=== PATIENT | female | born 1935 | race Caucasian/White ===

== ENCOUNTER 2016-11-01 15:29 | Inpatient (IN) | payer OTHER ==
[2016-11-01] MEDS ORDERED: MAGNESIUM SULF 50% (8.12 MEQ/2 ML-1 GM VIAL) IVPB ONE (15:48)
[2016-11-01] MEDS ORDERED: methylPREDNISolone NA SUCC 125 MG/2 ML VIAL IVPB ONE (15:48)
[2016-11-01] MEDS ORDERED: ALBUTEROL SO4 0.083% IH SOL 2.5 MG/3 ML VIAL.NEB. NEB PRN ×2 (15:48→17:56)
--- NOTE | 2016-11-01 15:48 | PDOC ---
History of Present Illness - General History Source: Patient - History of Present Illness Initial Comments: 11/01/16 16:29 The patient is an 81 year old female with a significant past medical history of COPD and HTN who is sent to the Emergency Department by Dr. Sparks for sob and hypoxia today. Pt reports experiencing productive cough with yellow sputum, SOB , and nasal congestion for one week. She denies fever, chills, abdominal pain, nausea, vomiting, chest pain, diarrhea , dysuria, hematuria, dizziness, headache, swelling. Pt is on Advir x2/day. Pt baseline O2 SAT is 91, was ~[address] Sparks office. Per family, the pt was given O2 but the pt declined it and ultimately returned it. (-) recent travel (-) sick contact PSH:appendectomy ( at age 14) SH: Former smoker PCP: Dr. Mundo Sparks Warehouse Assistant: Dr. Morris <Radhika Lopez - Last Filed: 11/01/16 16:29> <Filemon Voss - Last Filed: 11/01/16 17:53> - General Chief Complaint: Respiratory Stated Complaint: SOB, (PCP SENT) ADMIT Time Seen by Provider: 11/01/16 15:47 Past History <Radhika Lopez - Last Filed: 11/01/16 16:29> - Past Medical History Anemia: No Asthma: No Cancer: No Cardiac Disorders: No CVA: No COPD: Yes CHF: No Dementia: No Diabetes: No GI Disorders: No Disorders: No HTN: Yes Hypercholesterolemia: No Liver Disease: No Seizures: No Thyroid Disease: No - Surgical History Abdominal Surgery: No Appendectomy: Yes (age 14) Cardiac Surgery: No Cholecystectomy: No Lung Surgery: No Neurologic Surgery: No Orthopedic Surgery: No - Psycho/Social/Smoking Cessation Hx Anxiety: No Suicidal Ideation: No Smoking History: Former smoker Have you smoked in the past 12 months: No If you are a former smoker, when did you quit?: 1989 Information on smoking cessation initiated: No Hx Alcohol Use: No Drug/Substance Use Hx: No Substance Use Type: None Hx Substance Use Treatment: No <Filemon Voss - Last Filed: 11/01/16 17:53> - Past Medical History Allergies/Adverse Reactions: Allergies Allergy/AdvReac Type Severity Reaction Status Date / Time No Known Allergies Allergy Verified 11/01/16 15:46 Home Medications: Ambulatory Orders Amlodipine Besylate [Norvasc -] 10 mg PO DAILY 12/28/13 Losartan/Hydrochlorothiazide [Losartan-Hctz 100-25 mg Tab] 1 each PO DAILY 12/28 Nebivolol HCl [Bystolic] 5 mg PO DAILY 12/28/13 Oxycodone HCl [Roxicodone -] 5 mg PO Q6H PRN #7 tablet 12/28/13 Salmeterol/Fluticasone [Advair 250Mcg/50Mcg -] 1 inh IH BID 12/28/13 Tramadol HCl [Ultram] 50 mg PO QID PRN #20 tablet 12/28/13 Review of Systems - Review of Systems Able to Perform ROS?: Yes Comments:: 11/01/16 16:30 CONSTITUTIONAL: No reported: Fever, Chills, Diaphoresis, Generalized Weakness, Malaise, Loss of Appetite HEENT: Yes: nasal congestion No reported: Rhinorrhea,Throat Pain, Throat Swelling, Difficulty Swallowing, Mouth Swelling, Ear Pain, Eye Pain, Visual Changes CARDIOVASCULAR: No reported: Chest Pain, Syncope, Palpitations, Irregular Heart Rate, Lightheadedness, Peripheral Edema RESPIRATORY: Yes: cough, SOB No reported: Wheezing, Stridor, Hemoptysis GASTROINTESTINAL: No reported: Abdominal pain, Abdominal Distension, Nausea, Vomiting, Diarrhea, Constipation, Melena, Hematochezia GENITOURINARY: No reported: Dysuria, Frequency, Urgency, Hesitancy, Flank Pain, Genital Pain MUSCULOSKELETAL: No reported: Myalgia, Arthralgia, Joint Swelling, Back pain, Neck Pain SKIN: No reported: Rash, Itching, Pallor HEMEATOLOGIC/IMMUNOLOGIC: No reported: Easy Bleeding, Easy Bruising, Lymphadenopathy, Frequent infections ENDOCRINE: No reported: Unexplained Weight Gain, Unexplained Weight Loss, Heat Intolerance , Cold Intolerance NEUROLOGIC: No reported: Headache, Focal Weakness, Paresthesias, Vertigo, Lightheadedness, Unsteady Gait, Seizure, Mental Status Changes, Incontinence PSYCHIATRIC: No reported: Anxiety, Depression All Other Systems: Reviewed and Negative <Radhika Lopez - Last Filed: 11/01/16 16:29> *Physical Exam - Vital Signs Last Vital Signs Temp Pulse Resp BP Pulse Ox 97.5 F L 71 20 155/75 80 L 11/01/16 15:31 11/01/16 15:31 11/01/16 15:31 11/01/16 15:31 11/01/16 15:31 - Physical Exam Comments: 11/01/16 16:31 GENERAL: The patient is awake, alert, and fully oriented, Nontoxic - in no acute distress. HEAD: Normocephalic, atraumatic. EYES: extraocular movements intact, sclera anicteric, conjunctiva clear. ENT: Normal voice, Moist mucous membranes. NECK: Normal range of motion, supple LUNGS: mild tachypnea, scant wheezing, speaking long sentences, in no obvious distress HEART: Regular rate and rhythm, normal S1 and S2 without murmur, rub or gallop. ABDOMEN: Soft, nontender, normoactive bowel sounds. No guarding, no rebound. . No CVA tenderness EXTREMITIES: Normal range of motion, no edema. No clubbing or cyanosis. No cords, erythema, or tenderness. NEUROLOGICAL: No facial assymetry, Normal speech, moving all 4 extermities spontaneously and symmetrically PSYCH: Normal mood, normal affect. SKIN: Warm, Dry, normal turgor, <Radhika Lopez - Last Filed: 11/01/16 16:29> - Vital Signs Last Vital Signs Temp Pulse Resp BP Pulse Ox 97.5 F L 71 20 155/75 80 L 11/01/16 15:31 11/01/16 15:31 11/01/16 15:31 11/01/16 15:31 11/01/16 15:31 <Filemon Voss - Last Filed: 11/01/16 17:53> Heart Score/ECG Review - ECG Impressions Comment:: 11/01/16 17:52 Twelve-lead EKG was performed and reviewed by me. There is normal sinus rhythm with a normal rate. rate of [address]-T wave abnormality <Filemon Voss - Last Filed: 11/01/16 17:53> ED Treatment Course - LABORATORY CBC & Chemistry Diagram: 11/01/16 16:20 11/01/16 16:20 <Radhika Lopez - Last Filed: 11/01/16 16:29> - LABORATORY CBC & Chemistry Diagram: 11/01/16 16:20 11/01/16 16:20 <Filemon Voss - Last Filed: 11/01/16 17:53> Medical Decision Making - Medical Decision Making 11/01/16 16:04 81y F hx of hypertension, COPD presenting with 1 week of mild nasal congestion, cough or productive of yellowish sputum, without any associated fevers, chills, chest pain, nausea, vomiting, diaphoresis, abdominal pain. On exam the patient is well-appearing, mildly tachypneic however in no acute distress, speaking in long sentences, very mild, scattered wheezing on exam. Suspect possible COPD exacerbation secondary to pna vs influenza vs viral syndrome consider less likely acs w/o cp or typical anginal sypmtoms - will ck screening ekg will obtain blood work, vbg, cxr will give neb will reassess on 3L of NC, sat improves to 80 --> [address] sparks A portion of this note was documented by scribe services under my direction. I have reviewed the details of the note, within reason, and agree with the documentation with the following case summary and management plan written by me 11/01/16 17:15 influenza A postiive will give tamiflu as pts sat is so low, anticipate admission 11/01/16 17:50 labs erviewed will admit for further management of influenza and hypoxia to hospitlaist service. Case discussed in detail with admitting physician including history, physical exam and ancillary studies. Admitting physician has assumed care for the patient, will follow all pending diagnostics and will complete the evaluation and treatment. <Filemon Voss - Last Filed: 11/01/16 17:53> *DC/Admit/Observation/Transfer - Attestations Scribe Attestion: 11/01/16 16:31 Documentation prepared by Radhika Lopez, acting as medical radiation tech for Filemon Voss MD. <Radhika Lopez - Last Filed: 11/01/16 16:29> - Discharge Dispostion Admit: Yes <Filemon Voss - Last Filed: 11/01/16 17:53> Diagnosis at time of Disposition: Influenza due to influenza virus, type A, human, Hypoxia
[2016-11-01] MEDS ORDERED: MAGNESIUM SULF 50% (8.12 MEQ/2 ML-1 GM VIAL) ONE (16:05)
[2016-11-01] MEDS ORDERED: methylPREDNISolone NA SUCC 125 MG/2 ML VIAL ONE (16:06)
[2016-11-01] MEDS ORDERED: ALBUTEROL SO4 2.5/IPRATROPIUM 0.5 INH SOL 3 ML VIAL.NEB. NEB ONE (16:30)
[2016-11-01 16:33] LABS: MCHC 33.2 g/dl (32.0-36.0); MEAN CELL VOLUME 90.5 fl (80-96); PLATELET COUNT 458 K/MM3 (134-434); RDW 13.1 % (11.6-15.6); WHITE BLOOD COUNT 6.9 K/mm3 (4.0-10.0)
[2016-11-01 17:08] LABS: VENOUS BLOOD GAS HCO3 28.1 meq/L (22-29); VENOUS PH 7.39 (7.31-7.41)
[2016-11-01] MEDS ORDERED: OSELTAMIVIR PHOSPHATE 75 MG CAPSULE PO ONE (17:10)
[2016-11-01] MEDS ORDERED: OSELTAMIVIR PHOSPHATE 75 MG CAPSULE ONE (17:16)
[2016-11-01 17:19] LABS: ALBUMIN 3.8 g/dl (3.4-5.0); ANION GAP 9 (8-16); CALCIUM 9.4 mg/dL (8.5-10.1); CO2 28 mmol/L (21-32); CREATININE 0.7 mg/dL (0.55-1.02); GLUCOSE,RANDOM 105 mg/dL (74-106); SGOT/AST 27 U/L (15-37); SGPT/ALT 28 U/L (12-78)
[2016-11-01 17:20] LABS: ALK PHOS 79 U/L (45-117); BILIRUBIN,TOTAL 0.7 mg/dL (0.2-1.0); TOT PROT 7.3 g/dl (6.4-8.2)
--- NOTE | 2016-11-01 17:49 | PN ---
Progress Note (short form) - Note Progress Note: PULMONARY CONSULTATION DICTATED 11/01/16 IMP ACUTE ON CHRONIC HYPOXEMIC RESPIRATORY FAILURE ADVANCED COPD WITH ACUTE EXACERBATION INFLUENZA A CHRONIC HYPONATREMIA RUL NODULE STABLE HTN PLAN IV STEROIDS INHALED BRONCHODILATORS TAMIFLU NASAL O2 TO MAINTAIN O2 SAT 90% OR GREATER DR ARANDA Problem List - Problems (1) Acute on chronic respiratory failure with hypoxemia Code(s): J96.21 - ACUTE AND CHRONIC RESPIRATORY FAILURE WITH HYPOXIA (2) Influenza A Code(s): J10.1 - FLU DUE TO OTH IDENT INFLUENZA VIRUS W OTH RESP MANIFEST (3) Hyponatremia Code(s): E87.1 - HYPO-OSMOLALITY AND HYPONATREMIA (4) COPD exacerbation Code(s): J44.1 - CHRONIC OBSTRUCTIVE PULMONARY DISEASE W (ACUTE) EXACERBATION (5) Lung nodule Code(s): R91.1 - SOLITARY PULMONARY NODULE
[2016-11-01] MEDS: methylPREDNISolone NA SUCC 40 MG/1 ML VIAL IVPB SCH ×2 (18:02→22:33)
[2016-11-01] MEDS: ALBUTEROL SO4 2.5/IPRATROPIUM 0.5 INH SOL 3 ML VIAL.NEB. NEB SCH (18:02)
[2016-11-01 19:37] LABS: METAMYELOCYTE 2 % (0-2); PLATELET ESTIMATE ADEQUATE (NORMAL); POLYCHROMASIA 1+
--- NOTE | 2016-11-01 19:53 | PN ---
<NicholasAriesJuju - Last Filed: 11/01/16 19:53> Teaching Attending Note Name of Resident: Corie Burak <Cheryl Silva - Last Filed: 11/01/16 21:47> Teaching Attending Note ATTENDING PHYSICIAN STATEMENT I saw and evaluated the patient. I reviewed the resident's note and discussed the case with the resident. I agree with the resident's findings and plan as documented. SUBJECTIVE: The patient is a 81 year old female, who presents to the emergency department sent in by PMD, Dr. Sparks with SOB and hypoxia today. The patient also reports 1 week of cold symptoms: weakness, mild nasal congestion, productive cough ( yellow sputum) and associated SOB without any associated fevers, chills or muscle pains. She denies chest pain, headache and dizziness. She denies nausea, vomit, diarrhea and constipation. She denies dysuria, frequency, urgency and hematuria. Patient denies any sick contacts. PMhx: COPD (not on home O2) and HTN Social Hx: Former smoker 20 years ago Fam hx- [place], Brain aneurysm OBJECTIVE: Physical Last Vital Signs Temp Pulse Resp BP Pulse Ox 97.5 F L 88 19 143/60 93 L 11/01/16 15:31 11/01/16 19:26 11/01/16 19:26 11/01/16 19:26 11/01/16 19:26 GENERAL: Awake, alert, and fully oriented, in no acute distress HEENT: Atraumatic. PERRLA, EOMI. Moist mucosa. No JVD + nasal congestion. +mild lymphadenopathy. No erythema or exudate. LUNGS: + Bilateral fine crackles. No distress, speaks full sentences, clear to auscultation bilaterally. No wheezing. HEART: Regular rate and rhythm, normal S1 and S2. + systolic murmur on the R 2nd ICS. No rubs or gallops, peripheral pulses normal and equal bilaterally. ABDOMEN: Soft, nontender, normoactive bowel sounds. No guarding, no rebound. No masses EXTREMITIES: Normal inspection, Normal range of motion, no edema. No clubbing or cyanosis. NEUROLOGICAL: Cranial nerves II through XII grossly intact. Normal speech, gait not observed, no focal sensorimotor deficits SKIN: + Redness to face. Warm, Dry, normal turgor, no rashes or lesions noted. CBCD WBC 6.9 K/mm3 (4.0-10.0) 11/01/16 16:20 RBC 4.54 M/mm3 (3.60-5.2) 11/01/16 16:20 Hgb 13.6 GM/dL (10.7-15.3) 11/01/16 16:20 Hct 41.1 % (32.4-45.2) 11/01/16 16:20 MCV 90.5 fl (80-96) 11/01/16 16:20 MCHC 33.2 g/dl (32.0-36.0) 11/01/16 16:20 RDW 13.1 % (11.6-15.6) 11/01/16 16:20 Plt Count 458 K/MM3 (134-434) H 11/01/16 16:20 MPV 9.0 fl (7.5-11.1) 11/01/16 16:20 CMP Sodium 126 mmol/L (136-145) L 11/01/16 16:20 Potassium 4.2 mmol/L (3.5-5.1) 11/01/16 16:20 Chloride 89 mmol/L (98-107) L 11/01/16 16:20 Carbon Dioxide 28 mmol/L (21-32) 11/01/16 16:20 Anion Gap 9 (8-16) 11/01/16 16:20 BUN 13 mg/dL (7-18) 11/01/16 16:20 Creatinine 0.7 mg/dL (0.55-1.02) 11/01/16 16:20 Creat Clearance w eGFR > 60 (>60) 11/01/16 16:20 Calcium 9.4 mg/dL (8.5-10.1) 11/01/16 16:20 Total Bilirubin 0.7 mg/dL (0.2-1.0) 11/01/16 16:20 AST 27 U/L (15-37) 11/01/16 16:20 ALT 28 U/L (12-78) 11/01/16 16:20 Alkaline Phosphatase 79 U/L (45-117) 11/01/16 16:20 Total Protein 7.3 g/dl (6.4-8.2) 11/01/16 16:20 Albumin 3.8 g/dl (3.4-5.0) 11/01/16 16:20 IMAGING: Chest Xray Mild noncardiogenic pulmonary venous congestion versus interstitial infiltrates. ASSESSMENT AND PLAN: The patient is a 81 yo F wih a PMhx of HTN and COPD who is being admitted for acute respiratory failure secondary to COPD exacerbation with Influenza A. 1.) Acute Hypoxic Respiratory failure with hx of COPD - 3 L O2 via NC - Nebulization Q6 - Prednisone 40 mg PO DAILY - Maintain O2 saturation equal or greater to 90 - Pulmonary consult appreciated 2.) Influenza A Positive - Tamiflu - Respiratory Isolation - Tylenol PRN - Z Pack 3.) Newly identified Murmur - Get Echo Admit to Med Surg. Documentation prepared by Cheryl Silva, acting as diagnostic medical sonographer for Juju Peterson MD.
--- NOTE | 2016-11-01 21:02 | HP ---
CHIEF COMPLAINT: Cough PCP: Dr. Mundo Sparks Factory Focus Technician: Dr. Morris HISTORY OF PRESENT ILLNESS: The pt is a 84 year old female with a significant PMH of COPD, (not on Oxygen at home), HTN who presents to the hospital with productive cough that started one week ago. It is associated with yellow sputum production. Additionally she has been complaining of SOB and postnasal drip. Yesterday she noticed weakness. She visited her PCP today who referred her to the hospital because her oxygen saturation was ~80. Her baseline Oxygen Sat. is above 90. She is also complaining of chronic constipation. She denies fever, chills, muscle pains, sore throat, problems with swallowing, chest pain, palpitations. She denies N/V , diarrhea, LOC, dysuria, increased urgency, frequency. She denies sick contacts. ER course was notable for: (1)Chest X ray (2)Oxyg Sat 93 NC (3)Influenza A PAST MEDICAL HISTORY: COPD, HTN PAST SURGICAL HISTORY: Appendectomy Social History: Smoking:Former smoker, quit 30-40 years ago Alcohol:Denies Drugs: Denies Family History: [place], Aortic aneurism Mother: Brain hemorrhage Allergies No Known Allergies Allergy (Verified 11/01/16 15:46) HOME MEDICATIONS: Medication Instructions Recorded Amlodipine Besylate [Norvasc -] 10 mg PO DAILY 12/28/13 Losartan/Hydrochlorothiazide 1 each PO DAILY 12/28/13 [Losartan-Hctz 100-25 mg Tab] Nebivolol HCl [Bystolic] 5 mg PO DAILY 12/28/13 Salmeterol/Fluticasone [Advair 1 inh IH BID 12/28/13 250Mcg/50Mcg -] REVIEW OF SYSTEMS CONSTITUTIONAL: generalized weakness Absent: fever, chills, diaphoresis, malaise, loss of appetite, weight change HEENT: postnasal drip Absent: rhinorrhea, throat pain, throat swelling, difficulty swallowing, mouth swelling, ear pain, eye pain, visual changes CARDIOVASCULAR: Absent: chest pain, syncope, palpitations, irregular heart rate, lightheadedness , peripheral edema RESPIRATORY:cough Absent: shortness of breath, dyspnea with exertion, orthopnea, wheezing, stridor , hemoptysis GASTROINTESTINAL:constipation Absent: abdominal pain, abdominal distension, nausea, vomiting, diarrhea, , melena, hematochezia GENITOURINARY: Absent: dysuria, frequency, urgency, hesitancy, hematuria, flank pain, genital pain MUSCULOSKELETAL: Absent: myalgia, arthralgia, joint swelling, back pain, neck pain SKIN: Absent: rash, itching, pallor HEMATOLOGIC/IMMUNOLOGIC: Absent: easy bleeding, easy bruising, lymphadenopathy, frequent infections ENDOCRINE: Absent: unexplained weight gain, unexplained weight loss, heat intolerance, cold intolerance NEUROLOGIC: Absent: headache, focal weakness or paresthesias, dizziness, gait not observed, seizure, mental status changes, bladder or bowel incontinence PSYCHIATRIC: Absent: anxiety, depression, suicidal or homicidal ideation, hallucinations. PHYSICAL EXAMINATION Vital Signs - 24 hr 11/01/16 19:26 Pulse Rate [ 88 Apical] Respiratory 19 Rate Blood Pressure 143/60 [Right Arm] O2 Sat by Pulse 93 L Oximetry (%) GENERAL: Awake, alert, and fully oriented, in no acute distress. HEAD: Normal with no signs of trauma. EYES: Pupils equal, round and reactive to light, extraocular movements intact, sclera anicteric, conjunctiva clear. No lid lag. EARS, NOSE, THROAT: Ears normal, nares congested, oropharynx clear without exudates. Moist mucous membranes. NECK: Normal range of motion, supple without lymphadenopathy, JVD, or masses. LUNGS: Breath sounds equal, mild fine crackles B/L, no wheezes, no accessory muscle use. HEART: Regular rate and rhythm, normal S1 and S2, systolic murmur in second right intercostal space and apex, rub or gallop. ABDOMEN: Soft, nontender, not distended, normoactive bowel sounds, no guarding, no rebound, no masses. No hepatomegaly or splenomegaly. MUSCULOSKELETAL: Normal range of motion at all joints. No bony deformities or tenderness. No CVA tenderness. UPPER EXTREMITIES: 2+ pulses, warm, well-perfused. No cyanosis. No clubbing. Cap refill <2 seconds. No peripheral edema. LOWER EXTREMITIES: 2+ pulses, warm, well-perfused. No calf tenderness. No peripheral edema. NEUROLOGICAL: Cranial nerves II-XII intact. Normal speech. Normal gait. PSYCHIATRIC: Cooperative. Good eye contact. Appropriate mood and affect. SKIN: Warm, dry, normal turgor, rash on face. Chest Xray Mild noncardiogenic pulmonary venous congestion versus interstitial infiltrates. ASSESSMENT/PLAN: The pt is a 84 year old female with a significant PMH of COPD, HTN who presents to the hospital with productive cough. It started one week ago, she produced yellow sputum associated with SOB and postnasal drip. Yesterday she noticed weakness.She visited her PCP today who referred her to the hospital because her oxygen saturation was low. In the ED it was 80 and improved to 93 on NC. Acute respiratory failure due to COPD exacerbation: -continue Douonebs, Albuterol -continue Methylprednisolone 40 mg Q6h -Oxygen supplementation 3L NC - continue Azithromycin Influenza A -Tamiflu -respiratory isolation -Tylenol 650 mg Q6H -vital signs -repeart CBC, BMP in AM Chronic hyponatremia: -monitor -IVF Newly identified heart murmur; -ECHO HTN: continue home medications: Losartan/HCTZ and Amlodypine 10 mg, Bystolic 5 mg Daily DVT prophylaxis: -SCDs F/E/N: NS/Low Na/Regular Disposition; med surg Problem List - Problem (1) Acute on chronic respiratory failure with hypoxemia Code(s): J96.21 - ACUTE AND CHRONIC RESPIRATORY FAILURE WITH HYPOXIA (2) COPD exacerbation Code(s): J44.1 - CHRONIC OBSTRUCTIVE PULMONARY DISEASE W (ACUTE) EXACERBATION (3) Hyponatremia Code(s): E87.1 - HYPO-OSMOLALITY AND HYPONATREMIA (4) Influenza A Code(s): J10.1 - FLU DUE TO OTH IDENT INFLUENZA VIRUS W OTH RESP MANIFEST (5) Lung nodule Code(s): R91.1 - SOLITARY PULMONARY NODULE Visit type - Emergency Visit Emergency Visit: Yes ED Registration Date: 11/01/16 Care time: The patient presented to the Emergency Department on the above date and was hospitalized for further evaluation of their emergent condition. - New Patient This patient is new to me today: Yes Date on this admission: 11/02/16 - Critical Care Critical Care patient: No
[2016-11-01] MEDS ORDERED: ACETAMINOPHEN 325 MG TABLET (FP) PO PRN (21:15)
[2016-11-01 23:22] VITALS: BMI 24.2
[2016-11-02] MEDS ORDERED: AZITHROMYCIN IVPB 250 ML IVPB ONE (02:00)
[2016-11-02] MEDS: methylPREDNISolone NA SUCC 40 MG/1 ML VIAL IVPB SCH ×4 (03:06→21:01)
[2016-11-02] MEDS ORDERED: OSELTAMIVIR PHOSPHATE 30 MG CAPSULE PO SCH (06:00)
[2016-11-02] MEDS ORDERED: OSELTAMIVIR PHOSPHATE 75 MG CAPSULE PO SCH (06:00)
[2016-11-02] MEDS ORDERED: PT OWN MED DRAWER 7, Y5N ONE ×3 (06:28→22:03)
[2016-11-02] MEDS: guaiFENesin 200 MG/10 ML 10 ML UNIT-DOSE CUPS PO PRN ×2 (06:50→14:00)
[2016-11-02] MEDS: OSELTAMIVIR PHOSPHATE 6 MG/1 ML - 60ML BOTTLE PO SCH ×2 (06:50→09:36)
[2016-11-02] MEDS: ALBUTEROL SO4 2.5/IPRATROPIUM 0.5 INH SOL 3 ML VIAL.NEB. NEB SCH ×4 (07:05→19:35)
--- NOTE | 2016-11-02 08:37 | CONS ---
DATE OF CONSULTATION: 11/01/2016 REFERRING PHYSICIAN: Dr. Sparks HISTORY: The patient is an 81-year-old white female known to me from previous office visits who has COPD and bronchodilators and refuses O2, hypertension, history of right upper lobe nodule stable since 2010, history of tobacco use years ago admitted to [facility] with increasing shortness of breath, cough, and bronchospasm. The patient for the past week or so has been having increased shortness of breath, cough with yellow sputum as well as nasal congestion. She denied any chest pain or palpitations. She denied any fever or chills. She refused to go to the emergency room the past couple of days. Today she went to Dr. Sparks' office and noted to be mildly hypoxic in the 80s at which time the patient was referred to the emergency room. In the ER, she denies inhaled bronchodilators with some improvement. Influenza screen came back positive for influenza A. A stated before, she has a longstanding history of COPD and has refused home O2. She had O2 and returned it back to the distributor. She also has a history of hypertension. There is no history of occupational exposures to chemicals or fumes. MEDICATIONS: Prior to admission include Norvasc, losartan, Advair, Ultram, Roxicodone, and Bystolic. REVIEW OF SYSTEMS: Positive shortness of breath, positive cough, positive bronchospasm. No chest pain, no palpitations, no nausea, no vomiting. Positive cough, positive sputum. No hemoptysis. PHYSICAL EXAMINATION: General: The patient is an elderly white female well developed, well nourished dyspneic in no acute respiratory distress. Vital Signs: She is currently afebrile. Blood pressure is 155/75, respiratory rate is 20, O2 saturation is in the 80s at rest room air, 94 on O2. HEENT: Normocephalic and atraumatic. Neck: Supple. Heart: Regular with normal S1, S2. Chest: A few scattered bilateral wheezes, bibasilar crackles. Abdomen: Soft. Bowel sounds are positive. Extremities: No cyanosis or edema. LABORATORIES: WBCs 6.9, hemoglobin 13.6, hematocrit 41.4 with a platelet count of 458,000. Blood gas VBG: PH 7.39, PCO2 of 47, PO2 of 39.3. Sodium 126, BUN 13, creatinine 0.7. Chest x-ray revealed increased markings bilaterally. IMPRESSION: 1. Advanced chronic obstructive pulmonary disease with acute exacerbation. 2. Influenza A. 3. History of chronic hyponatremia. 4. Hypertension. 5. History of right upper nodule, stable since 2010. PLAN: IV steroids, inhaled bronchodilators, Tamiflu, supplemental O2, obtain follow up chest x-rays, cultures. DONOVAN ARANDA M.D. [id number]
[2016-11-02 09:20] LABS: MCH 31.6 pg (25.7-33.7); MCHC 34.8 g/dl (32.0-36.0); MEAN CELL VOLUME 90.7 fl (80-96); MEAN PLT VOLUME 9.2 fl (7.5-11.1); PLATELET COUNT 401 K/MM3 (134-434); RDW 13.2 % (11.6-15.6); WHITE BLOOD COUNT 7.7 K/mm3 (4.0-10.0)
[2016-11-02 10:07] LABS: CALCIUM 8.7 mg/dL (8.5-10.1); CREATININE 0.6 mg/dL (0.55-1.02)
[2016-11-02] MEDS: LOSARTAN 50MG/HCTZ 12.5MG 1 TAB (FP) PO SCH (10:36)
[2016-11-02] MEDS: amLODIPine BESYLATE 10 MG TABLET (FP) PO SCH (10:37)
[2016-11-02] MEDS: NEBIVOLOL 5 MG TABLET (FP) PO SCH (10:37)
[2016-11-02] MEDS: BUDESONIDE/FORMETEROL FUMARATE 80/4.5 mcg INHALER IH SCH ×2 (10:38→21:01)
--- NOTE | 2016-11-02 12:52 | PN ---
Progress Note (short form) - Note Progress Note: ID consult dictated imp/reccd influenza A copd tamiflu isolation steroids/nebs per pulmonary d/w Dr Morris
--- NOTE | 2016-11-02 12:52 | PN ---
Progress Note, Physician History of Present Illness: PULMONARY ALERT,FEELING BETTER LESS DYSPNEIC,LESS COUGH - Current Medication List Current Medications: Active Medications Acetaminophen (Tylenol -) 650 mg PO Q6H PRN PRN Reason: FEVER OR PAIN Albuterol Sulfate (Ventolin 0.083% Nebulizer Soln -) 1 amp NEB Q4H PRN PRN Reason: SHORT OF BREATH/WHEEZING Albuterol/Ipratropium (Duoneb -) 1 amp NEB QIDR [facility] Last Admin: 11/02/16 11:50 Dose: 1 amp Amlodipine Besylate (Norvasc -) 10 mg PO DAILY [facility] Last Admin: 11/02/16 10:37 Dose: 10 mg Budesonide/Formoterol Fumarate (Symbicort 80/4.5mcg -) 2 puff IH BID [facility] Last Admin: 11/02/16 10:38 Dose: 2 puff Guaifenesin (Robitussin -) 10 ml PO Q6H PRN PRN Reason: COUGH Last Admin: 11/02/16 06:50 Dose: 10 ml HCTZ/Losartan Potassium (Hyzaar -) 2 tab PO DAILY [facility] Last Admin: 11/02/16 10:36 Dose: 2 tab Methylprednisolone Sodium Succinate (Solu-Medrol -) 40 mg IVPB Q6H-IV [facility] Last Admin: 11/02/16 08:42 Dose: 40 mg Nebivolol (Bystolic -) 5 mg PO DAILY [facility] Last Admin: 11/02/16 10:37 Dose: 5 mg Oseltamivir Phosphate (Tamiflu Oral Suspension -) 30 mg PO BID [facility] Last Admin: 11/02/16 09:36 Dose: Not Given - Objective Vital Signs: Vital Signs Temperature 98.4 F 11/02/16 08:00 Pulse Rate 78 11/02/16 12:20 Respiratory Rate 20 11/02/16 08:00 Blood Pressure 143/75 11/02/16 08:00 O2 Sat by Pulse Oximetry (%) 94 L 11/02/16 12:20 Constitutional: Yes: Well Nourished, Calm Eyes: Yes: WNL HENT: Yes: WNL Neck: Yes: WNL Cardiovascular: Yes: Regular Rate and Rhythm, S1, S2 Respiratory: Yes: Wheezes (LESS WHEEZES JONN) Gastrointestinal: Yes: Normal Bowel Sounds, Soft Extremities: Yes: WNL Edema: No Labs: CBC, BMP 11/02/16 08:00 11/02/16 08:00 Problem List - Problems (1) Acute on chronic respiratory failure with hypoxemia Code(s): J96.21 - ACUTE AND CHRONIC RESPIRATORY FAILURE WITH HYPOXIA (2) Influenza A Code(s): J10.1 - FLU DUE TO OTH IDENT INFLUENZA VIRUS W OTH RESP MANIFEST (3) Hyponatremia Code(s): E87.1 - HYPO-OSMOLALITY AND HYPONATREMIA (4) COPD exacerbation Code(s): J44.1 - CHRONIC OBSTRUCTIVE PULMONARY DISEASE W (ACUTE) EXACERBATION (5) Lung nodule Code(s): R91.1 - SOLITARY PULMONARY NODULE Assessment/Plan IMP ACUTE ON CHRONIC HYPOXEMIC RESPIRATORY FAILURE ADVANCED COPD WITH ACUTE EXACERBATION INFLUENZA A CHRONIC HYPONATREMIA RUL NODULE STABLE HTN PLAN CONTINUE IV STEROIDS INHALED BRONCHODILATORS TAMIFLU NASAL O2 TO MAINTAIN O2 SAT 90% OR GREATER DR ARANDA Problem List - Problems (1) Acute on chronic respiratory failure with hypoxemia Code(s): J96.21 - ACUTE AND CHRONIC RESPIRATORY FAILURE WITH HYPOXIA (2) Influenza A Code(s): J10.1 - FLU DUE TO OTH IDENT INFLUENZA VIRUS W OTH RESP MANIFEST (3) Hyponatremia Code(s): E87.1 - HYPO-OSMOLALITY AND HYPONATREMIA (4) COPD exacerbation Code(s): J44.1 - CHRONIC OBSTRUCTIVE PULMONARY DISEASE W (ACUTE) EXACERBATION (5) Lung nodule Code(s): R91.1 - SOLITARY PULMONARY NODULE
--- NOTE | 2016-11-02 13:35 | CONS ---
INFECTIOUS DISEASE CONSULTATION DATE OF CONSULTATION: DATE OF DICTATION: 11/02/2016 HISTORY: This is an 81-year-old woman with a past medical history of COPD. She did get a flu shot this year. She presented with a 1-week history of a cough with productive sputum, runny nose. She denies any fevers or chills. She did have progressive shortness of breath. She saw her primary doctor who noted she was hypoxic and advised her to come to the emergency room. She was noted to have an O2 saturation in the 80s, and her baseline is above 90. She has no complaints of nausea/vomiting, diarrhea or dysuria. She denies fevers or chills. She had an influenza screen done in the emergency room that was positive, and she was noted to be mildly hypoxic. PAST MEDICAL HISTORY: Her past medical history is notable for: 1. COPD 2. Hypertension SURGICAL HISTORY: Appendectomy FAMILY HISTORY: She has a family history of aortic aneurysm and brain hemorrhage in her parents. ALLERGIES: She has no known drug allergies MEDICATIONS: Medications at home: 1. Norvasc 2. Losartan 3. Hydrochlorothiazide 4. Bystolic 5. Advair SOCIAL HISTORY: She is a former smoker. She quit many years. There is no history of any substance use. She lives alone. REVIEW OF SYSTEMS: Review of systems is as per HPI. She is anxious to go home. PHYSICAL EXAM: Vital signs: Temperature is 98.4. Blood pressure is 143/75. Pulse is 78. Respiratory rate is 20. She is having 94% on 3 liters. HEENT exam: She is normocephalic. Her eyes are anicteric. She has no thrush or pharyngitis. Her neck is supple. Lungs: Her lungs have scattered rhonchi. Heart: Her heart is regular rate and rhythm. Abdomen: Her abdomen is soft, nontender. Extremities: Extremities are without edema. White count is 7.7, hemoglobin 12. Platelets are 401. BUN and creatinine are 18 and 0.6. LFTs are normal. Influenza screen is positive. SUMMARY: This is an 81-year-old woman with influenza, COPD and some hypoxemia. Her chest x-ray is negative for any infiltrate. Suspect her hypoxemia is due to acute viral illness and COPD exacerbation. PLAN: Would treat her with: 1. Tamiflu droplet 2. Isolation 3. Steroids 4. Nebulizer for pulmonary 5. O2 as needed Case was discussed with Dr. Edgar Morris who is her allied health professional. Arlene [id number]
--- NOTE | 2016-11-02 20:58 | PN ---
Physical Exam: SUBJECTIVE: Patient seen and examined Patient is feeling better, with no acute distress. No further hemoptysis, no nausea or vomiting. OBJECTIVE: Vital Signs Temperature 98.5 F 11/02/16 17:00 Pulse Rate 70 11/02/16 17:00 Respiratory Rate 20 11/02/16 17:00 Blood Pressure 135/60 11/02/16 17:00 O2 Sat by Pulse Oximetry (%) 92 L 11/02/16 15:00 GENERAL: The patient is awake, alert, and fully oriented, in no acute distress. HEAD: Normal with no signs of trauma. EYES: PERRL, extraocular movements intact, sclera anicteric, conjunctiva clear. ENT: Ears normal, oropharynx clear without exudates, moist mucous membranes. NECK: Trachea midline, full range of motion, supple. LUNGS: Breath sounds equal, clear to auscultation bilaterally, no wheezes, no crackles, no accessory muscle use. HEART: Regular rate and rhythm, S1, S2 without murmur, rub or gallop. ABDOMEN: Soft, nontender, nondistended, normoactive bowel sounds, no guarding, no rebound, no hepatosplenomegaly, no masses. EXTREMITIES: 2+ pulses, warm, well-perfused, no edema. NEUROLOGICAL: Cranial nerves II through XII grossly intact. Normal speech, gait not observed. PSYCH: Normal mood, normal affect. SKIN: Warm, dry, normal turgor, no rashes or lesions noted CBCD WBC 7.7 K/mm3 (4.0-10.0) 11/02/16 08:00 RBC 3.80 M/mm3 (3.60-5.2) 11/02/16 08:00 Hgb 12.0 GM/dL (10.7-15.3) D 11/02/16 08:00 Hct 34.4 % (32.4-45.2) D 11/02/16 08:00 MCV 90.7 fl (80-96) 11/02/16 08:00 MCHC 34.8 g/dl (32.0-36.0) 11/02/16 08:00 RDW 13.2 % (11.6-15.6) 11/02/16 08:00 Plt Count 401 K/MM3 (134-434) 11/02/16 08:00 MPV 9.2 fl (7.5-11.1) 11/02/16 08:00 CMP Sodium 126 mmol/L (136-145) L 11/02/16 08:00 Potassium 4.6 mmol/L (3.5-5.1) 11/02/16 08:00 Chloride 89 mmol/L (98-107) L 11/02/16 08:00 Carbon Dioxide 29 mmol/L (21-32) 11/02/16 08:00 Anion Gap 8 (8-16) 11/02/16 08:00 BUN 18 mg/dL (7-18) D 11/02/16 08:00 Creatinine 0.6 mg/dL (0.55-1.02) 11/02/16 08:00 Creat Clearance w eGFR > 60 (>60) 11/01/16 16:20 Random Glucose 131 mg/dL (74-106) H D 11/02/16 08:00 Calcium 8.7 mg/dL (8.5-10.1) 11/02/16 08:00 Total Bilirubin 0.7 mg/dL (0.2-1.0) 11/01/16 16:20 AST 27 U/L (15-37) 11/01/16 16:20 ALT 28 U/L (12-78) 11/01/16 16:20 Alkaline Phosphatase 79 U/L (45-117) 11/01/16 16:20 Total Protein 7.3 g/dl (6.4-8.2) 11/01/16 16:20 Albumin 3.8 g/dl (3.4-5.0) 11/01/16 16:20 Active Medications Generic Name Dose Route Start Last Admin Trade Name Freq PRN Reason Stop Dose Admin Acetaminophen 650 mg 11/01/16 21:15 Tylenol - PO Q6H PRN FEVER OR PAIN Albuterol Sulfate 1 amp 11/01/16 17:56 Ventolin 0.083% Nebulizer Soln - NEB Q4H PRN SHORT OF BREATH/WHEEZING Albuterol/Ipratropium 1 amp 11/01/16 18:00 11/02/16 19:35 Duoneb - NEB 1 amp QIDR [facility] Administration Amlodipine Besylate 10 mg 11/02/16 10:00 11/02/16 10:37 Norvasc - PO 10 mg DAILY [facility] Administration Budesonide/Formoterol Fumarate 2 puff 11/02/16 10:00 11/02/16 10:38 Symbicort 80/4.5mcg - IH 2 puff BID [facility] Administration Guaifenesin 10 ml 11/02/16 06:36 11/02/16 14:00 Robitussin - PO 10 ml Q6H PRN Administration COUGH HCTZ/Losartan Potassium 2 tab 11/02/16 10:00 11/02/16 10:36 Hyzaar - PO 2 tab DAILY [facility] Administration Methylprednisolone Sodium Succinate 40 mg 11/01/16 18:00 11/02/16 14:00 Solu-Medrol - IVPB 40 mg Q6H-IV [facility] Administration Nebivolol 5 mg 11/02/16 10:00 11/02/16 10:37 Bystolic - PO 5 mg DAILY [facility] Administration Oseltamivir Phosphate 75 mg 11/02/16 22:00 Tamiflu - PO 11/07/16 23:00 BID [facility] ASSESSMENT/PLAN: The patient is a 81 yo F wih a PMhx of HTN and COPD who is being admitted for acute respiratory failure secondary to COPD exacerbation with Influenza A. # Acute Hypoxic Respiratory failure with hx of COPD , on 3 L O2 via NC, nebulizer treatments, solumedrol IV q6h, symbicort Maintain O2 saturation equal or greater to 90, Pulmonary consult appreciated # Influenza A Positive continue Tamiflu , Respiratory Isolation, droplet precaution - Tylenol PRN , Z Pack # HTN continue Norvasc ,losartan,hctz # Newly identified Murmur Get Echo Admit to Med Surg. Visit type - Emergency Visit Emergency Visit: Yes ED Registration Date: 11/01/16 Care time: The patient presented to the Emergency Department on the above date and was hospitalized for further evaluation of their emergent condition. - New Patient This patient is new to me today: Yes Date on this admission: 11/02/16 - Critical Care Critical Care patient: No
[2016-11-02] MEDS: OSELTAMIVIR PHOSPHATE 75 MG CAPSULE PO SCH (21:01)
--- NOTE | 2016-11-02 23:29 | EKG ---
Test Reason : Blood Pressure : / mmHG Vent. Rate : 086 BPM Atrial Rate : 086 BPM P-R Int : 158 ms QRS Dur : 094 ms QT Int : 386 ms P-R-T Axes : 076 053 050 degrees QTc Int : 461 ms NORMAL SINUS RHYTHM WITH SINUS ARRHYTHMIA POSSIBLE LEFT ATRIAL ENLARGEMENT NONSPECIFIC ST ABNORMALITY ABNORMAL ECG NO PREVIOUS ECGS AVAILABLE Confirmed by DONNA HARDIN MD ([id number]) on 11/02/2016 11:28:41 PM Referred By: Confirmed By:DONNA HARDIN MD
[2016-11-03] MEDS: ALBUTEROL SO4 2.5/IPRATROPIUM 0.5 INH SOL 3 ML VIAL.NEB. NEB SCH ×4 (00:30→23:05)
[2016-11-03] MEDS: methylPREDNISolone NA SUCC 40 MG/1 ML VIAL IVPB SCH ×4 (02:06→21:19)
[2016-11-03] MEDS: guaiFENesin 200 MG/10 ML 10 ML UNIT-DOSE CUPS PO PRN (09:19)
[2016-11-03] MEDS: amLODIPine BESYLATE 10 MG TABLET (FP) PO SCH (09:20)
[2016-11-03] MEDS: OSELTAMIVIR PHOSPHATE 75 MG CAPSULE PO SCH ×2 (09:20→21:20)
[2016-11-03] MEDS: LOSARTAN 50MG/HCTZ 12.5MG 1 TAB (FP) PO SCH (09:21)
[2016-11-03] MEDS: BUDESONIDE/FORMETEROL FUMARATE 80/4.5 mcg INHALER IH SCH ×2 (09:23→21:19)
[2016-11-03] MEDS ORDERED: PT OWN MED DRAWER 7, Y5N ONE ×2 (09:23→21:08)
[2016-11-03] MEDS: NEBIVOLOL 5 MG TABLET (FP) PO SCH (09:24)
--- NOTE | 2016-11-03 10:46 | PN ---
Progress Note (short form) - Note Progress Note: Patient is feeling weak bur feeling better , son and grandson at bedside. Vital Signs Temperature 98.7 F 11/03/16 09:02 Pulse Rate 90 11/03/16 09:02 Respiratory Rate 20 11/03/16 09:02 Blood Pressure 131/71 11/03/16 09:02 O2 Sat by Pulse Oximetry (%) 96 11/02/16 21:00 GENERAL: The patient is awake, alert, and fully oriented, in no acute distress. HEAD: Normal with no signs of trauma. EYES: PERRL, extraocular movements intact, sclera anicteric, conjunctiva clear. ENT: Ears normal, oropharynx clear without exudates, moist mucous membranes. NECK: Trachea midline, full range of motion, supple. LUNGS: Breath sounds equal, clear to auscultation bilaterally, no wheezes, no crackles, no accessory muscle use. HEART: Regular rate and rhythm, S1, S2 without murmur, rub or gallop. ABDOMEN: Soft, nontender, nondistended, normoactive bowel sounds, no guarding, no rebound, no masses appreciated. EXTREMITIES: 2+ pulses, warm, well-perfused, no edema. NEUROLOGICAL: Cranial nerves II through XII grossly intact. Normal speech, gait not observed. PSYCH: Normal mood, normal affect. SKIN: Warm, dry, normal turgor, no rashes or lesions noted CBCD WBC 7.7 K/mm3 (4.0-10.0) 11/02/16 08:00 RBC 3.80 M/mm3 (3.60-5.2) 11/02/16 08:00 Hgb 12.0 GM/dL (10.7-15.3) D 11/02/16 08:00 Hct 34.4 % (32.4-45.2) D 11/02/16 08:00 MCV 90.7 fl (80-96) 11/02/16 08:00 MCHC 34.8 g/dl (32.0-36.0) 11/02/16 08:00 RDW 13.2 % (11.6-15.6) 11/02/16 08:00 Plt Count 401 K/MM3 (134-434) 11/02/16 08:00 MPV 9.2 fl (7.5-11.1) 11/02/16 08:00 CMP Sodium 126 mmol/L (136-145) L 11/02/16 08:00 Potassium 4.6 mmol/L (3.5-5.1) 11/02/16 08:00 Chloride 89 mmol/L (98-107) L 11/02/16 08:00 Carbon Dioxide 29 mmol/L (21-32) 11/02/16 08:00 Anion Gap 8 (8-16) 11/02/16 08:00 BUN 18 mg/dL (7-18) D 11/02/16 08:00 Creatinine 0.6 mg/dL (0.55-1.02) 11/02/16 08:00 Creat Clearance w eGFR > 60 (>60) 11/01/16 16:20 Random Glucose 131 mg/dL (74-106) H D 11/02/16 08:00 Calcium 8.7 mg/dL (8.5-10.1) 11/02/16 08:00 Total Bilirubin 0.7 mg/dL (0.2-1.0) 11/01/16 16:20 AST 27 U/L (15-37) 11/01/16 16:20 ALT 28 U/L (12-78) 11/01/16 16:20 Alkaline Phosphatase 79 U/L (45-117) 11/01/16 16:20 Total Protein 7.3 g/dl (6.4-8.2) 11/01/16 16:20 Albumin 3.8 g/dl (3.4-5.0) 11/01/16 16:20 Current Medications Generic Name Dose Route Start Last Admin Trade Name Freq PRN Reason Stop Dose Admin Acetaminophen 650 mg 11/01/16 21:15 Tylenol - PO Q6H PRN FEVER OR PAIN Albuterol Sulfate 1 amp 11/01/16 17:56 Ventolin 0.083% Nebulizer Soln - NEB Q4H PRN SHORT OF BREATH/WHEEZING Albuterol/Ipratropium 1 amp 11/01/16 18:00 11/03/16 06:15 Duoneb - NEB 1 amp QIDR [facility] Administration Amlodipine Besylate 10 mg 11/02/16 10:00 11/03/16 09:20 Norvasc - PO 10 mg DAILY [facility] Administration Budesonide/Formoterol Fumarate 2 puff 11/02/16 10:00 11/03/16 09:23 Symbicort 80/4.5mcg - IH 2 puff BID [facility] Administration Guaifenesin 10 ml 11/02/16 06:36 11/03/16 09:19 Robitussin - PO 10 ml Q6H PRN Administration COUGH HCTZ/Losartan Potassium 2 tab 11/02/16 10:00 11/03/16 09:21 Hyzaar - PO 2 tab DAILY [facility] Administration Methylprednisolone Sodium Succinate 40 mg 11/01/16 18:00 11/03/16 09:19 Solu-Medrol - IVPB 40 mg Q6H-IV [facility] Administration Nebivolol 5 mg 11/02/16 10:00 11/03/16 09:24 Bystolic - PO 5 mg DAILY [facility] Administration Oseltamivir Phosphate 75 mg 11/02/16 22:00 11/03/16 09:20 Tamiflu - PO 11/07/16 23:00 75 mg BID [facility] Administration Medication Instructions Recorded Amlodipine Besylate [Norvasc -] 10 mg PO DAILY 12/28/13 Losartan/Hydrochlorothiazide 1 each PO DAILY 12/28/13 [Losartan-Hctz 100-25 mg Tab] Nebivolol HCl [Bystolic] 5 mg PO DAILY 12/28/13 Salmeterol/Fluticasone [Advair 1 inh IH BID 12/28/13 250Mcg/50Mcg -] SSESSMENT/PLAN: The patient is a 81 yo F wih a PMhx of HTN and COPD who is being admitted for acute respiratory failure secondary to COPD exacerbation with Influenza A. # Acute Hyponatemia of 126 , patient is an elderly woman high risk for fall , nephrology consult , will hold Hctz for now and losartan # Acute Hypoxic Respiratory failure with hx of COPD , on 3 L O2 via NC, nebulizer treatments, solumedrol IV q6h, symbicort Maintain O2 saturation equal or greater to 90, Pulmonary consult appreciated # Influenza A Positive continue Tamiflu , Respiratory Isolation, droplet precaution - Tylenol PRN , Z Pack # HTN continue Norvasc ,losartan,hctz # Newly identified Murmur Get Echo Admit to Med Surg. Visit type - Emergency Visit Emergency Visit: Yes ED Registration Date: 11/01/16 Care time: The patient presented to the Emergency Department on the above date and was hospitalized for further evaluation of their emergent condition. - New Patient This patient is new to me today: No - Critical Care Critical Care patient: No
--- NOTE | 2016-11-03 14:13 | PN ---
Progress Note, Physician History of Present Illness: pulmonary alert,feeling better,less cough - Current Medication List Current Medications: Active Medications Acetaminophen (Tylenol -) 650 mg PO Q6H PRN PRN Reason: FEVER OR PAIN Albuterol Sulfate (Ventolin 0.083% Nebulizer Soln -) 1 amp NEB Q4H PRN PRN Reason: SHORT OF BREATH/WHEEZING Albuterol/Ipratropium (Duoneb -) 1 amp NEB QIDR [facility] Last Admin: 11/03/16 06:15 Dose: 1 amp Amlodipine Besylate (Norvasc -) 10 mg PO DAILY [facility] Last Admin: 11/03/16 09:20 Dose: 10 mg Budesonide/Formoterol Fumarate (Symbicort 80/4.5mcg -) 2 puff IH BID [facility] Last Admin: 11/03/16 09:23 Dose: 2 puff Guaifenesin (Robitussin -) 10 ml PO Q6H PRN PRN Reason: COUGH Last Admin: 11/03/16 09:19 Dose: 10 ml Methylprednisolone Sodium Succinate (Solu-Medrol -) 40 mg IVPB Q6H-IV [facility] Last Admin: 11/03/16 09:19 Dose: 40 mg Nebivolol (Bystolic -) 5 mg PO DAILY [facility] Last Admin: 11/03/16 09:24 Dose: 5 mg Oseltamivir Phosphate (Tamiflu -) 75 mg PO BID [facility] Stop: 11/07/16 23:00 Last Admin: 11/03/16 09:20 Dose: 75 mg - Objective Vital Signs: Vital Signs Temperature 98.7 F 11/03/16 09:02 Pulse Rate 90 11/03/16 09:02 Respiratory Rate 20 11/03/16 09:02 Blood Pressure 131/71 11/03/16 09:02 O2 Sat by Pulse Oximetry (%) 92 L 11/03/16 09:00 Constitutional: Yes: Well Nourished, Calm Eyes: Yes: WNL HENT: Yes: WNL Neck: Yes: WNL Cardiovascular: Yes: Regular Rate and Rhythm, S1, S2 Respiratory: Yes: Wheezes (few wheezes) Gastrointestinal: Yes: Normal Bowel Sounds, Soft Extremities: Yes: WNL Edema: No Labs: CBC, BMP Problem List - Problems (1) Acute on chronic respiratory failure with hypoxemia Code(s): J96.21 - ACUTE AND CHRONIC RESPIRATORY FAILURE WITH HYPOXIA (2) Influenza A Code(s): J10.1 - FLU DUE TO OTH IDENT INFLUENZA VIRUS W OTH RESP MANIFEST (3) Hyponatremia Code(s): E87.1 - HYPO-OSMOLALITY AND HYPONATREMIA (4) COPD exacerbation Code(s): J44.1 - CHRONIC OBSTRUCTIVE PULMONARY DISEASE W (ACUTE) EXACERBATION (5) Lung nodule Code(s): R91.1 - SOLITARY PULMONARY NODULE Assessment/Plan IMP ACUTE ON CHRONIC HYPOXEMIC RESPIRATORY FAILURE ADVANCED COPD WITH ACUTE EXACERBATION INFLUENZA A CHRONIC HYPONATREMIA RUL NODULE STABLE HTN PLAN CONTINUE IV STEROIDS INHALED BRONCHODILATORS TAMIFLU NASAL O2 TO MAINTAIN O2 SAT 90% OR GREATER DR ARANDA Problem List - Problems (1) Acute on chronic respiratory failure with hypoxemia Code(s): J96.21 - ACUTE AND CHRONIC RESPIRATORY FAILURE WITH HYPOXIA (2) Influenza A Code(s): J10.1 - FLU DUE TO OTH IDENT INFLUENZA VIRUS W OTH RESP MANIFEST (3) Hyponatremia Code(s): E87.1 - HYPO-OSMOLALITY AND HYPONATREMIA (4) COPD exacerbation Code(s): J44.1 - CHRONIC OBSTRUCTIVE PULMONARY DISEASE W (ACUTE) EXACERBATION (5) Lung nodule Code(s): R91.1 - SOLITARY PULMONARY NODULE
--- NOTE | 2016-11-03 14:22 | CONSULT ---
Consult Consult Specialty:: Nephrology Referred by:: Dr Torre Reason for Consultation:: Hyponatremia - History of Present Illness History of Present Illness: The pt is a 81 year old female with a significant PMH of COPD, (not on Oxygen at home), and HTN who was referred to the hospital for a productive cough of one week duration and noted to have influenza A infection Asked to evaluate pt for hyponatremia which as per patient has been a chronic problem She denies any c/o N/V or diarrhea On review of meds from home she was on Losartan/HCTZ 100/25 mgs po daily in addition to Amlodipine, Bystolic and Advair She is an ex smoker Has had a stable lung nodule for years 1 glass of white wine a day Denies excessive fluid ingestion - History Source History Provided By: Patient Limitations to Obtaining History: No Limitations - Smoking History Smoking history: Former smoker Have you smoked in the past 12 months: No If you are a former smoker, when did you quit?: 1989 Home Medications - Allergies Allergies/Adverse Reactions: Allergies Allergy/AdvReac Type Severity Reaction Status Date / Time No Known Allergies Allergy Verified 11/01/16 15:46 - Home Medications Home Medications: Ambulatory Orders Amlodipine Besylate [Norvasc -] 10 mg PO DAILY 12/28/13 Losartan/Hydrochlorothiazide [Losartan-Hctz 100-25 mg Tab] 1 each PO DAILY 12/28 Nebivolol HCl [Bystolic] 5 mg PO DAILY 12/28/13 Salmeterol/Fluticasone [Advair 250Mcg/50Mcg -] 1 inh IH BID 12/28/13 Nephrology Consult - Height Height: 5 ft - Weight Weight: 124 lb - BMI Body Mass Index (BMI): 24.2 - Lab Results CBC,BMP: CBC, BMP 11/02/16 08:00 11/02/16 08:00 Anion Gap: Anion Gap Anion Gap 8 (8-16) 11/02/16 08:00 - Imaging Chest X-ray: Report Reviewed EKG: Other (Sinus arrhyhthmia with LAE) - Physical Examination Vital Signs: Vital Signs Temperature 98.7 F 11/03/16 09:02 Pulse Rate 90 11/03/16 09:02 Respiratory Rate 20 11/03/16 09:02 Blood Pressure 131/71 11/03/16 09:02 O2 Sat by Pulse Oximetry (%) 92 L 11/03/16 09:00 Neck: Yes: Supple Cardiovascular: Yes: Murmur, S1, S2 Respiratory: Yes: CTA Bilaterally, Other. No: Rhonchi, Wheezes Gastrointestinal: Yes: Soft. No: Tenderness, Rebound Edema: No Neurological: Yes: Alert, Oriented Assessment/Plan Impression Hyponatremia in pt that was on HCTZ in the form of Hyzaar as an out patient . Can not R/O an underlying SIADH from her COPD Influenza A in pt with COPD resulting in Hypoxemia Ex Smoker with stable lung nodule HTN controlled Plan Continue to hold the HCTZ UA TSH with am labs Fluid restrict to 1 liter daily Regular salt diet for now If serum sodium remains low then to obtain urine for Spot Na as well as a serum /urine for Osmolarity - Will not send at this time since results will be skewed as a result of the recent HCTZ use Thank You Dr Mason
[2016-11-03 19:04] LABS: URINE APPEARANCE CLEAR; URINE BILIRUBIN NEGATIVE (NEGATIVE); URINE BLOOD NEGATIVE (NEGATIVE); URINE COLOR YELLOW; URINE GLUCOSE (UA) NEGATIVE (NEGATIVE); URINE KETONE NEGATIVE (NEGATIVE); URINE LEUK ESTERASE NEGATIVE (NEGATIVE); URINE NITRITE NEGATIVE (NEGATIVE); URINE PROTEIN NEGATIVE (NEGATIVE); URINE UROBILINOGEN NEGATIVE E.U./dl (0.2-1.0)
[2016-11-04] MEDS: methylPREDNISolone NA SUCC 40 MG/1 ML VIAL IVPB SCH ×4 (02:24→22:34)
[2016-11-04] MEDS: ALBUTEROL SO4 2.5/IPRATROPIUM 0.5 INH SOL 3 ML VIAL.NEB. NEB SCH ×3 (06:25→18:04)
[2016-11-04 08:32] LABS: MCH 31.1 pg (25.7-33.7); MCHC 34.3 g/dl (32.0-36.0); MEAN CELL VOLUME 90.6 fl (80-96); PLATELET COUNT 443 K/MM3 (134-434); RDW 13.4 % (11.6-15.6); WHITE BLOOD COUNT 21.6 K/mm3 (4.0-10.0)
[2016-11-04 08:44] LABS: ALBUMIN 3.5 g/dl (3.4-5.0); ANION GAP 8 (8-16); CALCIUM 9.2 mg/dL (8.5-10.1); CO2 32 mmol/L (21-32); GLUCOSE,RANDOM 136 mg/dL (74-106); SGOT/AST 17 U/L (15-37); SGPT/ALT 27 U/L (12-78)
[2016-11-04 08:55] LABS: ALK PHOS 67 U/L (45-117); BILIRUBIN,TOTAL 0.5 mg/dL (0.2-1.0); CREATININE 0.7 mg/dL (0.55-1.02); TOT PROT 7.1 g/dl (6.4-8.2)
[2016-11-04] MEDS ORDERED: PT OWN MED DRAWER 7, Y5N ONE (09:13)
[2016-11-04] MEDS: BUDESONIDE/FORMETEROL FUMARATE 80/4.5 mcg INHALER IH SCH ×2 (09:22→22:34)
[2016-11-04] MEDS: NEBIVOLOL 5 MG TABLET (FP) PO SCH (09:23)
[2016-11-04] MEDS: amLODIPine BESYLATE 10 MG TABLET (FP) PO SCH (09:23)
[2016-11-04] MEDS: OSELTAMIVIR PHOSPHATE 75 MG CAPSULE PO SCH ×2 (09:23→22:35)
[2016-11-04 10:45] LABS: METAMYELOCYTE 8 % (0-2)
--- NOTE | 2016-11-04 15:17 | PN ---
Progress Note (short form) - Note Progress Note: feels improved less cough Vital Signs Period Temp Pulse Resp BP Sys/Huitron Pulse Ox Last 24 Hr 97.9 F-99.0 F 59-87 14-20 131-147/56-75 91-93 cor-rrr lungs decreased bs at bases no wheezes abd soft,nt ext no edema CBC, BMP 11/04/16 07:00 11/04/16 07:00 Microbiology 11/01/16 16:20 Nasopharyngeal Swab Influenza Types A,B Antigen (DAMIÁN) - Final 11/01/16 16:20 Nasopharyngeal Swab - Final Current Medications Acetaminophen (Tylenol -) 650 mg PO Q6H PRN PRN Reason: FEVER OR PAIN Albuterol Sulfate (Ventolin 0.083% Nebulizer Soln -) 1 amp NEB Q4H PRN PRN Reason: SHORT OF BREATH/WHEEZING Albuterol/Ipratropium (Duoneb -) 1 amp NEB QIDR [facility] Last Admin: 11/04/16 11:43 Dose: 1 amp Amlodipine Besylate (Norvasc -) 10 mg PO DAILY [facility] Last Admin: 11/04/16 09:23 Dose: 10 mg Budesonide/Formoterol Fumarate (Symbicort 80/4.5mcg -) 2 puff IH BID [facility] Last Admin: 11/04/16 09:22 Dose: 2 puff Guaifenesin (Robitussin -) 10 ml PO Q6H PRN PRN Reason: COUGH Last Admin: 11/03/16 09:19 Dose: 10 ml Methylprednisolone Sodium Succinate (Solu-Medrol -) 40 mg IVPB Q6H-IV [facility] Last Admin: 11/04/16 15:11 Dose: 40 mg Nebivolol (Bystolic -) 5 mg PO DAILY [facility] Last Admin: 11/04/16 09:23 Dose: 5 mg Oseltamivir Phosphate (Tamiflu -) 75 mg PO BID [facility] Stop: 11/07/16 23:00 Last Admin: 11/04/16 09:23 Dose: 75 mg a/p influenza A copd exacerbation supect leukocytosis secondary to steroids complete 5 days tamiflu prednisone taper per pulmonary please call back if needed
--- NOTE | 2016-11-04 15:36 | PN ---
Progress Note, Physician History of Present Illness: PULMONARY ALERT,FEELING BETTER,LESS COUGH - Current Medication List Current Medications: Active Medications Acetaminophen (Tylenol -) 650 mg PO Q6H PRN PRN Reason: FEVER OR PAIN Albuterol Sulfate (Ventolin 0.083% Nebulizer Soln -) 1 amp NEB Q4H PRN PRN Reason: SHORT OF BREATH/WHEEZING Albuterol/Ipratropium (Duoneb -) 1 amp NEB QIDR [facility] Last Admin: 11/04/16 11:43 Dose: 1 amp Amlodipine Besylate (Norvasc -) 10 mg PO DAILY [facility] Last Admin: 11/04/16 09:23 Dose: 10 mg Budesonide/Formoterol Fumarate (Symbicort 80/4.5mcg -) 2 puff IH BID [facility] Last Admin: 11/04/16 09:22 Dose: 2 puff Guaifenesin (Robitussin -) 10 ml PO Q6H PRN PRN Reason: COUGH Last Admin: 11/03/16 09:19 Dose: 10 ml Methylprednisolone Sodium Succinate (Solu-Medrol -) 40 mg IVPB Q6H-IV [facility] Last Admin: 11/04/16 15:11 Dose: 40 mg Nebivolol (Bystolic -) 5 mg PO DAILY [facility] Last Admin: 11/04/16 09:23 Dose: 5 mg Oseltamivir Phosphate (Tamiflu -) 75 mg PO BID [facility] Stop: 11/07/16 23:00 Last Admin: 11/04/16 09:23 Dose: 75 mg - Objective Vital Signs: Vital Signs Temperature 99.0 F 11/04/16 14:05 Pulse Rate 87 11/04/16 14:05 Respiratory Rate 20 11/04/16 09:20 Blood Pressure 137/56 11/04/16 14:05 O2 Sat by Pulse Oximetry (%) 91 L 11/04/16 11:42 Constitutional: Yes: Well Nourished, Calm Eyes: Yes: WNL HENT: Yes: WNL Neck: Yes: WNL Cardiovascular: Yes: Regular Rate and Rhythm, S1, S2 Respiratory: Yes: Diminished, Wheezes (FEW SCATTERED JONN WHEEZES) Gastrointestinal: Yes: Normal Bowel Sounds, Soft Extremities: Yes: WNL Edema: No Labs: CBC, BMP 11/04/16 07:00 11/04/16 07:00 Problem List - Problems (1) Acute on chronic respiratory failure with hypoxemia Code(s): J96.21 - ACUTE AND CHRONIC RESPIRATORY FAILURE WITH HYPOXIA (2) Influenza A Code(s): J10.1 - FLU DUE TO OTH IDENT INFLUENZA VIRUS W OTH RESP MANIFEST (3) Hyponatremia Code(s): E87.1 - HYPO-OSMOLALITY AND HYPONATREMIA (4) COPD exacerbation Code(s): J44.1 - CHRONIC OBSTRUCTIVE PULMONARY DISEASE W (ACUTE) EXACERBATION (5) Lung nodule Code(s): R91.1 - SOLITARY PULMONARY NODULE Assessment/Plan IMP ACUTE ON CHRONIC HYPOXEMIC RESPIRATORY FAILURE ADVANCED COPD WITH ACUTE EXACERBATION INFLUENZA A HYPONATREMIA IMPROVING RUL NODULE STABLE HTN PLAN STEROID TAPER INHALED BRONCHODILATORS TAMIFLU NASAL O2 TO MAINTAIN O2 SAT 90% OR GREATER DR ARANDA Problem List - Problems (1) Acute on chronic respiratory failure with hypoxemia Code(s): J96.21 - ACUTE AND CHRONIC RESPIRATORY FAILURE WITH HYPOXIA (2) Influenza A Code(s): J10.1 - FLU DUE TO OTH IDENT INFLUENZA VIRUS W OTH RESP MANIFEST (3) Hyponatremia Code(s): E87.1 - HYPO-OSMOLALITY AND HYPONATREMIA (4) COPD exacerbation Code(s): J44.1 - CHRONIC OBSTRUCTIVE PULMONARY DISEASE W (ACUTE) EXACERBATION (5) Lung nodule Code(s): R91.1 - SOLITARY PULMONARY NODULE
--- NOTE | 2016-11-04 16:01 | PN ---
Progress Note, Physician History of Present Illness: Pt seen and examined at bedside. She is awake and alert. She feels better today. - Current Medication List Current Medications: Active Medications Acetaminophen (Tylenol -) 650 mg PO Q6H PRN PRN Reason: FEVER OR PAIN Albuterol Sulfate (Ventolin 0.083% Nebulizer Soln -) 1 amp NEB Q4H PRN PRN Reason: SHORT OF BREATH/WHEEZING Albuterol/Ipratropium (Duoneb -) 1 amp NEB QIDR [facility] Last Admin: 11/04/16 11:43 Dose: 1 amp Amlodipine Besylate (Norvasc -) 10 mg PO DAILY [facility] Last Admin: 11/04/16 09:23 Dose: 10 mg Budesonide/Formoterol Fumarate (Symbicort 80/4.5mcg -) 2 puff IH BID [facility] Last Admin: 11/04/16 09:22 Dose: 2 puff Guaifenesin (Robitussin -) 10 ml PO Q6H PRN PRN Reason: COUGH Last Admin: 11/03/16 09:19 Dose: 10 ml Methylprednisolone Sodium Succinate (Solu-Medrol -) 40 mg IVPB Q12H [facility] Nebivolol (Bystolic -) 5 mg PO DAILY [facility] Last Admin: 11/04/16 09:23 Dose: 5 mg Oseltamivir Phosphate (Tamiflu -) 75 mg PO BID [facility] Stop: 11/07/16 23:00 Last Admin: 11/04/16 09:23 Dose: 75 mg - Objective Vital Signs: Vital Signs Temperature 99.0 F 11/04/16 14:05 Pulse Rate 87 11/04/16 14:05 Respiratory Rate 20 11/04/16 09:20 Blood Pressure 137/56 11/04/16 14:05 O2 Sat by Pulse Oximetry (%) 91 L 11/04/16 11:42 Constitutional: Yes: Calm Eyes: Yes: Conjunctiva Clear HENT: Yes: Atraumatic Neck: Yes: Supple Cardiovascular: Yes: S1, S2 Respiratory: Yes: Cough Gastrointestinal: Yes: Soft Genitourinary: Yes: WNL Musculoskeletal: Yes: WNL Edema: No Neurological: Yes: Oriented Psychiatric: Yes: Oriented Labs: CBC, BMP 11/04/16 07:00 11/04/16 07:00 Assessment/Plan Current Medications Generic Name Dose Route Start Last Admin Trade Name Freq PRN Reason Stop Dose Admin Acetaminophen 650 mg 11/01/16 21:15 Tylenol - PO Q6H PRN FEVER OR PAIN Albuterol Sulfate 1 amp 11/01/16 17:56 Ventolin 0.083% Nebulizer Soln - NEB Q4H PRN SHORT OF BREATH/WHEEZING Albuterol/Ipratropium 1 amp 11/01/16 18:00 11/04/16 11:43 Duoneb - NEB 1 amp QIDR PATRICIA Administration Amlodipine Besylate 10 mg 11/02/16 10:00 11/04/16 09:23 Norvasc - PO 10 mg DAILY PATRICIA Administration Budesonide/Formoterol Fumarate 2 puff 11/02/16 10:00 11/04/16 09:22 Symbicort 80/4.5mcg - IH 2 puff BID PATRICIA Administration Guaifenesin 10 ml 11/02/16 06:36 11/03/16 09:19 Robitussin - PO 10 ml Q6H PRN Administration COUGH Methylprednisolone Sodium Succinate 40 mg 11/04/16 15:45 Solu-Medrol - IVPB Q12H PATRICIA Nebivolol 5 mg 11/02/16 10:00 11/04/16 09:23 Bystolic - PO 5 mg DAILY PATRICIA Administration Oseltamivir Phosphate 75 mg 11/02/16 22:00 11/04/16 09:23 Tamiflu - PO 11/07/16 23:00 75 mg BID PATRICIA Administration Laboratory Tests 11/03/16 11/04/16 18:30 07:00 Sodium 132 L TSH 4.50 H Urine Color Yellow Urine Appearance Clear Urine pH 5.0 Ur Specific [place] 1.020 Urine Protein Negative Urine Glucose (UA) Negative Urine Ketones Negative Urine Blood Negative Urine Nitrite Negative Urine Bilirubin Negative Urine Urobilinogen Negative Ur Leukocyte Esterase Negative Impression 1. hyponatremia 2. HTN 3. influenza 4. COPD Plan - sodium is improving - check osms - pt is on steroids, taper as tolerated - monitor bp - keep thiazide on hold - repeat labs in am - will follow Dr Richter
--- NOTE | 2016-11-04 16:45 | PN ---
Physical Exam: SUBJECTIVE: Patient seen and examined OBJECTIVE: Vital Signs Period Temp Pulse Resp BP Sys/Huitron Pulse Ox Last 24 Hr 97.9 F-99.0 F 59-87 14-20 131-147/56-75 91-93 GENERAL: The patient is awake, alert, and fully oriented, in no acute distress. HEAD: Normal with no signs of trauma. EYES: PERRL, extraocular movements intact, sclera anicteric, conjunctiva clear. ENT: Ears normal, oropharynx clear without exudates, moist mucous membranes. NECK: Trachea midline, full range of motion, supple. LUNGS: Breath sounds equal, clear to auscultation bilaterally, no wheezes, no crackles, no accessory muscle use. HEART: Regular rate and rhythm, S1, S2 without murmur, rub or gallop. ABDOMEN: Soft, nontender, nondistended, normoactive bowel sounds, no guarding, no rebound, no masses appreciated. EXTREMITIES: 2+ pulses, warm, well-perfused, no edema. NEUROLOGICAL: Cranial nerves II through XII grossly intact. Normal speech, gait not observed. PSYCH: Normal mood, normal affect. SKIN: Warm, dry, normal turgor, no rashes or lesions noted Laboratory Results - last 24 hr 11/03/16 11/04/16 11/04/16 18:30 07:00 07:00 WBC 21.6 H D RBC 4.20 Hgb 13.1 Hct 38.0 MCV 90.6 MCHC 34.3 RDW 13.4 Plt Count 443 H MPV 9.0 Neutrophils % 72.0 D Lymphocytes % 7.0 L D Monocytes % 5.0 Band Neutrophils 5.0 D Metamyelocytes 8 H D Myelocytes 3 H Differential Comment Manual diff done Sodium 132 L Potassium 3.9 Chloride 92 L Carbon Dioxide 32 Anion Gap 8 BUN 27 H D Creatinine 0.7 Creat Clearance w eGFR > 60 Random Glucose 136 H Calcium 9.2 Total Bilirubin 0.5 D AST 17 D ALT 27 Alkaline Phosphatase 67 Total Protein 7.1 Albumin 3.5 TSH 4.50 H Urine Color Yellow Urine Appearance Clear Urine pH 5.0 Ur Specific [place] 1.020 Urine Protein Negative Urine Glucose (UA) Negative Urine Ketones Negative Urine Blood Negative Urine Nitrite Negative Urine Bilirubin Negative Urine Urobilinogen Negative Ur Leukocyte Esterase Negative Active Medications Generic Name Dose Route Start Last Admin Trade Name Freq PRN Reason Stop Dose Admin Acetaminophen 650 mg 11/01/16 21:15 Tylenol - PO Q6H PRN FEVER OR PAIN Albuterol Sulfate 1 amp 11/01/16 17:56 Ventolin 0.083% Nebulizer Soln - NEB Q4H PRN SHORT OF BREATH/WHEEZING Albuterol/Ipratropium 1 amp 11/01/16 18:00 11/04/16 11:43 Duoneb - NEB 1 amp QIDR PATRICIA Administration Amlodipine Besylate 10 mg 11/02/16 10:00 11/04/16 09:23 Norvasc - PO 10 mg DAILY PATRICIA Administration Budesonide/Formoterol Fumarate 2 puff 11/02/16 10:00 11/04/16 09:22 Symbicort 80/4.5mcg - IH 2 puff BID PATRICIA Administration Guaifenesin 10 ml 11/02/16 06:36 11/03/16 09:19 Robitussin - PO 10 ml Q6H PRN Administration COUGH Methylprednisolone Sodium Succinate 40 mg 11/04/16 22:00 Solu-Medrol - IVPB Q12H PATRICIA Nebivolol 5 mg 11/02/16 10:00 11/04/16 09:23 Bystolic - PO 5 mg DAILY PATRICIA Administration Oseltamivir Phosphate 75 mg 11/02/16 22:00 11/04/16 09:23 Tamiflu - PO 11/07/16 23:00 75 mg BID PATRICIA Administration ASSESSMENT/PLAN: The patient is a 81 yo F wih a PMhx of HTN and COPD who is being admitted for acute respiratory failure secondary to COPD exacerbation with Influenza A. # Acute Hyponatemia improving, na 132 continue to hold thiazide nephro consult appreciated # Acute Hypoxic Respiratory failure with hx of COPD , on 3 L O2 via NC, nebulizer treatments, solumedrol IV q12h, symbicort Maintain O2 saturation equal or greater to 90, Pulmonary consult appreciated # Influenza A Positive complete Tamiflu 75 mg bid for 5 days Respiratory Isolation, droplet precaution - Tylenol PRN , # HTN continue Norvasc ,losartan,hctz # Newly identified Murmur Echo pending Admit to Med Surg. Visit type - Emergency Visit Emergency Visit: Yes ED Registration Date: 11/01/16 Care time: The patient presented to the Emergency Department on the above date and was hospitalized for further evaluation of their emergent condition. - New Patient This patient is new to me today: Yes Date on this admission: 11/04/16 - Critical Care Critical Care patient: No
--- NOTE | 2016-11-04 17:23 | PN ---
Teaching Attending Note Name of Resident: Graham Peterson ATTENDING PHYSICIAN STATEMENT I saw and evaluated the patient. I reviewed the resident's note and discussed the case with the resident. I agree with the resident's findings and plan as documented. SUBJECTIVE: patient on the bed with mild respiratoty distress, dyspnea on exertion, No fever or chills, patient is 3 Liter oxygen and does not use oxygen at home. OBJECTIVE: Vital Signs Temperature 99.0 F 11/04/16 14:05 Pulse Rate 87 11/04/16 14:05 Respiratory Rate 20 11/04/16 09:20 Blood Pressure 137/56 11/04/16 14:05 O2 Sat by Pulse Oximetry (%) 91 L 11/04/16 11:42 GENERAL: The patient is awake, alert, and fully oriented, in no acute distress. HEAD: Normal with no signs of trauma. EYES: PERRL, extraocular movements intact, sclera anicteric, conjunctiva clear. ENT: Ears normal, oropharynx clear without exudates, moist mucous membranes. NECK: Trachea midline, full range of motion, supple. LUNGS: decreased breath sound s at bases, positive for wheezing left >right , no crackles, mild accessory muscle use. HEART: Regular rate and rhythm, S1, S2 positive , MILAGRO 2/6 no rub or gallop. ABDOMEN: Soft, nontender, nondistended, normoactive bowel sounds, no guarding, no rebound, no masses appreciated. EXTREMITIES: 2+ pulses, warm, well-perfused, no edema. NEUROLOGICAL: Cranial nerves II through XII grossly intact. Normal speech, gait not observed. PSYCH: Normal mood, normal affect. SKIN: Warm, dry, normal turgor, no rashes or lesions noted CBCD WBC 21.6 K/mm3 (4.0-10.0) H D 11/04/16 07:00 RBC 4.20 M/mm3 (3.60-5.2) 11/04/16 07:00 Hgb 13.1 GM/dL (10.7-15.3) 11/04/16 07:00 Hct 38.0 % (32.4-45.2) 11/04/16 07:00 MCV 90.6 fl (80-96) 11/04/16 07:00 MCHC 34.3 g/dl (32.0-36.0) 11/04/16 07:00 RDW 13.4 % (11.6-15.6) 11/04/16 07:00 Plt Count 443 K/MM3 (134-434) H 11/04/16 07:00 MPV 9.0 fl (7.5-11.1) 11/04/16 07:00 CMP Sodium 132 mmol/L (136-145) L 11/04/16 07:00 Potassium 3.9 mmol/L (3.5-5.1) 11/04/16 07:00 Chloride 92 mmol/L (98-107) L 11/04/16 07:00 Carbon Dioxide 32 mmol/L (21-32) 11/04/16 07:00 Anion Gap 8 (8-16) 11/04/16 07:00 BUN 27 mg/dL (7-18) H D 11/04/16 07:00 Creatinine 0.7 mg/dL (0.55-1.02) 11/04/16 07:00 Creat Clearance w eGFR > 60 (>60) 11/04/16 07:00 Random Glucose 136 mg/dL (74-106) H 11/04/16 07:00 Calcium 9.2 mg/dL (8.5-10.1) 11/04/16 07:00 Total Bilirubin 0.5 mg/dL (0.2-1.0) D 11/04/16 07:00 AST 17 U/L (15-37) D 11/04/16 07:00 ALT 27 U/L (12-78) 11/04/16 07:00 Alkaline Phosphatase 67 U/L (45-117) 11/04/16 07:00 Total Protein 7.1 g/dl (6.4-8.2) 11/04/16 07:00 Albumin 3.5 g/dl (3.4-5.0) 11/04/16 07:00 Current Medications Generic Name Dose Route Start Last Admin Trade Name Freq PRN Reason Stop Dose Admin Acetaminophen 650 mg 11/01/16 21:15 Tylenol - PO Q6H PRN FEVER OR PAIN Albuterol Sulfate 1 amp 11/01/16 17:56 Ventolin 0.083% Nebulizer Soln - NEB Q4H PRN SHORT OF BREATH/WHEEZING Albuterol/Ipratropium 1 amp 11/01/16 18:00 11/04/16 11:43 Duoneb - NEB 1 amp QIDR PATRICIA Administration Amlodipine Besylate 10 mg 11/02/16 10:00 11/04/16 09:23 Norvasc - PO 10 mg DAILY PATRICIA Administration Budesonide/Formoterol Fumarate 2 puff 11/02/16 10:00 11/04/16 09:22 Symbicort 80/4.5mcg - IH 2 puff BID PATRICIA Administration Guaifenesin 10 ml 11/02/16 06:36 11/03/16 09:19 Robitussin - PO 10 ml Q6H PRN Administration COUGH Methylprednisolone Sodium Succinate 40 mg 11/04/16 22:00 Solu-Medrol - IVPB Q12H PATRICIA Nebivolol 5 mg 11/02/16 10:00 11/04/16 09:23 Bystolic - PO 5 mg DAILY PATRICIA Administration Oseltamivir Phosphate 75 mg 11/02/16 22:00 11/04/16 09:23 Tamiflu - PO 11/07/16 23:00 75 mg BID PATRICIA Administration Medication Instructions Recorded Amlodipine Besylate [Norvasc -] 10 mg PO DAILY 12/28/13 Losartan/Hydrochlorothiazide 1 each PO DAILY 12/28/13 [Losartan-Hctz 100-25 mg Tab] Nebivolol HCl [Bystolic] 5 mg PO DAILY 12/28/13 Salmeterol/Fluticasone [Advair 1 inh IH BID 12/28/13 250Mcg/50Mcg -] CT of the chest without contrast 03/2016 :Sequential axial images were obtained from the thoracic inlet through the domes of the diaphragm. Since a prior study of 09/12/2015, there has been no significant change in a central right upper lobe mass measuring 2.1 x 2.0 x 1.8 cm. Also reidentified is a tiny 3 mm triangular nodule within the periphery of the right upper lobe. The lung guillen are hyperaerated with increased interstitial markings consistent with COPD. No new pulmonary masses, areas of acute consolidation or pleural effusions have developed. Examination of the mediastinum demonstrates no evidence of mediastinal masses, fluid collections or lymphadenopathy. The heart is not enlarged. Evaluation of the upper abdomen demonstrates no acute abnormalities. Evaluation of the bony structures of the chest demonstrates chronic compression of the T12 vertebral body. No acute abnormalities are identified. IMPRESSION: 1. Stable right upper lobe mass and peripheral nodule since 09/12/2015. 2. COPD , no acute pathology within the chest. Please see above discussion. ASSESSMENT AND PLAN: The patient is a 81 yo F wih a PMhx of HTN and COPD who is being admitted for acute respiratory failure secondary to COPD exacerbation with Influenza A. # Acute Hypoxic Respiratory failure with hx of COPD continues to wheeze, hypoxic off oxygen drops to mid 80's off oxygen ,continue 3 L O2 via NC, nebulizer treatments, solumedrol IV q12h, symbicort Maintain O2 saturation equal or greater to 90, Pulmonary consult appreciated. Will get CT of the chest since last Ct of the chest was last year and had RUL mass 2x2x1.8 mass # Acute Hyponatemia was 126--> 132 today off her Meds Hxtz, losartan , patient is an elderly woman high risk for fall , nephrology consult appreciated. # Influenza A Positive continue Tamiflu , Respiratory Isolation, droplet precaution # HTN continue Norvasc hold hctz due to low sodium # Newly identified Murmur Get Echo Admit to Med Surg.
[2016-11-05] MEDS: ALBUTEROL SO4 2.5/IPRATROPIUM 0.5 INH SOL 3 ML VIAL.NEB. NEB SCH ×5 (00:35→23:29)
[2016-11-05 08:17] LABS: MCH 30.8 pg (25.7-33.7); MCHC 33.3 g/dl (32.0-36.0); MEAN CELL VOLUME 92.3 fl (80-96); MEAN PLT VOLUME 9.2 fl (7.5-11.1); PLATELET COUNT 438 K/MM3 (134-434); RDW 13.5 % (11.6-15.6); WHITE BLOOD COUNT 23.4 K/mm3 (4.0-10.0)
--- NOTE | 2016-11-05 08:42 | PN ---
Teaching Attending Note Name of Resident: Graham Peterson ATTENDING PHYSICIAN STATEMENT I saw and evaluated the patient. I reviewed the resident's note and discussed the case with the resident. I agree with the resident's findings and plan as documented. SUBJECTIVE: Patient is still wheezing and still having dyspnea on exertion. Ct of the chest ordered without contrast. OBJECTIVE: Vital Signs Temperature 97.7 F 11/05/16 08:03 Pulse Rate 74 11/05/16 08:03 Respiratory Rate 18 11/05/16 08:03 Blood Pressure 138/70 11/05/16 08:03 O2 Sat by Pulse Oximetry (%) 92 L 11/04/16 22:00 GENERAL: The patient is awake, alert, and fully oriented, in no acute distress. HEAD: Normal with no signs of trauma. EYES: PERRL, extraocular movements intact, sclera anicteric, conjunctiva clear. ENT: Ears normal, oropharynx clear without exudates, moist mucous membranes. NECK: Trachea midline, full range of motion, supple. LUNGS: decreased BS at the basis , positive for wheezing left side >right , crackles at basis , mild accessory muscle use on exertion. HEART: Regular rate and rhythm, S1, S2 positive, [place] 2/6 ABDOMEN: Soft, nontender, nondistended, normoactive bowel sounds, no guarding, no rebound, no masses appreciated. EXTREMITIES: 2+ pulses, warm, well-perfused, no edema. NEUROLOGICAL: Cranial nerves II through XII grossly intact. Normal speech, gait not observed. PSYCH: Normal mood, normal affect. SKIN: Warm, dry, normal turgor, no rashes or lesions noted CBCD WBC 23.4 K/mm3 (4.0-10.0) H 11/05/16 06:30 RBC 4.43 M/mm3 (3.60-5.2) 11/05/16 06:30 Hgb 13.6 GM/dL (10.7-15.3) 11/05/16 06:30 Hct 40.9 % (32.4-45.2) 11/05/16 06:30 MCV 92.3 fl (80-96) 11/05/16 06:30 MCHC 33.3 g/dl (32.0-36.0) 11/05/16 06:30 RDW 13.5 % (11.6-15.6) 11/05/16 06:30 Plt Count 438 K/MM3 (134-434) H 11/05/16 06:30 MPV 9.2 fl (7.5-11.1) 11/05/16 06:30 CMP Sodium 132 mmol/L (136-145) L 11/04/16 07:00 Potassium 3.9 mmol/L (3.5-5.1) 11/04/16 07:00 Chloride 92 mmol/L (98-107) L 11/04/16 07:00 Carbon Dioxide 32 mmol/L (21-32) 11/04/16 07:00 Anion Gap 8 (8-16) 11/04/16 07:00 BUN 27 mg/dL (7-18) H D 11/04/16 07:00 Creatinine 0.7 mg/dL (0.55-1.02) 11/04/16 07:00 Creat Clearance w eGFR > 60 (>60) 11/04/16 07:00 Random Glucose 136 mg/dL (74-106) H 11/04/16 07:00 Calcium 9.2 mg/dL (8.5-10.1) 11/04/16 07:00 Total Bilirubin 0.5 mg/dL (0.2-1.0) D 11/04/16 07:00 AST 17 U/L (15-37) D 11/04/16 07:00 ALT 27 U/L (12-78) 11/04/16 07:00 Alkaline Phosphatase 67 U/L (45-117) 11/04/16 07:00 Total Protein 7.1 g/dl (6.4-8.2) 11/04/16 07:00 Albumin 3.5 g/dl (3.4-5.0) 11/04/16 07:00 Current Medications Generic Name Dose Route Start Last Admin Trade Name Freq PRN Reason Stop Dose Admin Acetaminophen 650 mg 11/01/16 21:15 Tylenol - PO Q6H PRN FEVER OR PAIN Albuterol Sulfate 1 amp 11/01/16 17:56 Ventolin 0.083% Nebulizer Soln - NEB Q4H PRN SHORT OF BREATH/WHEEZING Albuterol/Ipratropium 1 amp 11/01/16 18:00 11/05/16 11:45 Duoneb - NEB 1 amp QIDR PATRICIA Administration Amlodipine Besylate 10 mg 11/02/16 10:00 11/05/16 10:31 Norvasc - PO 10 mg DAILY PATRICIA Administration Budesonide/Formoterol Fumarate 2 puff 11/02/16 10:00 11/05/16 10:30 Symbicort 80/4.5mcg - IH 2 puff BID PATRICIA Administration Guaifenesin 10 ml 11/02/16 06:36 11/03/16 09:19 Robitussin - PO 10 ml Q6H PRN Administration COUGH Levofloxacin 100 mls @ 100 mls/hr 11/05/16 10:00 11/05/16 10:30 Levaquin 500 Mg Premixed Ivpb - IVPB 100 mls/hr DAILY PATRICIA Administration Methylprednisolone Sodium Succinate 40 mg 11/04/16 22:00 11/05/16 10:30 Solu-Medrol - IVPB 40 mg Q12H PATRICIA Administration Nebivolol 5 mg 11/02/16 10:00 11/05/16 10:31 Bystolic - PO 5 mg DAILY PATRICIA Administration Oseltamivir Phosphate 75 mg 11/02/16 22:00 11/05/16 10:31 Tamiflu - PO 11/07/16 23:00 75 mg BID PATRICIA Administration Microbiology 11/01/16 16:20 Nasopharyngeal Swab Influenza Types A,B Antigen (DAMIÁN) - Final 11/01/16 16:20 Nasopharyngeal Swab - Final CT of the chest without contrast 03/2016 :Sequential axial images were obtained from the thoracic inlet through the domes of the diaphragm. Since a prior study of 09/12/2015, there has been no significant change in a central right upper lobe mass measuring 2.1 x 2.0 x 1.8 cm. Also reidentified is a tiny 3 mm triangular nodule within the periphery of the right upper lobe. The lung guillen are hyperaerated with increased interstitial markings consistent with COPD. No new pulmonary masses, areas of acute consolidation or pleural effusions have developed. Examination of the mediastinum demonstrates no evidence of mediastinal masses, fluid collections or lymphadenopathy. The heart is not enlarged. Evaluation of the upper abdomen demonstrates no acute abnormalities. Evaluation of the bony structures of the chest demonstrates chronic compression of the T12 vertebral body. No acute abnormalities are identified. IMPRESSION: 1. Stable right upper lobe mass and peripheral nodule since 09/12/2015. 2. COPD , no acute pathology within the chest. Please see above discussion. ASSESSMENT AND PLAN: The patient is a 81 yo F wih a PMhx of HTN and COPD who is being admitted for acute respiratory failure secondary to COPD exacerbation with Influenza A. # Acute Hypoxic Respiratory failure due to INFLUENZA A positive on Tamiflu,with hx of COPD , on 3 L O2 via NC, nebulizer treatments, solumedrol IV q12h, symbicort Maintain O2 saturation equal or greater to 90, Pulmonary on the case. #Acute Leukocytosis due to steroids/URI with Influenza will add Levaquin 500mg IV daily # Acute Hyponatemia of 132 , patient is an elderly woman high risk for fall , nephrology consult , will hold Hctz for now and losartan # Influenza A Positive continue Tamiflu , Respiratory Isolation, droplet precaution - Tylenol PRN , Z Pack # HTN continue Norvasc and Bystolic # Newly identified Murmur Echo: positive for Moderate MR, Moderate , EJF 55% Admit to Med Surg.
[2016-11-05 09:35] LABS: CALCIUM 9.3 mg/dL (8.5-10.1); CREATININE 0.8 mg/dL (0.55-1.02)
[2016-11-05] MEDS ORDERED: PT OWN MED DRAWER 7, Y5N ONE (10:24)
[2016-11-05] MEDS: LEVOFLOXACIN 500 MG IVPB 100 ML IVPB SCH (10:30)
[2016-11-05] MEDS: BUDESONIDE/FORMETEROL FUMARATE 80/4.5 mcg INHALER IH SCH ×2 (10:30→21:58)
[2016-11-05] MEDS: methylPREDNISolone NA SUCC 40 MG/1 ML VIAL IVPB SCH ×2 (10:30→21:58)
--- NOTE | 2016-11-05 10:30 | PN ---
Physical Exam: SUBJECTIVE: Patient seen and examined OBJECTIVE: Vital Signs Period Temp Pulse Resp BP Sys/Huitron Pulse Ox Last 24 Hr 97.7 F-99.0 F 64-87 16-20 133-152/52-84 91-92 GENERAL: The patient is awake, alert, and fully oriented, in no acute distress. HEAD: Normal with no signs of trauma. EYES: PERRL, extraocular movements intact, sclera anicteric, conjunctiva clear. ENT: Ears normal, oropharynx clear without exudates, moist mucous membranes. NECK: Trachea midline, full range of motion, supple. LUNGS: Breath sounds equal, clear to auscultation bilaterally, fine crackles on left lung area and mild wheez, no accessory muscle use. HEART: Regular rate and rhythm, S1, S2 without murmur, rub or gallop. ABDOMEN: Soft, nontender, nondistended, normoactive bowel sounds, no guarding, no rebound, no masses appreciated. EXTREMITIES: 2+ pulses, warm, well-perfused, no edema. NEUROLOGICAL: Cranial nerves II through XII grossly intact. Normal speech, gait not observed. PSYCH: Normal mood, normal affect. SKIN: Warm, dry, normal turgor, no rashes or lesions noted Laboratory Results - last 24 hr 11/04/16 11/05/16 11/05/16 07:00 06:30 06:30 WBC 23.4 H RBC 4.43 Hgb 13.6 Hct 40.9 MCV 92.3 MCHC 33.3 RDW 13.5 Plt Count 438 H MPV 9.2 Neutrophils % 72.0 D Y Lymphocytes % 7.0 L D Y Monocytes % 5.0 Band Neutrophils 5.0 D Metamyelocytes 8 H D Myelocytes 3 H Differential Comment Manual diff done Sodium 135 L Potassium 4.0 Chloride 94 L Carbon Dioxide 31 Anion Gap 10 BUN 24 H Creatinine 0.8 Random Glucose 116 H Serum Osmolality 284 Calcium 9.3 Active Medications Generic Name Dose Route Start Last Admin Trade Name Freq PRN Reason Stop Dose Admin Acetaminophen 650 mg 11/01/16 21:15 Tylenol - PO Q6H PRN FEVER OR PAIN Albuterol Sulfate 1 amp 11/01/16 17:56 Ventolin 0.083% Nebulizer Soln - NEB Q4H PRN SHORT OF BREATH/WHEEZING Albuterol/Ipratropium 1 amp 11/01/16 18:00 11/05/16 07:06 Duoneb - NEB 1 amp QIDR PATRICIA Administration Amlodipine Besylate 10 mg 11/02/16 10:00 11/04/16 09:23 Norvasc - PO 10 mg DAILY PATRICIA Administration Budesonide/Formoterol Fumarate 2 puff 11/02/16 10:00 11/04/16 22:34 Symbicort 80/4.5mcg - IH 2 puff BID PATRICIA Administration Guaifenesin 10 ml 11/02/16 06:36 11/03/16 09:19 Robitussin - PO 10 ml Q6H PRN Administration COUGH Levofloxacin 100 mls @ 100 mls/hr 11/05/16 10:00 Levaquin 500 Mg Premixed Ivpb - IVPB DAILY PATRICIA Methylprednisolone Sodium Succinate 40 mg 11/04/16 22:00 11/04/16 22:34 Solu-Medrol - IVPB 40 mg Q12H PATRICIA Administration Nebivolol 5 mg 11/02/16 10:00 11/04/16 09:23 Bystolic - PO 5 mg DAILY PATRICIA Administration Oseltamivir Phosphate 75 mg 11/02/16 22:00 11/04/16 22:35 Tamiflu - PO 11/07/16 23:00 75 mg BID PATRICIA Administration ASSESSMENT/PLAN: The patient is a 81 yo F wih a PMhx of HTN and COPD who is being admitted for acute respiratory failure secondary to COPD exacerbation with Influenza A. # Acute Hyponatemia improving, na 135 continue to hold thiazide # Acute Hypoxic Respiratory failure with hx of COPD , on 3 L O2 via NC, spo2 92, mild crackels present in left basal area nebulizer treatments, solumedrol IV q12h, symbicort Maintain O2 saturation equal or greater to 90, Pulmonary consult appreciated chest physiotherapy spirometry patient got Ct chest done, report pending # Influenza A Positive complete Tamiflu 75 mg bid for 5 days Respiratory Isolation, droplet precaution - Tylenol PRN , # HTN continue Norvasc, nebivolol # Newly identified Murmur Echo reviewed Admit to Med Surg. Visit type - Emergency Visit Emergency Visit: Yes ED Registration Date: 11/01/16 Care time: The patient presented to the Emergency Department on the above date and was hospitalized for further evaluation of their emergent condition. - New Patient This patient is new to me today: No - Critical Care Critical Care patient: No
[2016-11-05] MEDS: OSELTAMIVIR PHOSPHATE 75 MG CAPSULE PO SCH ×2 (10:31→21:58)
[2016-11-05] MEDS: amLODIPine BESYLATE 10 MG TABLET (FP) PO SCH (10:31)
[2016-11-05] MEDS: NEBIVOLOL 5 MG TABLET (FP) PO SCH (10:31)
[2016-11-05 10:54] LABS: METAMYELOCYTE 6 % (0-2)
[2016-11-05 10:55] LABS: PLATELET ESTIMATE ADEQUATE (NORMAL)
--- NOTE | 2016-11-05 12:25 | PN ---
Progress Note (short form) - Note Progress Note: PULMONARY Breathing better today. Occasional nonproductive cough and wheezing. No fevers or chills. Last Vital Signs Temp Pulse Resp BP Pulse Ox 97.7 F 74 18 138/70 92 L 11/05/16 08:03 11/05/16 08:03 11/05/16 08:03 11/05/16 08:03 11/04/16 22:00 Gen: NAD at rest Heart: RRR Lung: scattered basilar rhonchi Abd: soft, nontender Ext: no edema CBC, BMP 11/05/16 06:30 11/05/16 06:30 Active Medications Acetaminophen (Tylenol -) 650 mg PO Q6H PRN PRN Reason: FEVER OR PAIN Albuterol Sulfate (Ventolin 0.083% Nebulizer Soln -) 1 amp NEB Q4H PRN PRN Reason: SHORT OF BREATH/WHEEZING Albuterol/Ipratropium (Duoneb -) 1 amp NEB QIDR [facility] Last Admin: 11/05/16 11:45 Dose: 1 amp Amlodipine Besylate (Norvasc -) 10 mg PO DAILY [facility] Last Admin: 11/05/16 10:31 Dose: 10 mg Budesonide/Formoterol Fumarate (Symbicort 80/4.5mcg -) 2 puff IH BID [facility] Last Admin: 11/05/16 10:30 Dose: 2 puff Guaifenesin (Robitussin -) 10 ml PO Q6H PRN PRN Reason: COUGH Last Admin: 11/03/16 09:19 Dose: 10 ml Levofloxacin (Levaquin 500 Mg Premixed Ivpb -) 100 mls @ 100 mls/hr IVPB DAILY [facility] Last Admin: 11/05/16 10:30 Dose: 100 mls/hr Methylprednisolone Sodium Succinate (Solu-Medrol -) 40 mg IVPB Q12H [facility] Last Admin: 11/05/16 10:30 Dose: 40 mg Nebivolol (Bystolic -) 5 mg PO DAILY [facility] Last Admin: 11/05/16 10:31 Dose: 5 mg Oseltamivir Phosphate (Tamiflu -) 75 mg PO BID [facility] Stop: 11/07/16 23:00 Last Admin: 11/05/16 10:31 Dose: 75 mg A/P Acute on Chronic Hypoxic Respiratory Failure Acute COPD Exacerbation Influenza A r/o Pneumonia Lung Nodule Hyponatremia HTN - continue antibiotics, tamiflu - medrol taper - inhaled bronchodilators - O2 to keep SpO2 >90% - outpt f/u of CT chest - DVT prophylaxis
--- NOTE | 2016-11-05 13:39 | PN ---
Progress Note, Physician History of Present Illness: Pt seen and examined at bedside. She is awake and alert. She still has a cough. - Current Medication List Current Medications: Active Medications Acetaminophen (Tylenol -) 650 mg PO Q6H PRN PRN Reason: FEVER OR PAIN Albuterol Sulfate (Ventolin 0.083% Nebulizer Soln -) 1 amp NEB Q4H PRN PRN Reason: SHORT OF BREATH/WHEEZING Albuterol/Ipratropium (Duoneb -) 1 amp NEB QIDR [facility] Last Admin: 11/05/16 11:45 Dose: 1 amp Amlodipine Besylate (Norvasc -) 10 mg PO DAILY [facility] Last Admin: 11/05/16 10:31 Dose: 10 mg Budesonide/Formoterol Fumarate (Symbicort 80/4.5mcg -) 2 puff IH BID [facility] Last Admin: 11/05/16 10:30 Dose: 2 puff Guaifenesin (Robitussin -) 10 ml PO Q6H PRN PRN Reason: COUGH Last Admin: 11/03/16 09:19 Dose: 10 ml Levofloxacin (Levaquin 500 Mg Premixed Ivpb -) 100 mls @ 100 mls/hr IVPB DAILY [facility] Last Admin: 11/05/16 10:30 Dose: 100 mls/hr Methylprednisolone Sodium Succinate (Solu-Medrol -) 40 mg IVPB Q12H [facility] Last Admin: 11/05/16 10:30 Dose: 40 mg Nebivolol (Bystolic -) 5 mg PO DAILY [facility] Last Admin: 11/05/16 10:31 Dose: 5 mg Oseltamivir Phosphate (Tamiflu -) 75 mg PO BID [facility] Stop: 11/07/16 23:00 Last Admin: 11/05/16 10:31 Dose: 75 mg - Objective Vital Signs: Vital Signs Temperature 97.7 F 11/05/16 08:03 Pulse Rate 74 11/05/16 08:03 Respiratory Rate 18 11/05/16 08:03 Blood Pressure 138/70 11/05/16 08:03 O2 Sat by Pulse Oximetry (%) 93 L 11/05/16 09:00 Constitutional: Yes: Calm Eyes: Yes: Conjunctiva Clear HENT: Yes: Atraumatic Cardiovascular: Yes: S1, S2 Respiratory: Yes: Cough, On Nasal O2 Gastrointestinal: Yes: Soft Genitourinary: Yes: WNL Musculoskeletal: Yes: WNL Extremities: Yes: WNL Edema: No Neurological: Yes: Oriented Psychiatric: Yes: Oriented Labs: CBC, BMP 11/05/16 06:30 11/05/16 06:30 Assessment/Plan Current Medications Generic Name Dose Route Start Last Admin Trade Name Freq PRN Reason Stop Dose Admin Acetaminophen 650 mg 11/01/16 21:15 Tylenol - PO Q6H PRN FEVER OR PAIN Albuterol Sulfate 1 amp 11/01/16 17:56 Ventolin 0.083% Nebulizer Soln - NEB Q4H PRN SHORT OF BREATH/WHEEZING Albuterol/Ipratropium 1 amp 11/01/16 18:00 11/05/16 11:45 Duoneb - NEB 1 amp QIDR PATRICIA Administration Amlodipine Besylate 10 mg 11/02/16 10:00 11/05/16 10:31 Norvasc - PO 10 mg DAILY PATRICIA Administration Budesonide/Formoterol Fumarate 2 puff 11/02/16 10:00 11/05/16 10:30 Symbicort 80/4.5mcg - IH 2 puff BID PATRICIA Administration Guaifenesin 10 ml 11/02/16 06:36 11/03/16 09:19 Robitussin - PO 10 ml Q6H PRN Administration COUGH Levofloxacin 100 mls @ 100 mls/hr 11/05/16 10:00 11/05/16 10:30 Levaquin 500 Mg Premixed Ivpb - IVPB 100 mls/hr DAILY PATRICIA Administration Methylprednisolone Sodium Succinate 40 mg 11/04/16 22:00 11/05/16 10:30 Solu-Medrol - IVPB 40 mg Q12H PATRICIA Administration Nebivolol 5 mg 11/02/16 10:00 11/05/16 10:31 Bystolic - PO 5 mg DAILY PATRICIA Administration Oseltamivir Phosphate 75 mg 11/02/16 22:00 11/05/16 10:31 Tamiflu - PO 11/07/16 23:00 75 mg BID PATRICIA Administration Laboratory Tests 11/05/16 06:30 Serum Osmolality 284 Impression 1. hyponatremia 2. HTN 3. influenza 4. COPD Plan - sodium is stabilizing - blood pressure is stable - hyponatremia likely from thiazide - taper steroids as tolerated - keep thiazide on hold - repeat labs in am - will follow Dr Richter
[2016-11-06] MEDS: ALBUTEROL SO4 2.5/IPRATROPIUM 0.5 INH SOL 3 ML VIAL.NEB. NEB SCH ×3 (07:05→17:55)
[2016-11-06 07:49] LABS: MCH 30.3 pg (25.7-33.7); MEAN CELL VOLUME 91.7 fl (80-96); MEAN PLT VOLUME 9.3 fl (7.5-11.1); PLATELET COUNT 350 K/MM3 (134-434); RDW 13.7 % (11.6-15.6); WHITE BLOOD COUNT 20.1 K/mm3 (4.0-10.0)
[2016-11-06 08:31] LABS: CALCIUM 9.1 mg/dL (8.5-10.1); CREATININE 0.8 mg/dL (0.55-1.02)
[2016-11-06] MEDS ORDERED: PT OWN MED DRAWER 7, Y5N ONE ×2 (09:12→21:44)
[2016-11-06] MEDS: LEVOFLOXACIN 500 MG IVPB 100 ML IVPB SCH (09:20)
[2016-11-06] MEDS: methylPREDNISolone NA SUCC 40 MG/1 ML VIAL IVPB SCH ×2 (09:21→22:09)
[2016-11-06] MEDS: BUDESONIDE/FORMETEROL FUMARATE 80/4.5 mcg INHALER IH SCH ×2 (09:21→22:09)
[2016-11-06] MEDS: NEBIVOLOL 5 MG TABLET (FP) PO SCH (09:21)
[2016-11-06] MEDS: OSELTAMIVIR PHOSPHATE 75 MG CAPSULE PO SCH ×2 (09:22→22:09)
[2016-11-06] MEDS: amLODIPine BESYLATE 10 MG TABLET (FP) PO SCH (09:22)
[2016-11-06 09:51] LABS: METAMYELOCYTE 2 % (0-2)
[2016-11-06] MEDS ORDERED: SODIUM CHLORIDE 1,000 ML IV SCH (12:00)
--- NOTE | 2016-11-06 12:47 | PN ---
Progress Note, Physician History of Present Illness: Pt seen and examined at bedside. She still complains of cough. - Current Medication List Current Medications: Active Medications Acetaminophen (Tylenol -) 650 mg PO Q6H PRN PRN Reason: FEVER OR PAIN Albuterol Sulfate (Ventolin 0.083% Nebulizer Soln -) 1 amp NEB Q4H PRN PRN Reason: SHORT OF BREATH/WHEEZING Albuterol/Ipratropium (Duoneb -) 1 amp NEB QIDR [facility] Last Admin: 11/06/16 11:38 Dose: 1 amp Amlodipine Besylate (Norvasc -) 10 mg PO DAILY [facility] Last Admin: 11/06/16 09:22 Dose: 10 mg Budesonide/Formoterol Fumarate (Symbicort 80/4.5mcg -) 2 puff IH BID [facility] Last Admin: 11/06/16 09:21 Dose: 2 puff Guaifenesin (Robitussin -) 10 ml PO Q6H PRN PRN Reason: COUGH Last Admin: 11/03/16 09:19 Dose: 10 ml Sodium Chloride (Normal Saline -) 1,000 mls @ 75 mls/hr IV ASDIR [facility] Last Admin: 11/06/16 12:43 Dose: 75 mls/hr Methylprednisolone Sodium Succinate (Solu-Medrol -) 40 mg IVPB DAILY [facility] Nebivolol (Bystolic -) 5 mg PO DAILY [facility] Last Admin: 11/06/16 09:21 Dose: 5 mg Oseltamivir Phosphate (Tamiflu -) 75 mg PO BID [facility] Stop: 11/07/16 23:00 Last Admin: 11/06/16 09:22 Dose: 75 mg - Objective Vital Signs: Vital Signs Temperature 98.2 F 11/06/16 08:00 Pulse Rate 92 H 11/06/16 12:28 Respiratory Rate 18 11/06/16 08:00 Blood Pressure 134/67 11/06/16 08:00 O2 Sat by Pulse Oximetry (%) 93 L 11/06/16 12:28 Constitutional: Yes: Calm Eyes: Yes: Conjunctiva Clear HENT: Yes: Atraumatic Neck: Yes: Supple Cardiovascular: Yes: S1, S2 Respiratory: Yes: Wheezes Gastrointestinal: Yes: Soft Genitourinary: Yes: WNL Extremities: Yes: WNL Edema: Yes Edema: LLE: Trace, RLE: Trace Neurological: Yes: Oriented Psychiatric: Yes: Oriented Labs: CBC, BMP 11/06/16 06:45 11/06/16 06:45 Assessment/Plan Current Medications Generic Name Dose Route Start Last Admin Trade Name Freq PRN Reason Stop Dose Admin Acetaminophen 650 mg 11/01/16 21:15 Tylenol - PO Q6H PRN FEVER OR PAIN Albuterol Sulfate 1 amp 11/01/16 17:56 Ventolin 0.083% Nebulizer Soln - NEB Q4H PRN SHORT OF BREATH/WHEEZING Albuterol/Ipratropium 1 amp 11/01/16 18:00 11/06/16 11:38 Duoneb - NEB 1 amp QIDR PATRICIA Administration Amlodipine Besylate 10 mg 11/02/16 10:00 11/06/16 09:22 Norvasc - PO 10 mg DAILY PATRICIA Administration Budesonide/Formoterol Fumarate 2 puff 11/02/16 10:00 11/06/16 09:21 Symbicort 80/4.5mcg - IH 2 puff BID PATRICIA Administration Guaifenesin 10 ml 11/02/16 06:36 11/03/16 09:19 Robitussin - PO 10 ml Q6H PRN Administration COUGH Sodium Chloride 1,000 mls @ 75 mls/hr 11/06/16 12:00 11/06/16 12:43 Normal Saline - IV 75 mls/hr ASDIR PATRICIA Administration Methylprednisolone Sodium Succinate 40 mg 11/07/16 10:00 Solu-Medrol - IVPB DAILY PATRICIA Nebivolol 5 mg 11/02/16 10:00 11/06/16 09:21 Bystolic - PO 5 mg DAILY PATRICIA Administration Oseltamivir Phosphate 75 mg 11/02/16 22:00 11/06/16 09:22 Tamiflu - PO 11/07/16 23:00 75 mg BID PATRICIA Administration Impression 1. hyponatremia 2. HTN 3. influenza 4. COPD Plan - please stop fluids - cont water restriction - steroid with taper, steroids can contribute to hyponatremia - hyponatremia likely from thiazide - would not restart thiazide - repeat labs in am - will follow Dr Richter
--- NOTE | 2016-11-06 12:47 | PN ---
Progress Note, Physician History of Present Illness: PULMONARY ALERT,STILL DYSPNEIC WITH MIN EXERTION,+ COUGH. PT REMAINS HYPOXIC ON RA - Current Medication List Current Medications: Active Medications Acetaminophen (Tylenol -) 650 mg PO Q6H PRN PRN Reason: FEVER OR PAIN Albuterol Sulfate (Ventolin 0.083% Nebulizer Soln -) 1 amp NEB Q4H PRN PRN Reason: SHORT OF BREATH/WHEEZING Albuterol/Ipratropium (Duoneb -) 1 amp NEB QIDR [facility] Last Admin: 11/06/16 11:38 Dose: 1 amp Amlodipine Besylate (Norvasc -) 10 mg PO DAILY [facility] Last Admin: 11/06/16 09:22 Dose: 10 mg Budesonide/Formoterol Fumarate (Symbicort 80/4.5mcg -) 2 puff IH BID [facility] Last Admin: 11/06/16 09:21 Dose: 2 puff Guaifenesin (Robitussin -) 10 ml PO Q6H PRN PRN Reason: COUGH Last Admin: 11/03/16 09:19 Dose: 10 ml Sodium Chloride (Normal Saline -) 1,000 mls @ 75 mls/hr IV ASDIR [facility] Methylprednisolone Sodium Succinate (Solu-Medrol -) 40 mg IVPB DAILY [facility] Nebivolol (Bystolic -) 5 mg PO DAILY [facility] Last Admin: 11/06/16 09:21 Dose: 5 mg Oseltamivir Phosphate (Tamiflu -) 75 mg PO BID [facility] Stop: 11/07/16 23:00 Last Admin: 11/06/16 09:22 Dose: 75 mg - Objective Vital Signs: Vital Signs Temperature 98.2 F 11/06/16 08:00 Pulse Rate 92 H 11/06/16 12:28 Respiratory Rate 18 11/06/16 08:00 Blood Pressure 134/67 11/06/16 08:00 O2 Sat by Pulse Oximetry (%) 93 L 11/06/16 12:28 Constitutional: Yes: Well Nourished, Calm Eyes: Yes: WNL HENT: Yes: WNL Neck: Yes: WNL Cardiovascular: Yes: Regular Rate and Rhythm, S1, S2 Respiratory: Yes: Rhonchi (FEW SCATTERED RHONCHI) Gastrointestinal: Yes: Normal Bowel Sounds, Soft Extremities: Yes: WNL Edema: No Labs: CBC, BMP 11/06/16 06:45 11/06/16 06:45 Problem List - Problems (1) Acute on chronic respiratory failure with hypoxemia Code(s): J96.21 - ACUTE AND CHRONIC RESPIRATORY FAILURE WITH HYPOXIA (2) Influenza A Code(s): J10.1 - FLU DUE TO OTH IDENT INFLUENZA VIRUS W OTH RESP MANIFEST (3) Hyponatremia Code(s): E87.1 - HYPO-OSMOLALITY AND HYPONATREMIA (4) COPD exacerbation Code(s): J44.1 - CHRONIC OBSTRUCTIVE PULMONARY DISEASE W (ACUTE) EXACERBATION (5) Lung nodule Code(s): R91.1 - SOLITARY PULMONARY NODULE Assessment/Plan IMP ACUTE ON CHRONIC HYPOXEMIC RESPIRATORY FAILURE ADVANCED COPD WITH ACUTE EXACERBATION INFLUENZA A HYPONATREMIA IMPROVING RUL NODULE STABLE HTN PLAN STEROIDS INHALED BRONCHODILATORS TAMIFLU NASAL O2 TO MAINTAIN O2 SAT 90% OR GREATER PT REQUIRES HOME O2 DR ARANDA Problem List - Problems (1) Acute on chronic respiratory failure with hypoxemia Code(s): J96.21 - ACUTE AND CHRONIC RESPIRATORY FAILURE WITH HYPOXIA (2) Influenza A Code(s): J10.1 - FLU DUE TO OTH IDENT INFLUENZA VIRUS W OTH RESP MANIFEST (3) Hyponatremia Code(s): E87.1 - HYPO-OSMOLALITY AND HYPONATREMIA (4) COPD exacerbation Code(s): J44.1 - CHRONIC OBSTRUCTIVE PULMONARY DISEASE W (ACUTE) EXACERBATION (5) Lung nodule Code(s): R91.1 - SOLITARY PULMONARY NODULE
--- NOTE | 2016-11-06 16:03 | PN ---
Physical Exam: SUBJECTIVE: Patient seen and examined OBJECTIVE: Vital Signs Period Temp Pulse Resp BP Sys/Huitron Pulse Ox Last 24 Hr 98.2 F-98.5 F 72-92 18-21 134-143/63-67 92-93 GENERAL: The patient is awake, alert, and fully oriented, in no acute distress. HEAD: Normal with no signs of trauma. EYES: PERRL, extraocular movements intact, sclera anicteric, conjunctiva clear. No ptosis. ENT: Ears normal, nares patent, oropharynx clear without exudates, moist mucous membranes. NECK: Trachea midline, full range of motion, supple. LUNGS: Breath sounds equal, clear to auscultation bilaterally, no wheezes, no crackles, no accessory muscle use. HEART: Regular rate and rhythm, S1, S2 without murmur, rub or gallop. ABDOMEN: Soft, nontender, nondistended, normoactive bowel sounds, no guarding, no rebound, no hepatosplenomegaly, no masses. EXTREMITIES: 2+ pulses, warm, well-perfused, no edema. NEUROLOGICAL: Cranial nerves II through XII grossly intact. Normal speech, gait not observed. PSYCH: Normal mood, normal affect. SKIN: Warm, dry, normal turgor, no rashes or lesions noted Laboratory Results - last 24 hr 11/06/16 11/06/16 11/06/16 06:45 06:45 07:00 WBC 20.1 H RBC 4.43 Hgb 13.4 Hct 40.6 MCV 91.7 MCHC 33.0 RDW 13.7 Plt Count 350 D MPV 9.3 Neutrophils % 85.0 H Lymphocytes % 5.0 L D Monocytes % 5.0 Band Neutrophils 2.0 D Metamyelocytes 2 D Differential Comment Manual diff done Plasma Cells 1 Sodium 132 L Potassium 3.7 Chloride 94 L Carbon Dioxide 30 Anion Gap 8 BUN 24 H Creatinine 0.8 Random Glucose 116 H Calcium 9.1 Ur Random Sodium 117 Ur Random Potassium 19.5 Ur Random Chloride 112 Active Medications Generic Name Dose Route Start Last Admin Trade Name Freq PRN Reason Stop Dose Admin Acetaminophen 650 mg 11/01/16 21:15 Tylenol - PO Q6H PRN FEVER OR PAIN Albuterol Sulfate 1 amp 11/01/16 17:56 Ventolin 0.083% Nebulizer Soln - NEB Q4H PRN SHORT OF BREATH/WHEEZING Albuterol/Ipratropium 1 amp 11/01/16 18:00 11/06/16 11:38 Duoneb - NEB 1 amp QIDR PATRICIA Administration Amlodipine Besylate 10 mg 11/02/16 10:00 11/06/16 09:22 Norvasc - PO 10 mg DAILY PATR[facility]IA Administration Budesonide/Formoterol Fumarate 2 puff 11/02/16 10:00 11/06/16 09:21 Symbicort 80/4.5mcg - IH 2 puff BID PATRICIA Administration Guaifenesin 10 ml 11/02/16 06:36 11/03/16 09:19 Robitussin - PO 10 ml Q6H PRN Administration COUGH Methylprednisolone Sodium Succinate 40 mg 11/06/16 22:00 Solu-Medrol - IVPB BID [facility] Nebivolol 5 mg 11/02/16 10:00 11/06/16 09:21 Bystolic - PO 5 mg DAILY PATRICIA Administration Oseltamivir Phosphate 75 mg 11/02/16 22:00 11/06/16 09:22 Tamiflu - PO 11/07/16 23:00 75 mg BID PATRICIA Administration ASSESSMENT/PLAN: The patient is a 81 yo F wih a PMhx of HTN and COPD who is being admitted for acute respiratory failure secondary to COPD exacerbation with Influenza A. # Acute Hyponatemia na 135 continue to hold thiazide nephrology consult appreciated: stop iv fluid, oral fluid restriction # Acute Hypoxic Respiratory failure with hx of COPD , sp02 93% on 2 L on naal canula nebulizer treatments, solumedrol 40m IV q12h, symbicort Maintain O2 saturation equal or greater to 90, Pulmonary consult appreciated chest physiotherapy spirometry spo2 on rest86% without oxygen # Influenza A Positive complete Tamiflu 75 mg bid for 5 days Respiratory Isolation, droplet precaution - Tylenol PRN , # HTN continue Norvasc and nebivolol # Newly identified Murmur Echo reviewed Admit to Med Surg. Visit type - Emergency Visit Emergency Visit: Yes ED Registration Date: 11/01/16 Care time: The patient presented to the Emergency Department on the above date and was hospitalized for further evaluation of their emergent condition. - New Patient This patient is new to me today: No - Critical Care Critical Care patient: No
--- NOTE | 2016-11-06 18:43 | PN ---
Teaching Attending Note Name of Resident: Graham Peterson ATTENDING PHYSICIAN STATEMENT I saw and evaluated the patient. I reviewed the resident's note and discussed the case with the resident. I agree with the resident's findings and plan as documented. SUBJECTIVE: no fever or chills . no abd pain. denies SOB . was hypoxic off oxygen per RN. did not ambulate yet OBJECTIVE: NAD CV : RRR Lungs : no wheezes or crackles heard ext : no edema ASSESSMENT AND PLAN: 81 yo F with a PMhx of HTN and COPD who is being admitted for acute respiratory failure secondary to COPD exacerbation with Influenza A. 1- Acute COPD exacerbation in the setting of Influenza A infection : cont to be hypoxic. but has good air entry and no wheezes - cont steroids . probably can switch to po tomorrow - cont tamiflu. last dose in am - cont breathing tx - order pre-post ambulation SAt O2 2- Acute leukocytosis : probably due to Steroids use. Ct scan with no evidence of pNA . no dysuria or diarrhea or skin infections - dc levaquin . - monitor off ABx 3- Hypovolemic hypotonic hyponatremia : due to HCTZ which is now off - s/p IV hydration . stopped - monitor with free water restriction 4- H/o HTN: cont Meds 5- lung nodules : f/u as out pt 6- Echo reviewed. and TR , Pulm hTN. f/u as out p t Possible dc tomorrow . pT eval . probably will need O2 at dc
[2016-11-07] MEDS: ALBUTEROL SO4 2.5/IPRATROPIUM 0.5 INH SOL 3 ML VIAL.NEB. NEB SCH ×5 (00:10→23:08)
[2016-11-07 08:14] LABS: MCH 30.6 pg (25.7-33.7); MCHC 33.2 g/dl (32.0-36.0); MEAN CELL VOLUME 92.3 fl (80-96); MEAN PLT VOLUME 9.3 fl (7.5-11.1); PLATELET COUNT 295 K/MM3 (134-434); RDW 13.8 % (11.6-15.6); WHITE BLOOD COUNT 15.9 K/mm3 (4.0-10.0)
[2016-11-07 08:58] LABS: METAMYELOCYTE 4 % (0-2)
[2016-11-07 09:12] LABS: CALCIUM 8.9 mg/dL (8.5-10.1); CREATININE 0.7 mg/dL (0.55-1.02)
[2016-11-07] MEDS ORDERED: PT OWN MED DRAWER 7, Y5N ONE ×3 (09:18→20:48)
[2016-11-07] MEDS: methylPREDNISolone NA SUCC 40 MG/1 ML VIAL IVPB SCH ×2 (09:41→21:30)
[2016-11-07] MEDS: amLODIPine BESYLATE 10 MG TABLET (FP) PO SCH (09:41)
[2016-11-07] MEDS: BUDESONIDE/FORMETEROL FUMARATE 80/4.5 mcg INHALER IH SCH ×2 (09:41→21:29)
[2016-11-07] MEDS: OSELTAMIVIR PHOSPHATE 75 MG CAPSULE PO SCH (09:41)
[2016-11-07] MEDS: NEBIVOLOL 5 MG TABLET (FP) PO SCH (09:41)
[2016-11-07] MEDS ORDERED: methylPREDNISolone NA SUCC 40 MG/1 ML VIAL IVPB SCH (10:00)
--- NOTE | 2016-11-07 12:20 | PN ---
Physical Exam: SUBJECTIVE: Patient seen and examined, patient feels better, denies short of breath, chest pain, dizziness. states that she was started on home oxygen couple of years ago but she refused to use it. OBJECTIVE: Vital Signs Period Temp Pulse Resp BP Sys/Huitron Pulse Ox Last 24 Hr 98.0 F-98.4 F 78-92 18-21 133-150/66-90 93-93 GENERAL: The patient is awake, alert, and fully oriented, in no acute distress. HEAD: Normal with no signs of trauma. EYES: PERRL, extraocular movements intact, sclera anicteric, conjunctiva clear. ENT: Ears normal, oropharynx clear without exudates, moist mucous membranes. NECK: Trachea midline, full range of motion, supple. LUNGS: Breath sounds equal, clear to auscultation bilaterally, decreased airentry on both side as compare to yesterday , no accessory muscle use. no wheeze, no crackles HEART: Regular rate and rhythm, S1, S2 without murmur, rub or gallop. ABDOMEN: Soft, nontender, nondistended, normoactive bowel sounds, no guarding, no rebound, no masses appreciated. EXTREMITIES: 2+ pulses, warm, well-perfused, no edema. NEUROLOGICAL: Cranial nerves II through XII grossly intact. Normal speech, gait not observed. PSYCH: Normal mood, normal affect. SKIN: Warm, dry, normal turgor, no rashes or lesions noted Laboratory Results - last 24 hr 11/07/16 11/07/16 06:30 06:30 WBC 15.9 H RBC 4.42 Hgb 13.5 Hct 40.8 MCV 92.3 MCHC 33.2 RDW 13.8 Plt Count 295 MPV 9.3 Neutrophils % 84.0 H Lymphocytes % 1.0 L D Monocytes % 3.0 L Band Neutrophils 6.0 D Metamyelocytes 4 H D Myelocytes 1 D Differential Comment Manual diff done Reactive Lymphocytes 1 D Sodium 133 L Potassium 4.0 Chloride 94 L Carbon Dioxide 26 Anion Gap 13 BUN 24 H Creatinine 0.7 Random Glucose 119 H Calcium 8.9 Active Medications Generic Name Dose Route Start Last Admin Trade Name Freq PRN Reason Stop Dose Admin Acetaminophen 650 mg 11/01/16 21:15 Tylenol - PO Q6H PRN FEVER OR PAIN Albuterol/Ipratropium 1 amp 11/01/16 18:00 11/07/16 07:35 Duoneb - NEB 1 amp QIDR PATRICIA Administration Amlodipine Besylate 10 mg 11/02/16 10:00 11/07/16 09:41 Norvasc - PO 10 mg DAILY PATRICIA Administration Budesonide/Formoterol Fumarate 2 puff 11/02/16 10:00 11/07/16 09:41 Symbicort 80/4.5mcg - IH 2 puff BID PATRICIA Administration Guaifenesin 10 ml 11/02/16 06:36 11/03/16 09:19 Robitussin - PO 10 ml Q6H PRN Administration COUGH Methylprednisolone Sodium Succinate 40 mg 11/06/16 22:00 11/07/16 09:41 Solu-Medrol - IVPB 40 mg BID PATRICIA Administration Nebivolol 5 mg 11/02/16 10:00 11/07/16 09:41 Bystolic - PO 5 mg DAILY PATRICIA Administration ASSESSMENT/PLAN: The patient is a 81 yo F wih a PMhx of HTN and COPD who is being admitted for acute respiratory failure secondary to COPD exacerbation with Influenza A. # Acute Hyponatemia na 133 continue to hold thiazide nephrology consult appreciated: stop iv fluid, oral fluid restriction monitor sodium # Acute Hypoxic Respiratory failure with hx of COPD , sp02 93% on 1.5 L on naal canula nebulizer treatments, solumedrol 40m IV q12h , symbicort Maintain O2 saturation equal or greater to 90, Pulmonary consult appreciated: steroid taper, start po from am chest physiotherapy spirometry spo2 on rest86% without oxygen patient state that she was on home o2 but she refused to use it. # Influenza A Positive Tamiflu 75 mg bid for 5 days course completed # HTN continue Norvasc and nebivolol Admit to Med Surg. Visit type - Emergency Visit Emergency Visit: Yes ED Registration Date: 11/01/16 Care time: The patient presented to the Emergency Department on the above date and was hospitalized for further evaluation of their emergent condition. - New Patient This patient is new to me today: No - Critical Care Critical Care patient: No
--- NOTE | 2016-11-07 12:23 | PN ---
Progress Note (short form) - Note Progress Note: PULMONARY Breathing better today. Occasional nonproductive cough and wheezing but feels well. No fevers or chills. Last Vital Signs Temp Pulse Resp BP Pulse Ox 98.1 F 84 20 150/90 93 L 11/07/16 08:23 11/07/16 08:23 11/07/16 08:23 11/07/16 08:23 11/06/16 21:00 Gen: NAD at rest Heart: RRR Lung: decreased breath sounds at the bases Abd: soft, nontender Ext: no edema CBC, BMP 11/07/16 06:30 11/07/16 06:30 Active Medications Acetaminophen (Tylenol -) 650 mg PO Q6H PRN PRN Reason: FEVER OR PAIN Albuterol/Ipratropium (Duoneb -) 1 amp NEB QIDR [facility] Last Admin: 11/07/16 07:35 Dose: 1 amp Amlodipine Besylate (Norvasc -) 10 mg PO DAILY [facility] Last Admin: 11/07/16 09:41 Dose: 10 mg Budesonide/Formoterol Fumarate (Symbicort 80/4.5mcg -) 2 puff IH BID [facility] Last Admin: 11/07/16 09:41 Dose: 2 puff Guaifenesin (Robitussin -) 10 ml PO Q6H PRN PRN Reason: COUGH Last Admin: 11/03/16 09:19 Dose: 10 ml Methylprednisolone Sodium Succinate (Solu-Medrol -) 40 mg IVPB BID [facility] Last Admin: 11/07/16 09:41 Dose: 40 mg Nebivolol (Bystolic -) 5 mg PO DAILY [facility] Last Admin: 11/07/16 09:41 Dose: 5 mg A/P Acute on Chronic Hypoxic Respiratory Failure Acute COPD Exacerbation Influenza A r/o Pneumonia Lung Nodule Hyponatremia HTN - s/p antibiotics, tamiflu - medrol taper, can change steroids to PO in AM - inhaled bronchodilators - O2 to keep SpO2 >90% - outpt f/u of CT chest - DVT prophylaxis
--- NOTE | 2016-11-07 13:58 | PN ---
Teaching Attending Note Name of Resident: Graham Peterson ATTENDING PHYSICIAN STATEMENT I saw and evaluated the patient. I reviewed the resident's note and discussed the case with the resident. I agree with the resident's findings and plan as documented. SUBJECTIVE: no fever or chills, denies SOB . No cough. did not oxygen all night last night. OBJECTIVE: NAD CV : RRR Lungs: no wheezes or crackles heard. Decresed breath sounds b/l chest guillen Ext : no edema ASSESSMENT AND PLAN: 81 yo F with a PMhx of HTN and COPD who is being admitted for acute respiratory failure secondary to COPD exacerbation with Influenza A. 1- Acute COPD exacerbation in the setting of Influenza A infection : has decrease air entry today - cont steroids . - DC tamiflu - cont breathing tx - requires 3 L of O2 with ambulation and 1.5 L at rest. She stated she will not use it as outpt despite explaining the risk of heart failure and other complications of chronic hypoxia 2- Acute leukocytosis : probably due to Steroids use.improved off abx 3- Hypovolemic hypotonic hyponatremia : due to HCTZ which is now off . BUN is elevated probably due to steroids. - monitor with free water restriction. 4- H/o HTN: cont Meds 5- lung nodules: f/u as out pt 6- Echo with and TR , Pulm hTN. f/u as out pt PT eval. DC tomorrow
--- NOTE | 2016-11-07 14:08 | PN ---
Progress Note, Physician History of Present Illness: Pt seen and examined at bedside. She complains of cough. She denies shortness of breath. - Current Medication List Current Medications: Active Medications Acetaminophen (Tylenol -) 650 mg PO Q6H PRN PRN Reason: FEVER OR PAIN Albuterol/Ipratropium (Duoneb -) 1 amp NEB QIDR [facility] Last Admin: 11/07/16 07:35 Dose: 1 amp Amlodipine Besylate (Norvasc -) 10 mg PO DAILY [facility] Last Admin: 11/07/16 09:41 Dose: 10 mg Budesonide/Formoterol Fumarate (Symbicort 80/4.5mcg -) 2 puff IH BID [facility] Last Admin: 11/07/16 09:41 Dose: 2 puff Guaifenesin (Robitussin -) 10 ml PO Q6H PRN PRN Reason: COUGH Last Admin: 11/03/16 09:19 Dose: 10 ml Methylprednisolone Sodium Succinate (Solu-Medrol -) 40 mg IVPB BID [facility] Last Admin: 11/07/16 09:41 Dose: 40 mg Nebivolol (Bystolic -) 5 mg PO DAILY [facility] Last Admin: 11/07/16 09:41 Dose: 5 mg - Objective Vital Signs: Vital Signs Temperature 98.1 F 11/07/16 08:23 Pulse Rate 84 11/07/16 08:23 Respiratory Rate 22 11/07/16 09:00 Blood Pressure 150/90 11/07/16 08:23 O2 Sat by Pulse Oximetry (%) 92 L 11/07/16 09:00 Constitutional: Yes: Calm Eyes: Yes: Conjunctiva Clear HENT: Yes: Atraumatic Neck: Yes: Supple Cardiovascular: Yes: S1, S2 Respiratory: Yes: On Nasal O2 Gastrointestinal: Yes: Soft Genitourinary: Yes: WNL Musculoskeletal: Yes: WNL Edema: No Neurological: Yes: Oriented Psychiatric: Yes: Oriented Labs: CBC, BMP 11/07/16 06:30 11/07/16 06:30 Assessment/Plan Current Medications Generic Name Dose Route Start Last Admin Trade Name Freq PRN Reason Stop Dose Admin Acetaminophen 650 mg 11/01/16 21:15 Tylenol - PO Q6H PRN FEVER OR PAIN Albuterol/Ipratropium 1 amp 11/01/16 18:00 11/07/16 07:35 Duoneb - NEB 1 amp QIDR PATRICIA Administration Amlodipine Besylate 10 mg 11/02/16 10:00 11/07/16 09:41 Norvasc - PO 10 mg DAILY PATRICIA Administration Budesonide/Formoterol Fumarate 2 puff 11/02/16 10:00 11/07/16 09:41 Symbicort 80/4.5mcg - IH 2 puff BID PATRICIA Administration Guaifenesin 10 ml 11/02/16 06:36 11/03/16 09:19 Robitussin - PO 10 ml Q6H PRN Administration COUGH Methylprednisolone Sodium Succinate 40 mg 11/06/16 22:00 11/07/16 09:41 Solu-Medrol - IVPB 40 mg BID PATRICIA Administration Nebivolol 5 mg 11/02/16 10:00 11/07/16 09:41 Bystolic - PO 5 mg DAILY PATRICIA Administration Impression 1. hyponatremia 2. HTN 3. influenza 4. COPD Plan - sodium is slowly improving - repeat labs in am - taper steroids as tolerated - hyponatremia likely from thiazide - repeat labs in am - monitor BP - will follow Dr Richter
[2016-11-08] MEDS: ALBUTEROL SO4 2.5/IPRATROPIUM 0.5 INH SOL 3 ML VIAL.NEB. NEB SCH ×2 (06:21→11:50)
[2016-11-08 06:48] LABS: MCH 30.7 pg (25.7-33.7); MCHC 33.4 g/dl (32.0-36.0); MEAN CELL VOLUME 91.9 fl (80-96); MEAN PLT VOLUME 9.2 fl (7.5-11.1); PLATELET COUNT 267 K/MM3 (134-434); RDW 13.7 % (11.6-15.6); WHITE BLOOD COUNT 14.2 K/mm3 (4.0-10.0)
--- NOTE | 2016-11-08 08:21 | DS ---
Physical Exam: SUBJECTIVE: Patient seen and examined OBJECTIVE: Vital Signs Period Temp Pulse Resp BP Sys/Huitron Pulse Ox Last 24 Hr 98.0 F-98.4 F 80-84 20-22 101-158/61-90 92-92 PHYSICAL EXAM GENERAL: The patient is awake, alert, and fully oriented, in no acute distress. HEAD: Normal with no signs of trauma. EYES: PERRL, extraocular movements intact, sclera anicteric, conjunctiva clear. ENT: Ears normal, nares patent, oropharynx clear without exudates, moist mucous membranes. NECK: Trachea midline, full range of motion, supple. LUNGS: Breath sounds equal, clear to auscultation bilaterally, no wheezes, no crackles, no accessory muscle use. HEART: Regular rate and rhythm, S1, S2 without murmur, rub or gallop. ABDOMEN: Soft, nontender, nondistended, normoactive bowel sounds, no guarding, no rebound, no hepatosplenomegaly, no masses. EXTREMITIES: 2+ pulses, warm, well-perfused, no edema. NEUROLOGICAL: Cranial nerves II through XII grossly intact. Normal speech, gait not observed. PSYCH: Normal mood, normal affect. SKIN: Warm, dry, normal turgor, no rashes or lesions noted. LABS Laboratory Results - last 24 hr 11/07/16 11/07/16 11/08/16 06:30 06:30 05:45 WBC 14.2 H RBC 4.46 Hgb 13.7 Hct 41.0 MCV 91.9 MCHC 33.4 RDW 13.7 Plt Count 267 MPV 9.2 Neutrophils % 84.0 H Y Lymphocytes % 1.0 L D Y Monocytes % 3.0 L Band Neutrophils 6.0 D Metamyelocytes 4 H D Myelocytes 1 D Differential Comment Manual diff done Reactive Lymphocytes 1 D Sodium 133 L Potassium 4.0 Chloride 94 L Carbon Dioxide 26 Anion Gap 13 BUN 24 H Creatinine 0.7 Random Glucose 119 H Calcium 8.9 HOSPITAL COURSE: Date of Admission:11/01/16 Date of Discharge: 11/08/16 Discharge Summary Reason For Visit: INFLUENZA A; HYPOXIA Current Active Problems Acute on chronic respiratory failure with hypoxemia (Acute) COPD exacerbation (Acute) Hyponatremia (Acute) Hypoxia (Acute) Influenza A (Acute) Lung nodule (Chronic) Condition: Stable - Instructions Diet, Activity, Other Instructions: Follow up with your pcp follow up with Dr morris use symbicort inhaler as prescribed Drink free water intake less than 1L per day use nebulizer as prescribed use home oxygen take fall precautions we had stopped your thiazide due to hyponatremia For blood pressure take Norvasc 10mg daily and nebivolol 5mg po daily. home oxygen will be arranged by block and case maker/ medical social worker if you develop chest pain, shortness of breath, diziness, lightheadedness contact doctor or come to hospital immediately. Take the prednisone as prescribed in a tapered dose. Referrals: Edgar Morris MD [Staff Physician] - 1 Week Disposition: HOME - Home Medications Comprehensive Discharge Medication List: Ambulatory Orders Amlodipine Besylate [Norvasc -] 10 mg PO DAILY 12/28/13 Nebivolol HCl [Bystolic] 5 mg PO DAILY 12/28/13 Salmeterol/Fluticasone [Advair 250Mcg/50Mcg -] 1 inh IH BID 12/28/13 Albuterol 2.5/Ipratropium 0.5 [Duoneb -] 1 amp NEB QIDR amp 11/08/16 Guaifenesin [Robitussin -] 10 ml PO Q6H PRN #0 cup 11/08/16 Prednisone [Deltasone -] See Taper PO BID #1 tablet 11/08/16
[2016-11-08 08:29] VITALS: BP 159/75; TEMP 98
[2016-11-08] MEDS ORDERED: PT OWN MED DRAWER 7, Y5N ONE (09:26)
[2016-11-08 09:27] LABS: METAMYELOCYTE 2 % (0-2)
[2016-11-08] MEDS: amLODIPine BESYLATE 10 MG TABLET (FP) PO SCH (09:56)
[2016-11-08] MEDS: NEBIVOLOL 5 MG TABLET (FP) PO SCH (09:56)
[2016-11-08] MEDS: BUDESONIDE/FORMETEROL FUMARATE 80/4.5 mcg INHALER IH SCH (09:57)
[2016-11-08] MEDS ORDERED: predniSONE 20 MG TABLET (UD) PO SCH (10:00)
[2016-11-08 11:50] VITALS: PULSE 72
--- NOTE | 2016-11-08 12:25 | PN ---
Teaching Attending Note Name of Resident: Maicol Marquez ATTENDING PHYSICIAN STATEMENT I saw and evaluated the patient. I reviewed the resident's note and discussed the case with the resident. I agree with the resident's findings and plan as documented. SUBJECTIVE: no fever or chills, no SOB , no events over night . OBJECTIVE: NAD CV: RRR Lungs: no wheezes or crackles heard. Improved air entry in both lung guillen Ext: no edema ASSESSMENT AND PLAN: 81 yo F with a PMhx of HTN and COPD who is being admitted for acute respiratory failure secondary to COPD exacerbation with Influenza A. 1- Acute COPD exacerbation in the setting of Influenza A infection : improved - steroids taper at dc . finished tamiflu course . cont home inhalers . requires oxygen which was arranged (3 L of O2 with ambulation and 1.5 L at rest ) , but pt cont to refuse 2- Acute leukocytosis : due to Steroids use.improved off abx 3- Hypovolemic hypotonic hyponatremia : improved. mnot to resume diuretics after dc 4- H/o HTN: cont Meds except diuretics 5- lung nodules: f/u as out pt 6- Echo with and TR , Pulm hTN. f/u as out pt above findings were discussed with pt and her daughter. pt refused rehab placement and wants to go home. daughter updated , she will take mom to her house over weekend . Dc home with VNS and PT
--- NOTE | 2016-11-08 19:24 | DS ---
Physical Exam: SUBJECTIVE: Patient seen and examined OBJECTIVE: Vital Signs Period Temp Pulse Resp BP Sys/Huitron Pulse Ox Last 24 Hr 98 F-98.0 F 72-84 20-22 101-159/61-75 92-93 PHYSICAL EXAM GENERAL: The patient is awake, alert, and fully oriented, in no acute distress. HEAD: Normal with no signs of trauma. EYES: extraocular movements intact, sclera anicteric, conjunctiva clear. ENT: Ears normal, nares patent, oropharynx clear without exudates, moist mucous membranes. NECK: Trachea midline, full range of motion, supple. LUNGS: Breath sounds equal, clear to auscultation bilaterally, no wheezes, no crackles, no accessory muscle use. on nasal cannula HEART: Regular rate and rhythm, S1, S2,soft systolic murmur ABDOMEN: Soft, nontender, nondistended, normoactive bowel sounds, EXTREMITIES: 2+ pulses, warm, well-perfused, no edema. NEUROLOGICAL: Normal speech, gait not observed. PSYCH: Normal mood, normal affect. SKIN: Warm, dry, normal turgor, no rashes or lesions noted. LABS Laboratory Results - last 24 hr 11/08/16 05:45 WBC 14.2 H RBC 4.46 Hgb 13.7 Hct 41.0 MCV 91.9 MCHC 33.4 RDW 13.7 Plt Count 267 MPV 9.2 Neutrophils % 90.0 H Lymphocytes % Y Monocytes % 1.0 L Band Neutrophils 5.0 Metamyelocytes 2 D Myelocytes 1 Differential Comment Manual diff done Reactive Lymphocytes 1 Microbiology 11/06/16 09:30 Sputum - Expectorated Sputum Culture - Final NORMAL RESPIRATORY JORY 11/01/16 16:20 Nasopharyngeal Swab Influenza Types A,B Antigen (DAMIÁN) - Final 11/01/16 16:20 Nasopharyngeal Swab - Final IMAGING 11/[address] without contrast: new small 0.3cm left upper lobe nodule since prior exam stable right upper lobe mass and peripheral nodules since Sep 12, 2015. stable chronic compression deformity T12 stable small subpleural nodule 0.3cm anteriorly in right upper lobe, unchanged. emphysematous changes in lungs with stable appearence of right upper lobe perihilar nodular mass 2.0x1.7sm with small adjacent nodule 0.23cm 11/04 Echocardiogram to evaluate new heart murmur: LV function was normal. mild- moderate mitral annular calcification, mild-moderate tricuspid regurgitation, elevated right ventricular systolic pressure 50-60 with moderate pulmonary hypertension. mild-moderate valvular aortic stenosis, mild aortic valve thickening. aortic mean pressure gradient - 17mmhg without aortic regurgitation. HOSPITAL COURSE: Date of Admission:11/01/16 Date of Discharge: 11/08/16 87 yr old woman with COPD(not on home oxygen), HTN, hx of smoking who presented with productive cough, shortness of breath, post-nasal drip and weakness referred by PCP for decrease o2 saturation in office. In the ED she was found to have a new murmur, be hypoxic, and have hyponatremia(126mmol/L). she was admitted for acute COPD exacerbation in the setting of a viral illness. She was found to have influenza type A on nasopharyngeal swab. Influenza was treated with 7-day course of tamiflu 75mg po bid. COPD exacerbation improved with solumedrol 40mg IV, symbicort 80 2 puffs bid, and duonebs. She continued to require oxygen, 3L via nasal cannula with ambulation and 1.5L at rest to maintain oxygen saturation above 90%. She had previously been prescribed home oxygen by Dr. Morris but she declined the offer to use home oxygen. Implications discussed of not using home oxygen, she stated understanding. Home oxygen was arranged through [facility] ([facility] [phone]) Hyponatermia was in the setting of HCTZ use as part of Hyzaar. Hyzaar was discontinued. Hypertension was controlled with Norvasc 10mg daily and Bystolic 5mg daily. Hyponatramia improved(133mmol/L) with oral fluid restriction and patient was advised to stop HCTZ and maintain Norvasc and Bystolic for blood pressure control. Echocardiogram ordered to evaluate new heart murmur revealed elevated right ventricular systolic pressure with moderate pulmonary hypertension. With improved respiration status and normalizing hyponatremia, patient was stable and ready for discharge. Patient will require further outpatient follow-up and outpatient review of new pulmonary nodules on CT, chronic hyponatremia, COPD with home oxygen requirement , blood pressure control on new medication regimen and newly diagnosed pulmonary hypertension as seen on echo. She was discharged with 12 day prednisone taper, bystolic, norvasc, spiriva, proair respiclick and advair. VNSW was arranged as patient lives in alone and is need of assistance. Consults: Pulmonology: Dr. Morris Nephrology: Dr. Mason Minutes to complete discharge: 50 Discharge Summary Reason For Visit: INFLUENZA A; HYPOXIA Condition: Improved - Instructions Diet, Activity, Other Instructions: Follow up with your pcp follow up with Dr morris use advair inhaler as prescribed Drink free water intake less than 1L per day use nebulizer as prescribed use home oxygen take fall precautions we had stopped your thiazide due to hyponatremia. do not use it again For blood pressure take Norvasc 10mg daily and nebivolol 5mg po daily. home oxygen will be arranged by correctional counselor/case manager/ social media specialist if you develop chest pain, shortness of breath, diziness, lightheadedness contact doctor or come to hospital immediately. Take the prednisone as prescribed in a tapered dose. spiriva is a new medication prescribed . use albuterol as needed please pick your medicines at [facility] today Lung nodules need to be followed by your finisher wallboard and plasterboard Aslo , heart valvular problems need to be followed by your social insurance administrator . Referrals: Edgar Morris MD [Staff Physician] - 1 Week Disposition: VNS/HOME HEALTH CARE - Home Medications Comprehensive Discharge Medication List: Ambulatory Orders Amlodipine Besylate [Norvasc -] 10 mg PO DAILY 12/28/13 Nebivolol HCl [Bystolic] 5 mg PO DAILY 12/28/13 Salmeterol/Fluticasone [Advair 250Mcg/50Mcg -] 1 inh IH BID 12/28/13 Albuterol Sulfate [Proair Respiclick] 90 mcg IH Q6H PRN #1 [email or web address] 11/08/16 Guaifenesin [Robitussin -] 10 ml PO Q6H PRN #0 cup 11/08/16 Prednisone 10 mg PO DAILY #25 tablet 11/08/16 Tiotropium Morton [Spiriva] 1 inh PO DAILY #1 inhaler 11/08/16 This patient is new to me today: Yes Date on this admission: 11/08/16 Emergency Visit: No Critical Care patient: No - Discharge Referral Referred to [facility] Med P.C[facility] No
== END 2016-11-08 14:12 | disposition home health service (06) | DRG 193 ==
LOC: JER 15:29 → JERBED 18:25 → J6S 23:06
PROVIDERS: ADMIT Internal Medicine; ATTEND Internal Medicine
PROC: 3E0F7GC Introduction of Other Therapeutic Substance into Respiratory Tract, Via Natural or Artificial Opening (ICD-10-PCS; principal; 2016-11-01)
DX: J10.1 Influenza due to other identified influenza virus with other respiratory manifestations (principal); J96.21 Acute and chronic respiratory failure with hypoxia; J44.1 Chronic obstructive pulmonary disease with (acute) exacerbation; E87.1 Hypo-osmolality and hyponatremia; R09.02 Hypoxemia; I10 Essential (primary) hypertension; R91.1 Solitary pulmonary nodule; R01.1 Cardiac murmur, unspecified; K59.09 Other constipation; Z87.891 Personal history of nicotine dependence
CPT/HCPCS: 36415; 71010-TC; 71250-TC; 80048; 80053; 81003; 82436; 82803; 83930; 84133; 84300; 84443; 85025; 85027; 87070; 87205; 87804; 93005; 93010; 93306-TC; 94010; 94640; 94761; 97116-GP; 97162-PG; 99285-25; G9019

== ENCOUNTER 2017-11-07 13:05 | Inpatient (IN) | payer OTHER ==
[2017-11-07] MEDS ORDERED: ALBUTEROL SO4 2.5/IPRATROPIUM 0.5 INH SOL 3 ML VIAL.NEB. NEB ONE ×5 (14:17→20:09)
--- NOTE | 2017-11-07 14:17 | PDOC ---
History of Present Illness - General History Source: Patient, Family, Old Records Exam Limitations: No Limitations - History of Present Illness Initial Comments: 11/07/17 14:24 The patient is an 82 year old female with a past medical history of COPD and HTN brought into the Emergency Department by daughter with shortness of breath and cold symptoms for 3 days. The patient states that her breath has progressively worsened the last 3 days and that her oxygen saturation this morning was 54%. She states that the humidity has made it more difficult for her to breath. She denies chest pain but endorses intermittent chest heaviness on exertion. She states that at home she is supposed to be on 3L of oxygen [place] but admits she only uses oxygen from approximately 12 hours daily. The patient states she was last admitted to the hospital 1 year ago after presenting with similar symptoms. Field Reviewer: Dr. Morris PMD: Dr. Au 11/07/17 14:47 <Mervin Foster - Last Filed: 11/07/17 14:47> - History of Present Illness Initial Comments: 11/07/17 15:06 Physical exam: Alert, cheerful and cooperative, mildly dyspneic, mildly tachypneic, use of abdominal muscles for breathing 99.6, blood pressure and pulse normal, respiratory rate 28 and mildly labored, O2 sat 75-80 on room air, improving to 88-90 on 3 L nasal cannula HEENT clear Neck supple without bruit mass or nodes Lungs with decreased breath sounds over the entire lung guillen bilaterally. No wheezes rales or rhonchi. Dyspnea and tachypnea as noted above. CV S1 and S2 normal, systolic ejection murmur, pulses full, no JVD or edema. No bruits Abdomen benign Neurologic intact Extremities no CCE Skin clear, no rash, adequate turgor and wet mucous membranes Impression: Acute exacerbation of chronic bronchitis, COPD. Rule out pneumonia. Rule out superimposed CHF Plan: Labs x-ray and EKG. Admit for further intravenous and nebulizer therapy. <Ramon Cleveland - Last Filed: 11/07/17 16:35> - General Chief Complaint: Shortness of Breath Stated Complaint: SHORT OF BREATH Time Seen by Provider: 11/07/17 13:33 Past History <Mervin Foster - Last Filed: 11/07/17 14:47> - Past Medical History Anemia: No Asthma: No Cancer: No Cardiac Disorders: No CVA: No COPD: Yes CHF: No Dementia: No Diabetes: No GI Disorders: No Disorders: No HTN: Yes Hypercholesterolemia: No Liver Disease: No Seizures: No Thyroid Disease: No - Surgical History Abdominal Surgery: No Appendectomy: Yes (age 14) Cardiac Surgery: No Cholecystectomy: No Lung Surgery: No Neurologic Surgery: No Orthopedic Surgery: No - Suicide/Smoking/Psychosocial Hx Smoking History: Former smoker Have you smoked in the past 12 months: No If you are a former smoker, when did you quit?: 1989 Information on smoking cessation initiated: No Hx Alcohol Use: No Drug/Substance Use Hx: No Substance Use Type: None Hx Substance Use Treatment: No <Ramon Cleveland - Last Filed: 11/07/17 16:35> - Past Medical History Allergies/Adverse Reactions: Allergies Allergy/AdvReac Type Severity Reaction Status Date / Time No Known Allergies Allergy Verified 11/07/17 13:25 Home Medications: Ambulatory Orders Amlodipine Besylate [Norvasc -] 10 mg PO DAILY 12/28/13 Nebivolol HCl [Bystolic] 5 mg PO BID 12/28/13 Salmeterol/Fluticasone [Advair 250Mcg/50Mcg -] 1 inh IH BID 12/28/13 Albuterol Sulfate [Proair Respiclick] 90 mcg IH Q6H PRN #1 [email or web address] 11/08/16 Review of Systems - Review of Systems Able to Perform ROS?: Yes Comments:: 11/07/17 14:24 CONSTITUTIONAL: Absent: fever, no chills, no fatigue EYES: Absent: visual changes ENT: Absent: ear pain, no sore throat CARDIOVASCULAR: (+) Chest heaviness Absent: No palpitations RESPIRATORY: (+) SOB, Cough GI: Absent: abdominal pain, no nausea, no vomiting, no constipation, no diarrhea GENITOURINARY: Absent: dysuria, no frequency, no hematuria MUSCULOSKELETAL: Absent: back pain, no arthralgia, no myalgia SKIN: Absent: rash <Mervin Foster - Last Filed: 11/07/17 14:47> *Physical Exam - Vital Signs Last Vital Signs Temp Pulse Resp BP Pulse Ox 99.6 F 78 30 H 151/72 89 L 11/07/17 13:22 11/07/17 13:22 11/07/17 13:22 11/07/17 13:22 11/07/17 13:22 - Physical Exam Comments: 11/07/17 14:24 GENERAL: Well-appearing, well-nourished. No apparent distress. HEENT: Normocephalic, atraumatic. PERRL, EOM intact. CARDIOVASCULAR: Normal S1, S2. Regular rate and rhythm. PULMONARY: (+) Decreased breath sound bilaterally, expiratory wheezes appreciated, no rales , no abnormal breath sounds. ABDOMEN: Soft, non-distended, non-tender. EXTREMITIES: Normal ROM in all four extremities. No gross deformities. SKIN: Warm, dry. No rash NEUROLOGICAL: No focal neurological deficits. <Mervin Foster - Last Filed: 11/07/17 14:47> - Vital Signs Last Vital Signs Temp Pulse Resp BP Pulse Ox 99.6 F 78 30 H 151/72 89 L 11/07/17 13:22 11/07/17 13:22 11/07/17 13:22 11/07/17 13:22 11/07/17 13:22 <Ramon Cleveland - Last Filed: 11/07/17 16:35> ED Treatment Course - LABORATORY CBC & Chemistry Diagram: 11/07/17 14:45 11/07/17 14:50 <Ramon Cleveland - Last Filed: 11/07/17 16:35> Medical Decision Making - Medical Decision Making 11/07/17 16:30 EKG: Normal sinus rhythm with mild sinus arrhythmia 69/m. Normal axes and intervals. No ST-T wave changes. Normal EKG. Chest x-ray shows mild diffuse bronchoalveolar changes but no distinct infiltrate suggestive of pneumonia. 11/07/17 16:34 White blood count of 2.0, but otherwise remainder of CBC and chemistries are without significant abnormalities Patient is much improved, both subjectively and objectively, after nebulizer treatments and steroids. Dr. Morris, her weight loss counselor, was informed by phone and he will see the patient in consultation. Patient is admitted to hospitalist for further monitoring and treatment. Clinically and hemodynamically stable. <Ramon Cleveland - Last Filed: 11/07/17 16:35> *DC/Admit/Observation/Transfer - Attestations Scribe Attestion: 11/07/17 14:25 Documentation prepared by Mervin Foster, acting as medical care administrator for Ramon Cleveland MD. <Mervin Foster - Last Filed: 11/07/17 14:47> - Discharge Dispostion Admit: Yes <Ramon Cleveland - Last Filed: 11/07/17 16:35> Diagnosis at time of Disposition: COPD exacerbation - Discharge Dispostion Condition at time of disposition: Guarded - Referrals Referrals: Ольга Rico MD [Primary Care Provider] - - Patient Instructions - Post Discharge Activity
[2017-11-07] MEDS ORDERED: methylPREDNISolone NA SUCC 125 MG/2 ML VIAL IVPB ONE (15:03)
[2017-11-07] MEDS ORDERED: CEFTRIAXONE 1 GM in DEXTROSE 5%-WATER - 50 ML IVPB ONE (15:04)
[2017-11-07] MEDS ORDERED: AZITHROMYCIN IVPB 500 MG in DEXTROSE 5%-WATER - 250 ML IVPB ONE (15:04)
[2017-11-07 15:14] LABS: HEMATOCRIT 36.8 % (32.4-45.2); MCH 30.3 pg (25.7-33.7); MCHC 32.7 g/dl (32.0-36.0); MEAN CELL VOLUME 92.5 fl (80-96); MEAN PLT VOLUME 11.4 fl (7.5-11.1); PLATELET COUNT 233 K/MM3 (134-434); RBC 3.98 M/mm3 (3.60-5.2); RDW 13.4 % (11.6-15.6)
[2017-11-07] MEDS ORDERED: cefTRIAXone SODIUM 1 GM VIAL ONE (15:15)
[2017-11-07] MEDS ORDERED: methylPREDNISolone NA SUCC 125 MG/2 ML VIAL ONE (15:15)
[2017-11-07] MEDS ORDERED: AZITHROMYCIN 500 MG VIAL IVPB ONE (15:15)
[2017-11-07 15:19] LABS: INR 1.2 (0.82-1.09); PROTHROMBIN TIME (PATIENT) 13.4 SEC (10.2-13.0)
[2017-11-07 15:30] LABS: ALK PHOS 51 U/L (32-92); ANION GAP 9 (8-16); BILIRUBIN,TOTAL 0.8 mg/dl (0.2-1.0); BLOOD UREA NITROGEN 15 mg/dl (7-18); CHLORIDE 99 mmol/L (98-107); CO2 28 mmol/L (22-28); CREATININE 0.7 mg/dl (0.6-1.3); GLUCOSE,RANDOM 143 mg/dl (74-106); POTASSIUM 4.3 mmol/L (3.5-5.1); SGOT/AST 42 U/L (10-42); SGPT/ALT 36 U/L (10-40); SODIUM 136 mmol/L (136-145); TOT PROT 7.1 g/dl (6.4-8.3)
--- NOTE | 2017-11-07 17:32 | PN ---
Progress Note (short form) - Note Progress Note: PULMONARY CONSULTATION DICTATED 11/07/17 IMP ACUTE ON CHRONIC HYPOXEMIC RESPIRATORY FAILURE COPD EXACERBATION PNEUMONIA RUL NODULE STABLE LEUKOPENIA PLAN IV ANTIBIOTICS LACTATE LEVEL IV STEROIDS ABG INFLUENZA SCREEN INHALED BRONCHODILATORS MONITOR CBC CHEST CT DR ARANDA Problem List - Problems (1) Leukopenia Code(s): D72.819 - DECREASED WHITE BLOOD CELL COUNT, UNSPECIFIED (2) COPD exacerbation Code(s): J44.1 - CHRONIC OBSTRUCTIVE PULMONARY DISEASE W (ACUTE) EXACERBATION (3) Acute on chronic respiratory failure with hypoxemia Code(s): J96.21 - ACUTE AND CHRONIC RESPIRATORY FAILURE WITH HYPOXIA (4) Hypoxia Code(s): R09.02 - HYPOXEMIA (5) Lung nodule Code(s): R91.1 - SOLITARY PULMONARY NODULE
--- NOTE | 2017-11-07 18:23 | HP ---
CHIEF COMPLAINT: PCP: HISTORY OF PRESENT ILLNESS: ER course was notable for: (1) (2) (3) Recent Travel: PAST MEDICAL HISTORY: PAST SURGICAL HISTORY: Social History: Smoking: Alcohol: Drugs: Family History: Allergies No Known Allergies Allergy (Verified 11/07/17 13:25) HOME MEDICATIONS: Home Medications Medication Instructions Recorded Amlodipine Besylate [Norvasc -] 10 mg PO DAILY 12/28/13 Nebivolol HCl [Bystolic] 5 mg PO BID 12/28/13 Salmeterol/Fluticasone [Advair 1 inh IH BID 12/28/13 250Mcg/50Mcg -] Albuterol Sulfate [Proair 90 mcg IH Q6H PRN #1 [email or web address] 11/08/16 Respiclick] REVIEW OF SYSTEMS CONSTITUTIONAL: Absent: fever, chills, diaphoresis, generalized weakness, malaise, loss of appetite, weight change HEENT: Absent: rhinorrhea, nasal congestion, throat pain, throat swelling, difficulty swallowing, mouth swelling, ear pain, eye pain, visual changes CARDIOVASCULAR: Absent: chest pain, syncope, palpitations, irregular heart rate, lightheadedness , peripheral edema RESPIRATORY: Absent: cough, shortness of breath, dyspnea with exertion, orthopnea, wheezing, stridor, hemoptysis GASTROINTESTINAL: Absent: abdominal pain, abdominal distension, nausea, vomiting, diarrhea, constipation, melena, hematochezia GENITOURINARY: Absent: dysuria, frequency, urgency, hesitancy, hematuria, flank pain, genital pain MUSCULOSKELETAL: Absent: myalgia, arthralgia, joint swelling, back pain, neck pain SKIN: Absent: rash, itching, pallor HEMATOLOGIC/IMMUNOLOGIC: Absent: easy bleeding, easy bruising, lymphadenopathy, frequent infections ENDOCRINE: Absent: unexplained weight gain, unexplained weight loss, heat intolerance, cold intolerance NEUROLOGIC: Absent: headache, focal weakness or paresthesias, dizziness, unsteady gait, seizure, mental status changes, bladder or bowel incontinence PSYCHIATRIC: Absent: anxiety, depression, suicidal or homicidal ideation, hallucinations. PHYSICAL EXAMINATION Vital Signs - 24 hr 11/07/17 11/07/17 11/07/17 13:22 14:58 15:00 Temperature 99.6 F Pulse Rate 78 76 Pulse Rate [ 74 Apical] Respiratory 30 H 30 H Rate Blood Pressure 151/72 Blood Pressure 149/75 [Left Arm] O2 Sat by Pulse 89 L 88 L 89 L Oximetry (%) 11/07/17 16:45 Temperature Pulse Rate Pulse Rate [ 74 Apical] Respiratory 26 H Rate Blood Pressure Blood Pressure 142/70 [Left Arm] O2 Sat by Pulse 89 L Oximetry (%) GENERAL: Awake, alert, and fully oriented, in no acute distress. HEAD: Normal with no signs of trauma. EYES: Pupils equal, round and reactive to light, extraocular movements intact, sclera anicteric, conjunctiva clear. No lid lag. EARS, NOSE, THROAT: Ears normal, nares patent, oropharynx clear without exudates. Moist mucous membranes. NECK: Normal range of motion, supple without lymphadenopathy, JVD, or masses. LUNGS: Breath sounds equal, clear to auscultation bilaterally. No wheezes, and no crackles. No accessory muscle use. HEART: Regular rate and rhythm, normal S1 and S2 without murmur, rub or gallop. ABDOMEN: Soft, nontender, not distended, normoactive bowel sounds, no guarding, no rebound, no masses. No hepatomegaly or splenomegaly. MUSCULOSKELETAL: Normal range of motion at all joints. No bony deformities or tenderness. No CVA tenderness. UPPER EXTREMITIES: 2+ pulses, warm, well-perfused. No cyanosis. No clubbing. No peripheral edema. LOWER EXTREMITIES: 2+ pulses, warm, well-perfused. No calf tenderness. No peripheral edema. NEUROLOGICAL: Cranial nerves II-XII intact. Normal speech. Normal gait. PSYCHIATRIC: Cooperative. Good eye contact. Appropriate mood and affect. SKIN: Warm, dry, normal turgor, no rashes or lesions noted, normal capillary refill. Laboratory Results - last 24 hr 11/07/17 11/07/17 11/07/17 14:45 14:50 14:50 WBC 2.0 L RBC 3.98 Hgb 12.0 Hct 36.8 MCV 92.5 MCH 30.3 MCHC 32.7 RDW 13.4 Plt Count 233 MPV 11.4 H Neutrophils % 19.1 L Lymphocytes % 26.8 Monocytes % 53.5 H Eosinophils % 0.5 Basophils % 0.1 PT with INR 13.4 H INR 1.20 Sodium 136 Potassium 4.3 Chloride 99 D Carbon Dioxide 28 Anion Gap 9 BUN 15 Creatinine 0.7 D Creat Clearance w eGFR > 60 Random Glucose 143 H D Calcium 9.0 Total Bilirubin 0.8 AST 42 ALT 36 Alkaline Phosphatase 51 Creatine Kinase 220 H B-Natriuretic Peptide Total Protein 7.1 Albumin 4.0 11/07/17 16:30 WBC RBC Hgb Hct MCV MCH MCHC RDW Plt Count MPV Neutrophils % Lymphocytes % Monocytes % Eosinophils % Basophils % PT with INR INR Sodium Potassium Chloride Carbon Dioxide Anion Gap BUN Creatinine Creat Clearance w eGFR Random Glucose Calcium Total Bilirubin AST ALT Alkaline Phosphatase Creatine Kinase B-Natriuretic Peptide 1771.66 H Total Protein Albumin ASSESSMENT/PLAN:
[2017-11-07] MEDS ORDERED: FUROSEMIDE 40 MG/4 ML INJECTABLE VIAL IVPUSH ONE (18:50)
[2017-11-07 19:00] LABS: CARBOXYHEMOGLOBIN 1.9 gm% (0.5-2.0)
[2017-11-07] MEDS ORDERED: FUROSEMIDE 40 MG/4 ML INJECTABLE VIAL ONE (19:38)
[2017-11-07] MEDS: ALBUTEROL SO4 2.5/IPRATROPIUM 0.5 INH SOL 3 ML VIAL.NEB. NEB SCH (20:10)
[2017-11-07] MEDS ORDERED: methylPREDNISolone NA SUCC 40 MG/1 ML VIAL ONE (20:56)
[2017-11-07 20:57] LABS: TROPONIN I (DFP) < 0.03 ng/ml (0.03-0.50)
[2017-11-07] MEDS: methylPREDNISolone NA SUCC 40 MG/1 ML VIAL IVPUSH SCH (21:00)
--- NOTE | 2017-11-07 21:10 | HP ---
CHIEF COMPLAINT: SOB/cough PCP: Angely, Pulmonology: Arturo HISTORY OF PRESENT ILLNESS: This is an 82 year old female with a significant PMH of COPD and PNA 1 year ago who presented to the ED with a 3 day history of increasingly productive cough ( brownish phlegm) and SOB. She is supposed to be on continuous home O2 but does not utilize it consistently during the day. Her oxygen saturation at home was 54 % on room air this morning which prompted her daughter to bring her to the ED. ER course was notable for: (1) Pulse ox 75 on RA, up to 89% on 3LNC (2) given ceftriaxone, zithromax, solumedrol 60, duonebs (3) WBC 2.0 Recent Travel: pt denies PAST MEDICAL HISTORY: COPD, HTN, PNA PAST SURGICAL HISTORY: Appendectomy, B/L IOL, tonsillectomy Social History: Smoking:Former smoker, quit 30-40 years ago Alcohol:Denies Drugs: Denies Family History: [place], Aortic aneurism Mother: Brain hemorrhage Allergies No Known Allergies Allergy (Verified 11/07/17 13:25) HOME MEDICATIONS: 3 Medication Instructions Recorded Amlodipine Besylate [Norvasc -] 10 mg PO DAILY 12/28/13 Nebivolol HCl [Bystolic] 5 mg PO BID 12/28/13 Salmeterol/Fluticasone [Advair 1 inh IH BID 12/28/13 250Mcg/50Mcg -] Albuterol Sulfate [Proair 90 mcg IH Q6H PRN #1 [email or web address] 11/08/16 Respiclick] REVIEW OF SYSTEMS CONSTITUTIONAL: Absent: fever, chills, diaphoresis, generalized weakness, malaise, loss of appetite, weight change HEENT: Absent: rhinorrhea, nasal congestion, throat pain, throat swelling, difficulty swallowing, mouth swelling, ear pain, eye pain, visual changes CARDIOVASCULAR: Absent: chest pain, syncope, palpitations, irregular heart rate, lightheadedness , peripheral edema RESPIRATORY: Present: cough, shortness of breath Absent: dyspnea with exertion, orthopnea, wheezing, stridor, hemoptysis GASTROINTESTINAL: Absent: abdominal pain, abdominal distension, nausea, vomiting, diarrhea, constipation, melena, hematochezia GENITOURINARY: Absent: dysuria, frequency, urgency, hesitancy, hematuria, flank pain, genital pain MUSCULOSKELETAL: Absent: myalgia, arthralgia, joint swelling, back pain, neck pain SKIN: Absent: rash, itching, pallor HEMATOLOGIC/IMMUNOLOGIC: Absent: easy bleeding, easy bruising, lymphadenopathy, frequent infections ENDOCRINE: Absent: unexplained weight gain, unexplained weight loss, heat intolerance, cold intolerance NEUROLOGIC: Absent: headache, focal weakness or paresthesias, dizziness, unsteady gait, seizure, mental status changes, bladder or bowel incontinence PSYCHIATRIC: Absent: anxiety, depression, suicidal or homicidal ideation, hallucinations. PHYSICAL EXAMINATION Vital Signs - 24 hr 3 11/07/17 11/07/17 11/07/17 11/07/17 11/07/17 13:22 14:58 15:00 16:45 20:40 Temperature 99.6 F Pulse Rate 78 76 Pulse Rate [ 74 74 83 Apical] Respiratory 30 H 30 H 26 H 30 H Rate Blood Pressure 151/72 Blood Pressure 149/75 142/70 146/61 [Left Arm] O2 Sat by Pulse 89 L 88 L 89 L 89 L 89 L Oximetry (%) GENERAL: Awake, alert, and fully oriented, in no acute distress. HEAD: Normal with no signs of trauma. EYES: Pupils equal, round and reactive to light, extraocular movements intact, sclera anicteric, conjunctiva clear. No lid lag. EARS, NOSE, THROAT: Ears normal, nares patent, oropharynx clear without exudates. Moist mucous membranes. NECK: Normal range of motion, supple without lymphadenopathy, JVD, or masses. LUNGS: Breath sounds equal. Mild diffuse bilat wheezing noted HEART: Regular rate and rhythm, normal S1 and S2 without murmur, rub or gallop. ABDOMEN: Soft, nontender, not distended, normoactive bowel sounds, no guarding, no rebound, no masses. No hepatomegaly or splenomegaly. MUSCULOSKELETAL: Normal range of motion at all joints. No bony deformities or tenderness. No CVA tenderness. UPPER EXTREMITIES: 2+ pulses, warm, well-perfused. No cyanosis. No clubbing. No peripheral edema. LOWER EXTREMITIES: 2+ pulses, warm, well-perfused. No calf tenderness. No peripheral edema. NEUROLOGICAL: Cranial nerves II-XII intact. Normal speech. Normal gait. PSYCHIATRIC: Cooperative. Good eye contact. Appropriate mood and affect. SKIN: Warm, dry, normal turgor, no rashes or lesions noted, normal capillary refill. Laboratory Results - last 24 hr 3 11/07/17 11/07/17 11/07/17 14:45 14:50 14:50 WBC 2.0 L RBC 3.98 Hgb 12.0 Hct 36.8 MCV 92.5 MCH 30.3 MCHC 32.7 RDW 13.4 Plt Count 233 MPV 11.4 H Neutrophils % 19.1 L Lymphocytes % 26.8 Monocytes % 53.5 H Eosinophils % 0.5 Basophils % 0.1 PT with INR 13.4 H INR 1.20 Anticoagulation Therapy Carboxyhemoglobin Methemoglobin O2 Delivery Device Oxygen Flow Rate Vent Mode Vent Rate Mechanical Rate Pressure Support Vent Sodium 136 Potassium 4.3 Chloride 99 D Carbon Dioxide 28 Anion Gap 9 BUN 15 Creatinine 0.7 D Creat Clearance w eGFR > 60 Random Glucose 143 H D Lactic Acid Calcium 9.0 Total Bilirubin 0.8 AST 42 ALT 36 Alkaline Phosphatase 51 Creatine Kinase 220 H Troponin I < 0.03 L B-Natriuretic Peptide Total Protein 7.1 Albumin 4.0 3 11/07/17 11/07/17 11/07/17 16:30 17:29 17:45 WBC RBC Hgb Hct MCV MCH MCHC RDW Plt Count MPV Neutrophils % Lymphocytes % Monocytes % Eosinophils % Basophils % PT with INR INR Anticoagulation Therapy No Result Required. Carboxyhemoglobin 1.9 Methemoglobin 0.9 O2 Delivery Device No Result Required. Oxygen Flow Rate No Result Required. Vent Mode No Result Required. Vent Rate No Result Required. Mechanical Rate No Result Required. Pressure Support Vent No Result Required. Sodium Potassium Chloride Carbon Dioxide Anion Gap BUN Creatinine Creat Clearance w eGFR Random Glucose Lactic Acid 1.2 Calcium Total Bilirubin AST ALT Alkaline Phosphatase Creatine Kinase Troponin I B-Natriuretic Peptide 1771.66 H Total Protein Albumin ECG Normal sinus rhythm Vent rate 69, QTC 435 flattened T waves, lead [address]/T changes Radiology Reports Chest, single view IMPRESSION: Mild cardiomegaly. Interval increase interstitial opacities, bilaterally suggestive of mild pulmonary venous congestion plus or minus interstitial infiltrates. Follow-up is needed Reported By: Natasha Marley MD 11/07/17 [id number] ASSESSMENT/PLAN: 82yF with PMH COPD, PNA, HTN presented to ED with a 3 day h/o increased SOB and productive cough. Sepsis secondary to PNA/COPD exacerbation with acute on chronic respiratory failure - DW pulm, consult appreciated - cont azithromycin and ceftriaxone - IV solumedrol 40mg Q6h - duonebs QID - Influenza negative - chest CT to be done tomorrow HTN - cont home meds DVT PPX - heparin 5000u BID FEN - defer IVF as pt appears slightly volume overloaded, lasix given x 1 dose. - BMP in am - low sodium diet Dispo: Pt currently requires inpatient management of her emergent condition. Visit type - Emergency Visit Emergency Visit: Yes ED Registration Date: 11/07/17 Care time: The patient presented to the Emergency Department on the above date and was hospitalized for further evaluation of their emergent condition. - New Patient This patient is new to me today: Yes Date on this admission: 11/07/17 - Critical Care Critical Care patient: No
[2017-11-07 21:51] LABS: PLATELET ESTIMATE ADEQUATE
[2017-11-07 22:08] VITALS: BMI 24.7
[2017-11-07 22:25] LABS: PH,URINE 5.5 (4.5-8); URINE APPEARANCE Clear; URINE BILIRUBIN Negative (NEGATIVE); URINE GLUCOSE (UA) Negative (NEGATIVE); URINE KETONE Negative (NEGATIVE); URINE NITRITE Negative (NEGATIVE); URINE UROBILINOGEN 0.2 (0.2-1.0)
[2017-11-07 22:58] LABS: URINE BLOOD 1+ (NEGATIVE); URINE COLOR YELLOW; URINE PROTEIN 3+ (NEGATIVE)
[2017-11-07 22:59] LABS: URINE BACTERIA FEW /hpf (NEGATIVE); URINE WBC 0-2 (0-5)
[2017-11-08] MEDS: methylPREDNISolone NA SUCC 40 MG/1 ML VIAL IVPUSH SCH ×4 (03:36→21:18)
[2017-11-08 07:51] LABS: HEMATOCRIT 35.2 % (32.4-45.2); HEMOGLOBIN 11.6 GM/dl (10.7-15.3); MCH 30.6 pg (25.7-33.7); MCHC 32.9 g/dl (32.0-36.0); MEAN PLT VOLUME 10.6 fl (7.5-11.1); PLATELET COUNT 225 K/MM3 (134-434); RBC 3.78 M/mm3 (3.60-5.2); RDW 13.3 % (11.6-15.6)
[2017-11-08 08:01] LABS: ADD RBC MORPHOLOGY YES
[2017-11-08] MEDS: ALBUTEROL SO4 2.5/IPRATROPIUM 0.5 INH SOL 3 ML VIAL.NEB. NEB SCH ×4 (08:05→21:19)
[2017-11-08 08:43] LABS: ANION GAP 10 (8-16); BLOOD UREA NITROGEN 14 mg/dl (7-18); CALCIUM 8.5 mg/dl (8.4-10.2); CHLORIDE 97 mmol/L (98-107); CO2 30 mmol/L (22-28); CREATININE 0.7 mg/dl (0.6-1.3); GLUCOSE,RANDOM 163 mg/dl (74-106); MAGNESIUM 2.1 mg/dL (1.8-2.4); PHOSPHOROUS 2.1 mg/dl (2.5-4.6); POTASSIUM 3.7 mmol/L (3.5-5.1); SODIUM 137 mmol/L (136-145)
[2017-11-08] MEDS: AZITHROMYCIN IVPB 500 MG in DEXTROSE 5%-WATER - 250 ML IVPB SCH (09:00)
[2017-11-08] MEDS ORDERED: PT OWN MED DRAWER 7, Y5N ONE ×2 (09:58→21:11)
[2017-11-08] MEDS ORDERED: amLODIPine BESYLATE 10 MG TABLET (FP) PO SCH (10:00)
[2017-11-08] MEDS ORDERED: CEFTRIAXONE 1 G/50 ML PREMIX 50 ML IVPB SCH (10:00)
[2017-11-08] MEDS: NEBIVOLOL 5 MG TABLET (FP) PO SCH ×2 (10:12→21:18)
[2017-11-08] MEDS: HEPARIN NA (PORCINE) 5,000 UNITS/ML 1ML VIAL SQ SCH ×2 (10:12→21:18)
[2017-11-08] MEDS: BUDESONIDE/FORMETEROL FUMARATE 80/4.5 mcg INHALER IH SCH ×2 (10:14→21:22)
--- NOTE | 2017-11-08 10:16 | PN ---
Progress Note (short form) - Note Progress Note: ID Consult dictated Acute exacerbation COPD ? Viral URI ( Leukopenia/ Lymphocytosis) Neutropenia Pending c/s empiric zithromax/ cefepime Sterois/Bronchodilators
[2017-11-08 10:28] LABS: PLATELET ESTIMATE ADEQUATE
[2017-11-08] MEDS: CEFEPIME HCL 1 GM VIAL (RESTRICTED TO ID) IVPB SCH ×2 (10:35→18:01)
--- NOTE | 2017-11-08 11:48 | CONS ---
DATE OF CONSULTATION: 11/07/2017 PULMONARY CONSULTATION REFERRING PHYSICIAN: Ramon Cleveland M.D. HISTORY OF PRESENT ILLNESS: The patient is an 82-year-old white female known to me from previous office visits as well as hospitalization with a past medical history of COPD on home oxygen, using it approximately 12 hours a day; hypertension and a history of a right upper lobe nodule, chronic, no change since 2008. She presented to [facility] secondary to increasing shortness of breath, cough and hypoxemia. The patient was apparently doing well until 3 days prior to admission, when she started developing URI symptoms. At times, she has nasal congestion, shortness of breath and cough productive of yellowish phlegm. She denied any fever or chills. She denied nausea, vomiting or diaphoresis. Last night, she started developing increasing shortness of breath and marked dyspnea on exertion. She took her oxygen saturation this morning and it was 54%, at which time she presented to the emergency room. In the ER, she was treated with inhaled bronchodilators and supplemental oxygen with some improvement. She had a chest x-ray performed which revealed mild right lower lobe infiltrate and mild pulmonary vascular congestion. The patient denies any chest pain, nausea or vomiting. She denies any hemoptysis. She denies any fever or chills. She denies any recent travel. There is no history of DVT or PE in the past. PAST MEDICAL HISTORY: Again includes advanced COPD, hypertension, right lower lobe nodule. SOCIAL HISTORY: She quit smoking in 1989. No occupational exposures. MEDICATIONS: Medications prior to admission included Norvasc, ProAir, Advair and Bystolic. REVIEW OF SYSTEMS: Positive shortness of breath. Positive cough. No fever, no chills, no chest pain, no palpitations, no abdominal pain, no lower extremity edema. PHYSICAL EXAMINATION: General: The patient is an elderly white female, well developed, well nourished, awake, alert, mildly dyspneic but in no acute distress. Vitals: She is currently afebrile. Blood pressure is 142/90. Respiratory rate is 20 to 22. O2 saturation is 90% on 3 liters. HEENT: Normocephalic, atraumatic. Neck: Supple. Heart: Regular S1, S2. Chest: Scattered bilateral wheezes. Abdomen: Soft. Bowel sounds are positive. Extremities: No cyanosis or edema. LABORATORIES: WBC is 2, hemoglobin 12.0, hematocrit 36.8; platelet count 233,000. BUN 15, creatinine 0.9. BMP is pending. RADIOLOGY: Chest x-ray reveals increased markings at the right base. Mild markings bilaterally, but more dense markings at the right base. IMPRESSION: 1. [id number] hypoxic respiratory failure secondary to: 2. Chronic obstructive pulmonary disease exacerbation. 3. Rule out pneumonia, right lower lobe. 4. Leukopenia, possibly secondary to viral. 5. Rule out mild congestive heart failure. 6. Hypertension. PLAN: IV steroids, inhaled bronchodilators, supplemental oxygen, antibiotic therapy, CT scan of the chest. Obtain cultures, sputum for culture and sensitivity, cold agglutinins, Legionella antigen. Check BNP. Also monitor CBC. DONOVAN ARANDA M.D. [id number]
--- NOTE | 2017-11-08 12:22 | PN ---
Physical Exam: SUBJECTIVE: Patient seen and examined at bedside. OBJECTIVE: Vital Signs Period Temp Pulse Resp BP Sys/Huitron Pulse Ox Last 24 Hr 98.6 F-99.6 F 69-86 19-30 142-151/55-75 75-89 GENERAL: The patient is awake, alert, and fully oriented, in no acute distress. LUNGS: Breath sounds equal, diminished bilaterally, mild wheezes, no crackles, no accessory muscle use. HEART: Regular rate and rhythm, S1, S2 without murmur, rub or gallop. ABDOMEN: SNTND EXTREMITIES: 2+ pulses, warm, well-perfused, no edema. NEUROLOGICAL: Cranial nerves II through XII grossly intact. Normal speech, gait not observed. PSYCH: Normal mood, normal affect. Laboratory Results - last 24 hr 11/07/17 11/07/17 11/07/17 14:45 14:50 14:50 WBC 2.0 L RBC 3.98 Hgb 12.0 Hct 36.8 MCV 92.5 MCH 30.3 MCHC 32.7 RDW 13.4 Plt Count 233 MPV 11.4 H Neutrophils % Collection Agent Neutrophils % (Manual) 30.0 L Band Neutrophils % 8.0 Lymphocytes % Collection Agent Lymphocytes % (Manual) 50.0 H Monocytes % Collection Agent Monocytes % (Manual) 10 Eosinophils % Collection Agent Eosinophils % (Manual) 2.0 Basophils % Collection Agent Platelet Estimate Adequate Platelet Comment PT with INR 13.4 H INR 1.20 Anticoagulation Therapy Carboxyhemoglobin Methemoglobin O2 Delivery Device Oxygen Flow Rate Vent Mode Vent Rate Mechanical Rate Pressure Support Vent Sodium 136 Potassium 4.3 Chloride 99 D Carbon Dioxide 28 Anion Gap 9 BUN 15 Creatinine 0.7 D Creat Clearance w eGFR > 60 Random Glucose 143 H D Lactic Acid Calcium 9.0 Phosphorus Magnesium Total Bilirubin 0.8 AST 42 ALT 36 Alkaline Phosphatase 51 Creatine Kinase 220 H Creatine Kinase Index 0.7 CK-MB (CK-2) 1.7 Troponin I < 0.03 L B-Natriuretic Peptide Total Protein 7.1 Albumin 4.0 Urine Color Urine Appearance Urine pH Ur Specific [place] Urine Protein Urine Glucose (UA) Urine Ketones Urine Blood Urine Nitrite Urine Bilirubin Urine Urobilinogen Ur Leukocyte Esterase Urine RBC Urine WBC Urine Bacteria 11/07/17 11/07/17 11/07/17 16:30 17:29 17:45 WBC RBC Hgb Hct MCV MCH MCHC RDW Plt Count MPV Neutrophils % Neutrophils % (Manual) Band Neutrophils % Lymphocytes % Lymphocytes % (Manual) Monocytes % Monocytes % (Manual) Eosinophils % Eosinophils % (Manual) Basophils % Platelet Estimate Platelet Comment PT with INR INR Anticoagulation Therapy No Result Required. Carboxyhemoglobin 1.9 Methemoglobin 0.9 O2 Delivery Device No Result Required. Oxygen Flow Rate No Result Required. Vent Mode No Result Required. Vent Rate No Result Required. Mechanical Rate No Result Required. Pressure Support Vent No Result Required. Sodium Potassium Chloride Carbon Dioxide Anion Gap BUN Creatinine Creat Clearance w eGFR Random Glucose Lactic Acid 1.2 Calcium Phosphorus Magnesium Total Bilirubin AST ALT Alkaline Phosphatase Creatine Kinase Creatine Kinase Index CK-MB (CK-2) Troponin I B-Natriuretic Peptide 1771.66 H Total Protein Albumin Urine Color Urine Appearance Urine pH Ur Specific [place] Urine Protein Urine Glucose (UA) Urine Ketones Urine Blood Urine Nitrite Urine Bilirubin Urine Urobilinogen Ur Leukocyte Esterase Urine RBC Urine WBC Urine Bacteria 11/07/17 11/08/17 11/08/17 22:00 07:47 07:47 WBC 2.0 L RBC 3.78 Hgb 11.6 Hct 35.2 MCV 93.0 MCH 30.6 MCHC 32.9 RDW 13.3 Plt Count 225 MPV 10.6 Neutrophils % Collection Agent Neutrophils % (Manual) 12.0 L Band Neutrophils % 8.0 Lymphocytes % Collection Agent Lymphocytes % (Manual) 32.0 Monocytes % Collection Agent Monocytes % (Manual) 48 H* Eosinophils % Collection Agent Eosinophils % (Manual) Basophils % Collection Agent Platelet Estimate Adequate Platelet Comment Few giant plts PT with INR INR Anticoagulation Therapy Carboxyhemoglobin Methemoglobin O2 Delivery Device Oxygen Flow Rate Vent Mode Vent Rate Mechanical Rate Pressure Support Vent Sodium 137 Potassium 3.7 Chloride 97 L Carbon Dioxide 30 H Anion Gap 10 BUN 14 Creatinine 0.7 Creat Clearance w eGFR Random Glucose 163 H Lactic Acid Calcium 8.5 Phosphorus 2.1 L Magnesium 2.1 Total Bilirubin AST ALT Alkaline Phosphatase Creatine Kinase Creatine Kinase Index CK-MB (CK-2) Troponin I B-Natriuretic Peptide Total Protein Albumin Urine Color Yellow Urine Appearance Clear Urine pH 5.5 Ur Specific [place] 1.020 Urine Protein 3+ H Urine Glucose (UA) Negative Urine Ketones Negative Urine Blood 1+ H Urine Nitrite Negative Urine Bilirubin Negative Urine Urobilinogen 0.2 Ur Leukocyte Esterase Negative Urine RBC 2-5 Urine WBC 0-2 Urine Bacteria Few Active Medications Generic Name Dose Route Start Last Admin Trade Name Freq PRN Reason Stop Dose Admin Albuterol/Ipratropium 1 amp 11/07/17 20:00 11/08/17 08:05 Duoneb - NEB 1 amp RQID PATRICIA Administration Amlodipine Besylate 10 mg 11/08/17 10:00 11/08/17 10:13 Norvasc - PO 10 mg DAILY PATRICIA Administration Budesonide/Formoterol Fumarate 2 puff 11/08/17 10:00 11/08/17 10:14 Symbicort 80/4.5mcg - IH 2 puff BID PATRICIA Administration Cefepime HCl 1 gm 11/08/17 10:15 Maxipime (Restricted To Id) - IVPB Q8H-IV PATRICIA Protocol Heparin Sodium (Porcine) 5,000 unit 11/08/17 10:00 11/08/17 10:12 Heparin - SQ 5,000 unit BID PATRICIA Administration Azithromycin 500 mg/ Dextrose 250 mls @ 250 mls/hr 11/08/17 10:00 IVPB DAILY PATRICIA Methylprednisolone Sodium Succinate 40 mg 11/07/17 21:00 11/08/17 09:12 Solu-Medrol - IVPUSH 40 mg Q6H-IV PATRICIA Administration Nebivolol 5 mg 11/08/17 10:00 11/08/17 10:12 Bystolic - PO 5 mg BID PATRICIA Administration Imaging: CT chest without contrast. Indication: Pneumonia. Technique: Axial noncontrast chest CT with coronal and sagittal reformations. Comparison: 11/05/[address] Findings: Large airways of the central tracheobronchial tree are patent. There is nodularity along the dependent wall of the trachea and right mainstem bronchus, most likely secretions. There is wall thickening along the segmental and subsegmental airways throughout, increased since prior chest CT, reflecting nonspecific airways disease. Moderately severe centrilobular emphysematous changes. There are ill-defined hazy centrilobular groundglass nodular opacities in the left upper lobe, to lesser extent in the anterior right upper lobe and right middle lobe. There are ill-defined centrilobular opacities in the right lung base. There are subsegmental opacities in both lung bases, right more than left favored to represent atelectasis. There is new 10 mm pleural based nodular opacity in the right lung base (image 71 of series 3), which may represent focal atelectatic change. Approximately 2.0 x 1.8 cm right upper lobe nodule with eccentric coarse calcification appears unchanged in size and configuration from the prior CT. There are additional bilateral solid noncalcified nodular opacities, similar in size to 11/05/2016. There are trace layering pleural effusions. There is no pneumothorax. The axillary regions are unremarkable. No pathologically enlarged mediastinal lymph nodes by CT size criteria. There is no evidence of bulky hilar lymphadenopathy, within the limitations of no IV contrast. Shotty subcentimeter pretracheal mediastinal lymph nodes aren't right hilar lymph nodes are similar in size to the prior exam. The heart is not enlarged. Trace pericardial fluid may be physiologic. There is mild to moderate coronary artery calcific atherosclerosis. Normal caliber thoracic aorta with calcific atherosclerosis along the arch and takeoff of the great vessels. Main pulmonary artery measures 30 mm in diameter. There is a small hiatal hernia. There is no mass in the adrenal glands. There are small hypoattenuating lesions in the upper poles of the kidneys which are incompletely visualized, likely cysts. There is osseous demineralization. Chronic anterior wedging compression fracture of the T12 vertebral body with moderate to severe loss of height is unchanged. Impression: 1. Ill-defined bilateral groundglass opacities as above, presumably infectious. Follow-up chest CT is recommended in 3 months. Trace layering bilateral pleural effusions. 2. Bronchial wall thickening along bilateral segmental and subsegmental airways is increased since prior chest CT, reflecting nonspecific airways disease. Please correlate clinically for active bronchitis. 3. Moderately severe centrilobular emphysematous changes. Previously described solid bilateral pulmonary nodules measuring up to 2.0 cm in the right upper lobe are unchanged in size. Continued follow-up is suggested. 4. Prominent main pulmonary artery for degree of emphysematous change. Please correlate clinically for pulmonary artery hypertension. Reported By: Amy Cerna DO 11/08/17 1120 ASSESSMENT/PLAN: A: 82-year-old woman with past medical history of hypertension and COPD who is dependent on home oxygen who was admitted for COPD exacerbation. P: COPD exacerbation - CT of the chest as above - Methylprednisone 40 mg every 6 hours IV - Combivent 4 times a day - Influenza swabs negative - Pulmonology following Bronchitis - CT of the chest as above - Methylprednisone 40 mg every 6 hours IV - Combivent 4 times a day - Cefepime - Zithromax - ID following - Pulmonology following Neutropenia - Cefepime - Zithromax - ID following Chest pain - Ranexa - Nebivolol - tele - echo pending - Stress in AM - Cards following HTN - Norvasc - Nebivolol F/E/N - Low Na diet - Replete prn PPX - sqh Dispo- requires continued inpatient evaluation Visit type - Emergency Visit Emergency Visit: Yes ED Registration Date: 11/07/17 Care time: The patient presented to the Emergency Department on the above date and was hospitalized for further evaluation of their emergent condition. - New Patient This patient is new to me today: Yes Date on this admission: 11/09/17 - Critical Care Critical Care patient: No
--- NOTE | 2017-11-08 17:15 | CONS ---
DATE OF CONSULTATION: HISTORY: The patient is an 82-year-old female with a history of COPD evaluated for pneumonia. The patient was admitted to the hospital with a 3-day history of worsening shortness of breath and upper respiratory tract symptoms. The patient states she had been in contact with family members who had upper respiratory tract infections. She complains of increasing shortness of breath associated with cough productive of whitish sputum. She denies any chest pain or hemoptysis. No high-grade fever or shaking chills. The patient states she received influenza vaccine this season. She denies any recent hospitalizations or travel. She is a former smoker. She is noted to have leukopenia with lymphocytosis. PAST MEDICAL HISTORY: Positive for COPD and hypertension. PAST SURGICAL HISTORY: Status post appendectomy and tonsillectomy. ALLERGIES: No known allergies. MEDICATIONS: Norvasc, Bystolic, Advair. SOCIAL HISTORY: Former smoker. Lives at home. SYSTEMS REVIEW: Neurologic: No loss of consciousness, seizure activity, focal weakness. Cardiac: Negative chest pain or palpitations. Respiratory: As per HPI. Gastrointestinal: Negative vomiting or diarrhea. Genitourinary: Negative for urinary tract infection. LABORATORY DATA: White count 2 and 30 neutrophils, 8 bands, 5 lymphocytes, 10 monocytes, hematocrit 35.2, platelet count 225, BUN 14, creatinine 0.7. Absolute neutrophil count 760. Influenza swab negative. Urinalysis: 0-2 white cells. PHYSICAL EXAMINATION: General: The patient is awake. Out of bed to chair. Appears slightly dyspneic at rest. Vital Signs: Temperature 98.6, blood pressure 148/66, pulse 69 and regular, respirations 19 per minute. HEENT: Sclerae anicteric. Heart: Sounds S1, S2. Lungs: Scattered rhonchi and crepitations at the bases bilaterally. Abdomen: Soft. No tenderness elicited. No mass, rebound, or rigidity. Extremities: Have 1+ edema. IMPRESSION: 1. Acute exacerbation of chronic obstructive pulmonary disease. 2. Probable viral respiratory tract infection. 3. Neutropenia. Suspect viral URI with leukopenia and lymphocytosis. Pending cultures empiric antibiotic coverage with Zithromax and cefepime. Intravenous corticosteroids, inhaled bronchodilators. Thank you for the kind referral. DISHA EVANS M.D. [id number]
--- NOTE | 2017-11-08 17:54 | PN ---
Progress Note (short form) - Note Progress Note: Chief Complaint: Events noted, notes reviewed, progressive exertional dyspnea and exertional chest discomfort History of Present Illness: Seen and examined on telemetry. Full consult dictated Echocardiography recently revealed normal LV size and function, mild to moderate TR with moderate pulmonary HTN, RVSP of 50-60 mmHg, moderate with AV area of 0.8 cm2 Medications: Current Medications Albuterol/Ipratropium (Duoneb -) 1 amp NEB RQID [facility] Last Admin: 11/08/17 08:05 Dose: 1 amp Amlodipine Besylate (Norvasc -) 10 mg PO DAILY [facility] Last Admin: 11/08/17 10:13 Dose: 10 mg Budesonide/Formoterol Fumarate (Symbicort 80/4.5mcg -) 2 puff IH BID [facility] Last Admin: 11/08/17 10:14 Dose: 2 puff Cefepime HCl (Maxipime (Restricted To Id) -) 1 gm IVPB Q8H-IV [facility] PRN Reason: Protocol Heparin Sodium (Porcine) (Heparin -) 5,000 unit SQ BID [facility] Last Admin: 11/08/17 10:12 Dose: 5,000 unit Azithromycin 500 mg/ Dextrose 250 mls @ 250 mls/hr IVPB DAILY [facility] Methylprednisolone Sodium Succinate (Solu-Medrol -) 40 mg IVPUSH Q6H-IV [facility] Last Admin: 11/08/17 09:12 Dose: 40 mg Nebivolol (Bystolic -) 5 mg PO BID [facility] Last Admin: 11/08/17 10:12 Dose: 5 mg Review of Systems Cardiovascular: As noted above Respiratory: denies: reports: Cough and Sputum Production Gastrointestinal: denies: Nausea, vomiting, Diarrhea, Constipation or Abdominal Discomfort Musculoskeletal: No Symptoms Reported Endocrine: No Symptoms Reported Vital Signs: Last Vital Signs Temp Pulse Resp BP Pulse Ox 97.4 F L 98 H 20 135/46 90 L 11/08/17 14:34 11/08/17 14:34 11/08/17 14:34 11/08/17 14:34 11/08/17 14:34 Intake & Output 11/05/17 11/06/17 11/07/17 11/08/17 23:59 23:59 23:59 23:59 Intake Total 550 825 Output Total 800 Balance -250 825 Weight 127 lb Constitutional: No Distress, Calm Neck: Supple Negative JVD Respiratory: Course Crepitus Bilaterally with Scattered Rhonchi Cardiovascular: S1 S2 Regular Rate Rhythm Grade 2/6 MILAGRO Gastrointestinal: Soft Benign Normal Bowel Sounds Ext: Trace Edema Labs: CBC, BMP 11/08/17 07:47 11/08/17 07:47 Hepatic Panel Total Bilirubin 0.8 mg/dl (0.2-1.0) 11/07/17 14:50 AST 42 U/L (10-42) 11/07/17 14:50 ALT 36 U/L (10-40) 11/07/17 14:50 Alkaline Phosphatase 51 U/L (32-92) 11/07/17 14:50 Albumin 4.0 g/dl (3.5-5.0) 11/07/17 14:50 INR, PTT INR 1.20 (0.82-1.09) 11/07/17 14:50 Assessment/Plan ASSESSMENT: 1. Clinical presentation is consistent acute exacerbation of chronic obstructive airway disease 2. In addition acute on chronic diastolic LV dysfunction with class I-II NYHA classification LV failure 3. 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 Aortic stenosis moderate in severity SHEREEN of 0.8 cm2 5. HTN 6. Hyperglycemia, DM no history 7. Hypercholestrolemia 8. Pulmonary HTN, probably multi-factorial (diastolic LV dysfunction, and chronic obstructive airway disease) 9. Neutropenia PLAN: 1. Continue Bystolic therapy with caution 2. Continue Norvasc therapy but decrease dosage 3. Add ACEI or ARBS considering the above noted presentation 4. Add diuretics with caution considering the above noted presentation 5. Add Ranexa considering the above noted presentation 6. Antibiotics, steroids and bronchodilators as per the pulmonary team 7. Obtain lipid profile and therapy initiation accordingly 8. Echocardiography study to be reviewed in reference to the above noted valvular pathology 9. Pharmacologic MPI study for evaluation of the above noted presentation to be considered pending review of the above noted echocardiography Thank you for the consult Tera Tyson M.D.
[2017-11-08] MEDS ORDERED: REFRIGERATED ANITBIOTICS ONE (18:03)
[2017-11-08] MEDS: CEFEPIME 1 GM/100 ML BAG PRE-DOCKED IVPB SCH (18:40)
[2017-11-08] MEDS: RANOLAZINE E.R. 500 MG TABLET (FP) PO SCH (21:18)
[2017-11-09] MEDS: CEFEPIME 1 GM/100 ML BAG PRE-DOCKED IVPB SCH ×3 (01:23→21:45)
[2017-11-09] MEDS: methylPREDNISolone NA SUCC 40 MG/1 ML VIAL IVPUSH SCH ×4 (02:07→21:47)
[2017-11-09] MEDS: ALBUTEROL SO4 2.5/IPRATROPIUM 0.5 INH SOL 3 ML VIAL.NEB. NEB SCH ×4 (08:00→21:45)
--- NOTE | 2017-11-09 08:04 | PN ---
Progress Note (short form) - Note Progress Note: Chief Complaint: Events noted, notes reviewed, feels better, denies any rest chest pain, presented with progressive exertional dyspnea and exertional chest discomfort History of Present Illness: Seen and examined on telemetry. Events noted, notes reviewed, feels better, denies any rest chest pain, presented with progressive exertional dyspnea and exertional chest discomfort Echocardiography correction was performed October, revealed normal LV size and function, mild to moderate TR with moderate pulmonary HTN, RVSP of 50-60 mmHg, moderate with AV area of 0.8 cm2 Medications: Current Medications Albuterol/Ipratropium (Duoneb -) 1 amp NEB RQID [facility] Last Admin: 11/08/17 21:19 Dose: 1 amp Amlodipine Besylate (Norvasc -) 5 mg PO DAILY [facility] Budesonide/Formoterol Fumarate (Symbicort 80/4.5mcg -) 2 puff IH BID [facility] Last Admin: 11/08/17 21:22 Dose: 2 puff Cefepime HCl (Maxipime 1gm Ivpb Pre-Docked) 1 gm IVPB Q8H-IV [facility] Last Admin: 11/09/17 01:23 Dose: 1 gm Furosemide (Lasix -) 20 mg PO DAILY [facility] Heparin Sodium (Porcine) (Heparin -) 5,000 unit SQ BID [facility] Last Admin: 11/08/17 21:18 Dose: 5,000 unit Azithromycin 500 mg/ Dextrose 250 mls @ 250 mls/hr IVPB DAILY [facility] Last Admin: 11/08/17 09:00 Dose: 250 mls/hr Methylprednisolone Sodium Succinate (Solu-Medrol -) 40 mg IVPUSH Q6H-IV [facility] Last Admin: 11/09/17 02:07 Dose: 40 mg Nebivolol (Bystolic -) 5 mg PO BID [facility] Last Admin: 11/08/17 21:18 Dose: 5 mg Ranolazine (Ranexa -) 500 mg PO BID [facility] Last Admin: 11/08/17 21:18 Dose: 500 mg Valsartan (Diovan -) 80 mg PO DAILY [facility] Review of Systems Cardiovascular: As noted above Respiratory: denies: reports: Cough and Sputum Production Gastrointestinal: denies: Nausea, vomiting, Diarrhea, Constipation or Abdominal Discomfort Musculoskeletal: No Symptoms Reported Endocrine: No Symptoms Reported Vital Signs: Last Vital Signs Temp Pulse Resp BP Pulse Ox 98.0 F 70 19 135/68 94 L 11/09/17 05:00 11/09/17 05:00 11/09/17 05:00 11/09/17 05:00 11/09/17 05:59 Intake & Output 11/06/17 11/07/17 11/08/17 11/09/17 23:59 23:59 23:59 23:59 Intake Total 550 825 100 Output Total 800 Balance -250 825 100 Weight 127 lb Constitutional: No Distress, Calm Neck: Supple Negative JVD Respiratory: Course Crepitus Bilaterally with Scattered Rhonchi Cardiovascular: S1 S2 Regular Rate Rhythm Grade 2/6 MILAGRO Gastrointestinal: Soft Benign Normal Bowel Sounds Ext: Trace Edema Labs: CBC, BMP 11/08/17 07:47 11/08/17 07:47 Blood test from this AM pending Assessment/Plan ASSESSMENT: 1. Acute exacerbation of chronic obstructive airway disease 2. Acute on chronic class I-II NYHA classification LV congestive failure related to diastolic LV dysfunction, resolving 3. 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 Aortic stenosis moderate in severity SHEREEN of 0.8 cm2, on echocardiography performed October, 5. HTN 6. Hyperglycemia, DM no history 7. Hypercholestrolemia 8. Pulmonary HTN, probably multi-factorial (diastolic LV dysfunction, and chronic obstructive airway disease) 9. Neutropenia PLAN: 1. Continue Bystolic therapy with caution 2. Continue Norvasc 3. Continue Diovan 4. Continue Lasix with caution 5. Continue Ranexa 6. Antibiotics, steroids and bronchodilators as per the pulmonary team 7. Obtain lipid profile and therapy initiation accordingly 8. Repeat Echocardiography to evaluate LV function and valvular pathology 9. Pharmacologic MPI study for evaluation of the above noted presentation to be scheduled for the AM Tera Tyson M.D.
[2017-11-09 08:31] LABS: HEMATOCRIT 33.1 % (32.4-45.2); MCH 30.5 pg (25.7-33.7); MCHC 33.3 g/dl (32.0-36.0); MEAN CELL VOLUME 91.8 fl (80-96); MEAN PLT VOLUME 10.7 fl (7.5-11.1); PLATELET COUNT 263 K/MM3 (134-434); RBC 3.61 M/mm3 (3.60-5.2); RDW 13.3 % (11.6-15.6); WHITE BLOOD COUNT 4.1 K/mm3 (4.0-10.8)
[2017-11-09 08:53] LABS: ANION GAP 11 (8-16); BLOOD UREA NITROGEN 25 mg/dl (7-18); CALCIUM 8.7 mg/dl (8.4-10.2); CHLORIDE 98 mmol/L (98-107); CO2 28 mmol/L (22-28); CREATININE 0.7 mg/dl (0.6-1.3); GLUCOSE,RANDOM 146 mg/dl (74-106); POTASSIUM 4.2 mmol/L (3.5-5.1); SODIUM 137 mmol/L (136-145)
[2017-11-09 08:58] LABS: CHOLESTEROL 219 mg/dl; HDL CHOLESTEROL 60 mg/dl (29-89); LDL CHOLESTEROL (ONLY DFH) 141 mg/dl; TRIGLYCERIDES 89 mg/dl (35-160)
[2017-11-09] MEDS: NEBIVOLOL 5 MG TABLET (FP) PO SCH ×2 (10:04→21:47)
[2017-11-09] MEDS: amLODIPine BESYLATE 5 MG TABLET (FP) PO SCH (10:05)
[2017-11-09] MEDS: ASPIRIN COATED 81 MG TABLET.EC PO SCH (10:05)
[2017-11-09] MEDS: VALSARTAN 80 MG TABLET (UD) PO SCH (10:05)
[2017-11-09] MEDS: RANOLAZINE E.R. 500 MG TABLET (FP) PO SCH ×2 (10:05→21:47)
[2017-11-09] MEDS: FUROSEMIDE 20 MG TABLET (FP) PO SCH (10:05)
[2017-11-09] MEDS: HEPARIN NA (PORCINE) 5,000 UNITS/ML 1ML VIAL SQ SCH ×2 (10:06→21:48)
[2017-11-09] MEDS: AZITHROMYCIN IVPB 500 MG in DEXTROSE 5%-WATER - 250 ML IVPB SCH (10:07)
[2017-11-09] MEDS: BUDESONIDE/FORMETEROL FUMARATE 80/4.5 mcg INHALER IH SCH ×2 (10:08→21:51)
[2017-11-09 10:31] LABS: PLATELET ESTIMATE ADEQUATE
--- NOTE | 2017-11-09 10:37 | PN ---
Physical Exam: SUBJECTIVE: Patient seen and examined. States she feels tired from lack of sleep. OBJECTIVE: Vital Signs Period Temp Pulse Resp BP Sys/Huitron Pulse Ox Last 24 Hr 97.4 F-98.1 F 70-98 19-20 135-145/46-68 90-94 GENERAL: The patient is awake, alert, and fully oriented, in no acute distress. LUNGS: Breath sounds equal, diminished bilaterally, mild wheezes, no crackles, no accessory muscle use. Exertional dyspnea present. HEART: Regular rate and rhythm, S1, S2 without murmur, rub or gallop. ABDOMEN: SNTND EXTREMITIES: 2+ pulses, warm, well-perfused, no edema. NEUROLOGICAL: Cranial nerves II through XII grossly intact. Normal speech, gait not observed. PSYCH: Normal mood, normal affect. Laboratory Results - last 24 hr 11/09/17 11/09/17 11/09/17 06:00 06:00 06:00 WBC 4.1 D RBC 3.61 Hgb 11.0 Hct 33.1 MCV 91.8 MCH 30.5 MCHC 33.3 RDW 13.3 Plt Count 263 MPV 10.7 Neutrophils % No Result Required. Neutrophils % (Manual) 26.0 L Band Neutrophils % 4.0 Lymphocytes % No Result Required. Lymphocytes % (Manual) 24.0 Monocytes % (Manual) 40 H* Eosinophils % (Manual) 2.0 Platelet Estimate Adequate Sodium 137 Potassium 4.2 Chloride 98 Carbon Dioxide 28 Anion Gap 11 BUN 25 H D Creatinine 0.7 Random Glucose 146 H Calcium 8.7 Triglycerides 89 Cholesterol 219 Total LDL Cholesterol 141 HDL Cholesterol 60 Active Medications Generic Name Dose Route Start Last Admin Trade Name Quan PRN Reason Stop Dose Admin Albuterol/Ipratropium 1 amp 11/07/17 20:00 11/09/17 08:00 Duoneb - NEB 1 amp RQID PATRICIA Administration Amlodipine Besylate 5 mg 11/08/17 18:20 11/09/17 10:05 Norvasc - PO 5 mg DAILY PATR[facility] Administration Aspirin 81 mg 11/09/17 10:00 11/09/17 10:05 Ecotrin - PO 81 mg DAILY PATR[facility]IA Administration Budesonide/Formoterol Fumarate 2 puff 11/08/17 10:00 11/09/17 10:08 Symbicort 80/4.5mcg - IH 2 puff BID PAT[facility] Administration Cefepime HCl 1 gm 11/08/17 18:00 11/09/17 10:07 Maxipime 1gm Ivpb Pre-Docked IVPB 1 gm Q8H-IV [facility] Administration Furosemide 20 mg 11/09/17 10:00 11/09/17 10:05 Lasix - PO 20 mg DAILY [facility] Administration Heparin Sodium (Porcine) 5,000 unit 11/08/17 10:00 11/09/17 10:06 Heparin - SQ 5,000 unit BID [facility] Administration Azithromycin 500 mg/ Dextrose 250 mls @ 250 mls/hr 11/08/17 10:00 11/09/17 10 :07 IVPB 250 mls/hr DAILY [facility] Administration Methylprednisolone Sodium Succinate 40 mg 11/07/17 21:00 11/09/17 09:05 Solu-Medrol - IVPUSH 40 mg Q6H-IV [facility] Administration Nebivolol 5 mg 11/08/17 10:00 11/09/17 10:04 Bystolic - PO 5 mg BID PATR[facility] Administration Ranolazine 500 mg 11/08/17 22:00 11/09/17 10:05 Ranexa - PO 500 mg BID PATR[facility]IA Administration Valsartan 80 mg 11/09/17 10:00 11/09/17 10:05 Diovan - PO 80 mg DAILY [facility] Administration ASSESSMENT/PLAN: A: 82-year-old woman with past medical history of hypertension and COPD who is dependent on home oxygen who was admitted for COPD exacerbation. P: COPD exacerbation - CT of the chest as above - Methylprednisone 40 mg every 6 hours IV - Combivent 4 times a day - Influenza swabs negative - Pulmonology following Bronchitis - Methylprednisone 40 mg every 6 hours IV - Combivent 4 times a day - Cefepime - Zithromax - ID following - Pulmonology following Neutropenia - Cefepime - Zithromax - ID following Chest pain - Ranexa - Nebivolol - tele - echo pending - Stress in AM - Start Lipitor 10mg - Cards following HTN - Norvasc - Nebivolol HLD - 219/141/60/89 - Start Lipitor 10mg - lifestyle modifications discussed F/E/N - Low Na diet - Replete prn PPX - sqh Dispo- requires continued inpatient evaluation Visit type - Emergency Visit Emergency Visit: Yes ED Registration Date: 11/07/17 Care time: The patient presented to the Emergency Department on the above date and was hospitalized for further evaluation of their emergent condition. - New Patient This patient is new to me today: No - Critical Care Critical Care patient: No
[2017-11-09] MEDS: ATORVASTATIN CA 10 MG TABLET (FP) PO SCH (21:47)
[2017-11-10] MEDS: CEFEPIME 1 GM/100 ML BAG PRE-DOCKED IVPB SCH ×2 (01:08→16:26)
[2017-11-10] MEDS: methylPREDNISolone NA SUCC 40 MG/1 ML VIAL IVPUSH SCH ×4 (03:02→20:51)
--- NOTE | 2017-11-10 07:38 | PN ---
Progress Note, Physician History of Present Illness: pulmonary alert feeling better,less dyspneic,for echo and stress test today - Current Medication List Current Medications: Active Medications Albuterol/Ipratropium (Duoneb -) 1 amp NEB RQID [facility] Last Admin: 11/09/17 21:45 Dose: 1 amp Amlodipine Besylate (Norvasc -) 5 mg PO DAILY [facility] Last Admin: 11/09/17 10:05 Dose: 5 mg Aspirin (Ecotrin -) 81 mg PO DAILY [facility] Last Admin: 11/09/17 10:05 Dose: 81 mg Atorvastatin Calcium (Lipitor -) 10 mg PO HS [facility] Last Admin: 11/09/17 21:47 Dose: 10 mg Budesonide/Formoterol Fumarate (Symbicort 80/4.5mcg -) 2 puff IH BID [facility] Last Admin: 11/09/17 21:51 Dose: 2 puff Cefepime HCl (Maxipime 1gm Ivpb Pre-Docked) 1 gm IVPB Q8H-IV [facility] Last Admin: 11/10/17 01:08 Dose: 1 gm Furosemide (Lasix -) 20 mg PO DAILY [facility] Last Admin: 11/09/17 10:05 Dose: 20 mg Heparin Sodium (Porcine) (Heparin -) 5,000 unit SQ BID [facility] Last Admin: 11/09/17 21:48 Dose: 5,000 unit Azithromycin 500 mg/ Dextrose 250 mls @ 250 mls/hr IVPB DAILY [facility] Last Admin: 11/09/17 10:07 Dose: 250 mls/hr Methylprednisolone Sodium Succinate (Solu-Medrol -) 40 mg IVPUSH Q6H-IV [facility] Last Admin: 11/10/17 03:02 Dose: 40 mg Nebivolol (Bystolic -) 5 mg PO BID [facility] Last Admin: 11/09/17 21:47 Dose: 5 mg Ranolazine (Ranexa -) 500 mg PO BID [facility] Last Admin: 11/09/17 21:47 Dose: 500 mg Valsartan (Diovan -) 80 mg PO DAILY [facility] Last Admin: 11/09/17 10:05 Dose: 80 mg - Objective Vital Signs: Vital Signs Temperature 98.0 F 11/10/17 06:00 Pulse Rate 69 11/10/17 06:00 Respiratory Rate 20 11/10/17 06:00 Blood Pressure 140/65 11/10/17 06:00 O2 Sat by Pulse Oximetry (%) 94 L 11/10/17 06:24 Constitutional: Yes: Well Nourished, Calm Eyes: Yes: WNL, Other Neck: Yes: WNL Cardiovascular: Yes: Regular Rate and Rhythm, S1, S2 Respiratory: Yes: Rales (biubasailar crackles) Gastrointestinal: Yes: Normal Bowel Sounds, Soft Extremities: Yes: WNL Edema: No Labs: Problem List - Problems (1) Leukopenia Code(s): D72.819 - DECREASED WHITE BLOOD CELL COUNT, UNSPECIFIED (2) COPD exacerbation Code(s): J44.1 - CHRONIC OBSTRUCTIVE PULMONARY DISEASE W (ACUTE) EXACERBATION (3) Acute on chronic respiratory failure with hypoxemia Code(s): J96.21 - ACUTE AND CHRONIC RESPIRATORY FAILURE WITH HYPOXIA (4) Hypoxia Code(s): R09.02 - HYPOXEMIA (5) Lung nodule Code(s): R91.1 - SOLITARY PULMONARY NODULE Assessment/Plan IMP ACUTE ON CHRONIC HYPOXEMIC RESPIRATORY FAILURE improving COPD EXACERBATION LIKELY VIRAL BRONCHITIS RUL NODULE STABLE LEUKOPENIA PLAN ABX PER ID IV STEROIDS SUPPLEMENTAL O2 INHALED BRONCHODILATORS MONITOR CBC ECHO,NUCLEAR STRESS TEST TODAY DR ARANDA Problem List - Problems (1) Leukopenia Code(s): D72.819 - DECREASED WHITE BLOOD CELL COUNT, UNSPECIFIED (2) COPD exacerbation Code(s): J44.1 - CHRONIC OBSTRUCTIVE PULMONARY DISEASE W (ACUTE) EXACERBATION (3) Acute on chronic respiratory failure with hypoxemia Code(s): J96.21 - ACUTE AND CHRONIC RESPIRATORY FAILURE WITH HYPOXIA (4) Hypoxia Code(s): R09.02 - HYPOXEMIA (5) Lung nodule Code(s): R91.1 - SOLITARY PULMONARY NODULE
[2017-11-10] MEDS ORDERED: PT OWN MED DRAWER 7, Y5N ONE ×3 (08:25→21:25)
--- NOTE | 2017-11-10 08:29 | PN ---
Physical Exam: SUBJECTIVE: Patient seen and examined, pending echo and stress test @ [facility] OBJECTIVE:82-year-old woman with past medical history of hypertension and COPD who is dependent on home oxygen who was admitted for COPD exacerbation. Vital Signs Period Temp Pulse Resp BP Sys/Huitron Pulse Ox Last 24 Hr 98.0 F-98.3 F 56-69 16-20 133-140/50-71 90-94 GENERAL: The patient is awake, alert, and fully oriented, in no acute distress. HEAD: Normal with no signs of trauma. EYES: PERRL, extraocular movements intact, sclera anicteric, conjunctiva clear. No ptosis. ENT: Ears normal, nares patent, oropharynx clear without exudates, moist mucous membranes. NECK: Trachea midline, full range of motion, supple. LUNGS: Breath sounds equal, bilateral inspiratory wheeze, diminished to base, moist cough, no crackles, no accessory muscle use. HEART: Regular rate and rhythm, S1, S2 without murmur, rub or gallop. ABDOMEN: Soft, nontender, nondistended, normoactive bowel sounds, no guarding, no rebound, no hepatosplenomegaly, no masses. EXTREMITIES: 2+ pulses, warm, well-perfused, no edema. NEUROLOGICAL: Cranial nerves II through XII grossly intact. Normal speech, gait not observed. PSYCH: Normal mood, normal affect. SKIN: Warm, dry, normal turgor, no rashes or lesions noted Laboratory Results - last 24 hr 11/09/17 11/09/17 11/09/17 06:00 06:00 06:00 WBC 4.1 D RBC 3.61 Hgb 11.0 Hct 33.1 MCV 91.8 MCH 30.5 MCHC 33.3 RDW 13.3 Plt Count 263 MPV 10.7 Neutrophils % No Result Required. Neutrophils % (Manual) 26.0 L Band Neutrophils % 4.0 Lymphocytes % No Result Required. Lymphocytes % (Manual) 24.0 Monocytes % (Manual) 40 H* Eosinophils % (Manual) 2.0 Platelet Estimate Adequate Sodium 137 Potassium 4.2 Chloride 98 Carbon Dioxide 28 Anion Gap 11 BUN 25 H D Creatinine 0.7 Random Glucose 146 H Calcium 8.7 Triglycerides 89 Cholesterol 219 Total LDL Cholesterol 141 HDL Cholesterol 60 Active Medications Generic Name Dose Route Start Last Admin Trade Name Freq PRN Reason Stop Dose Admin Albuterol/Ipratropium 1 amp 11/07/17 20:00 11/09/17 21:45 Duoneb - NEB 1 amp RQID PATRICIA Administration Amlodipine Besylate 5 mg 11/08/17 18:20 11/09/17 10:05 Norvasc - PO 5 mg DAILY PATRICIA Administration Aspirin 81 mg 11/09/17 10:00 11/09/17 10:05 Ecotrin - PO 81 mg DAILY PATRICIA Administration Atorvastatin Calcium 10 mg 11/09/17 22:00 11/09/17 21:47 Lipitor - PO 10 mg HS PATRICIA Administration Budesonide/Formoterol Fumarate 2 puff 11/08/17 10:00 11/09/17 21:51 Symbicort 80/4.5mcg - IH 2 puff BID PATRICIA Administration Cefepime HCl 1 gm 11/08/17 18:00 11/10/17 01:08 Maxipime 1gm Ivpb Pre-Docked IVPB 1 gm Q8H-IV PATRICIA Administration Furosemide 20 mg 11/09/17 10:00 11/09/17 10:05 Lasix - PO 20 mg DAILY PATRICIA Administration Heparin Sodium (Porcine) 5,000 unit 11/08/17 10:00 11/09/17 21:48 Heparin - SQ 5,000 unit BID PATRICIA Administration Azithromycin 500 mg/ Dextrose 250 mls @ 250 mls/hr 11/08/17 10:00 11/09/17 10 :07 IVPB 250 mls/hr DAILY PATRICIA Administration Methylprednisolone Sodium Succinate 40 mg 11/07/17 21:00 11/10/17 03:02 Solu-Medrol - IVPUSH 40 mg Q6H-IV PATRICIA Administration Nebivolol 5 mg 11/08/17 10:00 11/09/17 21:47 Bystolic - PO 5 mg BID PATRICIA Administration Ranolazine 500 mg 11/08/17 22:00 11/09/17 21:47 Ranexa - PO 500 mg BID PATRICIA Administration Valsartan 80 mg 11/09/17 10:00 11/09/17 10:05 Diovan - PO 80 mg DAILY PATRICIA Administration Microbiology 11/08/17 11:20 Blood - Peripheral Venous Blood Culture - Preliminary NO GROWTH OBTAINED AFTER 48 HOURS, INCUBATION TO CONTINUE FOR 3 DAYS. 11/08/17 11:15 Blood - Peripheral Venous Blood Culture - Preliminary NO GROWTH OBTAINED AFTER 48 HOURS, INCUBATION TO CONTINUE FOR 3 DAYS. 11/07/17 22:00 Urine - Urine Clean Catch Urine Culture - Final NO GROWTH OBTAINED 11/07/17 17:45 Nasopharyngeal Swab Influenza Types A,B Antigen (DAMIÁN) - Final 11/07/17 17:45 Nasopharyngeal Swab - Final Imaging: CT chest without contrast. Indication: Pneumonia. Technique: Axial noncontrast chest CT with coronal and sagittal reformations. Comparison: 11/05/[address] Findings: Large airways of the central tracheobronchial tree are patent. There is nodularity along the dependent wall of the trachea and right mainstem bronchus, most likely secretions. There is wall thickening along the segmental and subsegmental airways throughout, increased since prior chest CT, reflecting nonspecific airways disease. Moderately severe centrilobular emphysematous changes. There are ill-defined hazy centrilobular groundglass nodular opacities in the left upper lobe, to lesser extent in the anterior right upper lobe and right middle lobe. There are ill-defined centrilobular opacities in the right lung base. There are subsegmental opacities in both lung bases, right more than left favored to represent atelectasis. There is new 10 mm pleural based nodular opacity in the right lung base (image 71 of series 3), which may represent focal atelectatic change. Approximately 2.0 x 1.8 cm right upper lobe nodule with eccentric coarse calcification appears unchanged in size and configuration from the prior CT. There are additional bilateral solid noncalcified nodular opacities, similar in size to 11/05/2016. There are trace layering pleural effusions. There is no pneumothorax. The axillary regions are unremarkable. No pathologically enlarged mediastinal lymph nodes by CT size criteria. There is no evidence of bulky hilar lymphadenopathy, within the limitations of no IV contrast. Shotty subcentimeter pretracheal mediastinal lymph nodes aren't right hilar lymph nodes are similar in size to the prior exam. The heart is not enlarged. Trace pericardial fluid may be physiologic. There is mild to moderate coronary artery calcific atherosclerosis. Normal caliber thoracic aorta with calcific atherosclerosis along the arch and takeoff of the great vessels. Main pulmonary artery measures 30 mm in diameter. There is a small hiatal hernia. There is no mass in the adrenal glands. There are small hypoattenuating lesions in the upper poles of the kidneys which are incompletely visualized, likely cysts. There is osseous demineralization. Chronic anterior wedging compression fracture of the T12 vertebral body with moderate to severe loss of height is unchanged. Impression: 1. Ill-defined bilateral groundglass opacities as above, presumably infectious. Follow-up chest CT is recommended in 3 months. Trace layering bilateral pleural effusions. 2. Bronchial wall thickening along bilateral segmental and subsegmental airways is increased since prior chest CT, reflecting nonspecific airways disease. Please correlate clinically for active bronchitis. 3. Moderately severe centrilobular emphysematous changes. Previously described solid bilateral pulmonary nodules measuring up to 2.0 cm in the right upper lobe are unchanged in size. Continued follow-up is suggested. 4. Prominent main pulmonary artery for degree of emphysematous change. Please correlate clinically for pulmonary artery hypertension. Reported By: Amy Cerna DO 11/08/17 1120 ASSESSMENT/PLAN: 1) Pulm COPD exacerbation - continue Methylprednisone 40 mg every 6 hours IV - continue duonebs qid - keep spo2 above 92% with supplemental O2 - Pulm Dr Morris following PNA - Cefepime and Zithromax (11/08 - 11/10) transitioned to levaquin as per ID - ID, Dr Estrella consulted and following 2) cardiovascular Chest pain resolved - no events on cardiac monitoring - continue Ranexa hypertension - continue Nebivolol and norvasc, b/p at goal - echo and stress pending hyperlipidemia - continue Lipitor 10mg F/E/N - Low Na diet - Replete prn PPX - sqh Dispo- requires continued inpatient evaluation Visit type - Emergency Visit Emergency Visit: Yes ED Registration Date: 11/07/17 Care time: The patient presented to the Emergency Department on the above date and was hospitalized for further evaluation of their emergent condition. - New Patient This patient is new to me today: Yes Date on this admission: 11/10/17 - Critical Care Critical Care patient: No - Discharge Referral Referred to [facility] No
[2017-11-10] MEDS: ALBUTEROL SO4 2.5/IPRATROPIUM 0.5 INH SOL 3 ML VIAL.NEB. NEB SCH ×5 (08:37→20:51)
[2017-11-10] MEDS: BUDESONIDE/FORMETEROL FUMARATE 80/4.5 mcg INHALER IH SCH ×2 (09:26→21:26)
[2017-11-10] MEDS: amLODIPine BESYLATE 5 MG TABLET (FP) PO SCH (09:26)
[2017-11-10] MEDS: ASPIRIN COATED 81 MG TABLET.EC PO SCH (09:26)
[2017-11-10 09:28] LABS: VENOUS PC02 50.6 mmHg (38-52); VENOUS PH 7.37 (7.32-7.42)
[2017-11-10 09:29] LABS: VENOUS PO2 50.9 mmHg (28-48)
[2017-11-10 09:33] LABS: HEMOGLOBIN 11.6 GM/dl (10.7-15.3); MCH 31.8 pg (25.7-33.7); MCHC 34.2 g/dl (32.0-36.0); MEAN CELL VOLUME 92.9 fl (80-96); MEAN PLT VOLUME 11.4 fl (7.5-11.1); PLATELET COUNT 283 K/MM3 (134-434); RBC 3.67 M/mm3 (3.60-5.2); RDW 13.5 % (11.6-15.6); WHITE BLOOD COUNT 9.3 K/mm3 (4.0-10.8)
[2017-11-10] MEDS ORDERED: REGADENOSON 0.4 MG/5 ML PRE-FILLED SYRINGE IVPUSH ONE (10:00)
[2017-11-10 10:01] LABS: ANION GAP 11 (8-16); BLOOD UREA NITROGEN 30 mg/dl (7-18); CALCIUM 8.6 mg/dl (8.4-10.2); CHLORIDE 99 mmol/L (98-107); CO2 29 mmol/L (22-28); CREATININE 0.8 mg/dl (0.6-1.3); GLUCOSE,RANDOM 137 mg/dl (74-106); POTASSIUM 4.1 mmol/L (3.5-5.1); SODIUM 139 mmol/L (136-145)
--- NOTE | 2017-11-10 10:10 | PN ---
Progress Note, Physician History of Present Illness: Awake, alert C/O occasional dry cough No c/o chest pain or dyspnea Appears slightly tachypneic at rest on nasal cannula No c/o fever/ chills Afebrile Leukopenia improved BC, urine c/s (-) - Current Medication List Current Medications: Active Medications Albuterol/Ipratropium (Duoneb -) 1 amp NEB RQID [facility] Last Admin: 11/10/17 08:37 Dose: 1 amp Amlodipine Besylate (Norvasc -) 5 mg PO DAILY [facility] Last Admin: 11/10/17 09:26 Dose: 5 mg Aspirin (Ecotrin -) 81 mg PO DAILY [facility] Last Admin: 11/10/17 09:26 Dose: 81 mg Atorvastatin Calcium (Lipitor -) 10 mg PO HS [facility] Last Admin: 11/09/17 21:47 Dose: 10 mg Budesonide/Formoterol Fumarate (Symbicort 80/4.5mcg -) 2 puff IH BID [facility] Last Admin: 11/10/17 09:26 Dose: 2 puff Cefepime HCl (Maxipime 1gm Ivpb Pre-Docked) 1 gm IVPB Q8H-IV [facility] Last Admin: 11/10/17 01:08 Dose: 1 gm Furosemide (Lasix -) 20 mg PO DAILY [facility] Last Admin: 11/09/17 10:05 Dose: 20 mg Heparin Sodium (Porcine) (Heparin -) 5,000 unit SQ BID [facility] Last Admin: 11/09/17 21:48 Dose: 5,000 unit Azithromycin 500 mg/ Dextrose 250 mls @ 250 mls/hr IVPB DAILY [facility] Last Admin: 11/09/17 10:07 Dose: 250 mls/hr Methylprednisolone Sodium Succinate (Solu-Medrol -) 40 mg IVPUSH Q6H-IV [facility] Last Admin: 11/10/17 09:26 Dose: 40 mg Nebivolol (Bystolic -) 5 mg PO BID [facility] Last Admin: 11/09/17 21:47 Dose: 5 mg Ranolazine (Ranexa -) 500 mg PO BID [facility] Last Admin: 11/09/17 21:47 Dose: 500 mg Valsartan (Diovan -) 80 mg PO DAILY [facility] Last Admin: 11/09/17 10:05 Dose: 80 mg - Objective Vital Signs: Vital Signs Temperature 98.0 F 11/10/17 06:00 Pulse Rate 64 11/10/17 09:29 Respiratory Rate 20 11/10/17 09:29 Blood Pressure 150/65 11/10/17 09:29 O2 Sat by Pulse Oximetry (%) 92 L 11/10/17 09:01 Constitutional: Yes: No Distress Cardiovascular: Yes: Regular Rate and Rhythm, S1, S2 Respiratory: Yes: Other (few crepitations at bases) Gastrointestinal: Yes: Normal Bowel Sounds, Soft. No: Tenderness Edema: LLE: 1+, RLE: 1+ Labs: CBC, BMP 11/10/17 06:45 11/10/17 06:45 INR, PTT INR 1.20 (0.82-1.09) 11/07/17 14:50 Assessment/Plan Probable viral URI/ possible pneumonitis Acute exacerbation COPD Leukopenia/ lymphocytosis/ monocytosis likely secondary to viral illness D/C IV antibiotics PO Levaquin x 7d
[2017-11-10] MEDS: VALSARTAN 80 MG TABLET (UD) PO SCH (15:16)
[2017-11-10] MEDS: NEBIVOLOL 5 MG TABLET (FP) PO SCH ×2 (15:17→21:27)
[2017-11-10] MEDS: FUROSEMIDE 20 MG TABLET (FP) PO SCH (15:18)
[2017-11-10] MEDS: LEVOFLOXACIN 250 MG TABLET (FP) PO SCH (15:19)
[2017-11-10] MEDS: RANOLAZINE E.R. 500 MG TABLET (FP) PO SCH ×2 (15:20→21:27)
[2017-11-10] MEDS: HEPARIN NA (PORCINE) 5,000 UNITS/ML 1ML VIAL SQ SCH ×2 (15:21→21:27)
--- NOTE | 2017-11-10 15:44 | EKG ---
Test Reason : Blood Pressure : / mmHG Vent. Rate : 069 BPM Atrial Rate : 069 BPM P-R Int : 152 ms QRS Dur : 076 ms QT Int : 406 ms P-R-T Axes : 052 023 034 degrees QTc Int : 435 ms NORMAL SINUS RHYTHM WITH SINUS ARRHYTHMIA NORMAL ECG WHEN COMPARED WITH ECG OF 01-NOV-2016 17:32, NO SIGNIFICANT CHANGE WAS FOUND Confirmed by BILL ISBELL MD ([id number]) on 11/10/2017 3:44:35 PM Referred By: Ernesto WALSH Confirmed By:BILL ISBELL MD
[2017-11-10] MEDS: AZITHROMYCIN IVPB 500 MG in DEXTROSE 5%-WATER - 250 ML IVPB SCH (16:26)
--- NOTE | 2017-11-10 16:37 | EKG ---
Test Reason : Blood Pressure : / mmHG Vent. Rate : 056 BPM Atrial Rate : 056 BPM P-R Int : 156 ms QRS Dur : 090 ms QT Int : 472 ms P-R-T Axes : 053 023 049 degrees QTc Int : 455 ms SINUS BRADYCARDIA WITH SINUS ARRHYTHMIA OTHERWISE NORMAL ECG WHEN COMPARED WITH ECG OF 07-NOV-2017 14:37, NO SIGNIFICANT CHANGE WAS FOUND BASELINE ARTIFACT Confirmed by ISIDRO ROBERTS, KATHLEEN ([id number]) on 11/10/2017 4:37:40 PM Referred By: KIMBERLEE Confirmed By:KATHLEEN FELIX MD
--- NOTE | 2017-11-10 16:51 | PN ---
Progress Note, Physician History of Present Illness: No further chest pain and dyspnea has improved. Results of echo and pharm stress relayed to patient. - Current Medication List Current Medications: Active Medications Albuterol/Ipratropium (Duoneb -) 1 amp NEB RQID [facility] Last Admin: 11/10/17 15:24 Dose: 1 amp Amlodipine Besylate (Norvasc -) 5 mg PO DAILY [facility] Last Admin: 11/10/17 09:26 Dose: 5 mg Aspirin (Ecotrin -) 81 mg PO DAILY [facility] Last Admin: 11/10/17 09:26 Dose: 81 mg Atorvastatin Calcium (Lipitor -) 10 mg PO HS [facility] Last Admin: 11/09/17 21:47 Dose: 10 mg Budesonide/Formoterol Fumarate (Symbicort 80/4.5mcg -) 2 puff IH BID [facility] Last Admin: 11/10/17 09:26 Dose: 2 puff Furosemide (Lasix -) 20 mg PO DAILY [facility] Last Admin: 11/10/17 15:18 Dose: 20 mg Heparin Sodium (Porcine) (Heparin -) 5,000 unit SQ BID [facility] Last Admin: 11/10/17 15:21 Dose: 5,000 unit Levofloxacin (Levaquin -) 250 mg PO DAILY [facility] Last Admin: 11/10/17 15:19 Dose: 250 mg Methylprednisolone Sodium Succinate (Solu-Medrol -) 40 mg IVPUSH Q6H-IV [facility] Last Admin: 11/10/17 15:22 Dose: 40 mg Nebivolol (Bystolic -) 5 mg PO BID [facility] Last Admin: 11/10/17 15:17 Dose: 5 mg Ranolazine (Ranexa -) 500 mg PO BID [facility] Last Admin: 11/10/17 15:20 Dose: 500 mg Valsartan (Diovan -) 80 mg PO DAILY [facility] Last Admin: 11/10/17 15:16 Dose: 80 mg - Objective Vital Signs: Vital Signs Temperature 98.1 F 11/10/17 14:33 Pulse Rate 67 11/10/17 14:33 Respiratory Rate 18 11/10/17 14:33 Blood Pressure 151/66 11/10/17 14:33 O2 Sat by Pulse Oximetry (%) 100 11/10/17 14:33 Constitutional: Yes: No Distress, Calm Neck: Yes: Supple Cardiovascular: Yes: Regular Rate and Rhythm, Murmur (2/6 SM) Respiratory: Yes: Regular, Diminished Gastrointestinal: Yes: Normal Bowel Sounds, Soft Edema: No Labs: CBC, BMP 11/10/17 06:45 11/10/17 06:45 INR, PTT INR 1.20 (0.82-1.09) 11/07/17 14:50 Problem List - Problems (1) Hypertensive cardiomyopathy Code(s): I11.9 - HYPERTENSIVE HEART DISEASE WITHOUT HEART FAILURE; I43 - CARDIOMYOPATHY IN DISEASES CLASSIFIED ELSEWHERE Qualifiers: Heart failure presence: without heart failure Qualified Code(s): I11.9 - Hypertensive heart disease without heart failure; I43 - Cardiomyopathy in diseases classified elsewhere; I43 - Cardiomyopathy in diseases classified elsewhere; I43 - Cardiomyopathy in diseases classified elsewhere; I43 - Cardiomyopathy in diseases classified elsewhere (2) Hyperlipidemia Code(s): E78.5 - HYPERLIPIDEMIA, UNSPECIFIED Qualifiers: Hyperlipidemia type: pure hypercholesterolemia Qualified Code(s): E78.00 - Pure hypercholesterolemia, unspecified; E78.0 - Pure hypercholesterolemia (3) Diastolic 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 Acute exacerbation of chronic obstructive airway disease with acute bronchitis 2. Acute on chronic class I-II NYHA classification LV congestive failure related to diastolic LV dysfunction, resolving 3. 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 HTN 5. Hyperglycemia, DM no history 6. Hypercholestrolemia 7. Pulmonary HTN, probably multi-factorial (diastolic LV dysfunction and chronic obstructive airway disease) 8. Neutropenia PLAN: 1. Continue Bystolic 5 bid with caution 2. Continue Norvasc 5 qd 3. Continue Diovan 80 qd 4. Continue Lasix 20 qd with caution 5. Continue Ranexa 500 bid and ASA 81 qd 6. Antibiotics, IV steroids and bronchodilators as per the pulmonary team 7. Lipitor 10 qd initiated
[2017-11-10] MEDS: ATORVASTATIN CA 10 MG TABLET (FP) PO SCH (21:27)
[2017-11-11] MEDS: methylPREDNISolone NA SUCC 40 MG/1 ML VIAL IVPUSH SCH ×4 (03:00→21:32)
--- NOTE | 2017-11-11 07:15 | PN ---
Progress Note, Physician History of Present Illness: pulmonary alert,feeling better,less dyspneic. stress test negative,echo +pulmonary htn - Current Medication List Current Medications: Active Medications Albuterol/Ipratropium (Duoneb -) 1 amp NEB RQID [facility] Last Admin: 11/10/17 20:51 Dose: 1 amp Amlodipine Besylate (Norvasc -) 5 mg PO DAILY [facility] Last Admin: 11/10/17 09:26 Dose: 5 mg Aspirin (Ecotrin -) 81 mg PO DAILY [facility] Last Admin: 11/10/17 09:26 Dose: 81 mg Atorvastatin Calcium (Lipitor -) 10 mg PO HS [facility] Last Admin: 11/10/17 21:27 Dose: 10 mg Budesonide/Formoterol Fumarate (Symbicort 80/4.5mcg -) 2 puff IH BID [facility] Last Admin: 11/10/17 21:26 Dose: 2 puff Furosemide (Lasix -) 20 mg PO DAILY [facility] Last Admin: 11/10/17 15:18 Dose: 20 mg Heparin Sodium (Porcine) (Heparin -) 5,000 unit SQ BID [facility] Last Admin: 11/10/17 21:27 Dose: 5,000 unit Levofloxacin (Levaquin -) 250 mg PO DAILY [facility] Last Admin: 11/10/17 15:19 Dose: 250 mg Methylprednisolone Sodium Succinate (Solu-Medrol -) 40 mg IVPUSH Q6H-IV [facility] Last Admin: 11/11/17 03:00 Dose: 40 mg Nebivolol (Bystolic -) 5 mg PO BID [facility] Last Admin: 11/10/17 21:27 Dose: 5 mg Ranolazine (Ranexa -) 500 mg PO BID [facility] Last Admin: 11/10/17 21:27 Dose: 500 mg Valsartan (Diovan -) 80 mg PO DAILY [facility] Last Admin: 11/10/17 15:16 Dose: 80 mg - Objective Vital Signs: Vital Signs Temperature 98.3 F 11/11/17 06:00 Pulse Rate 63 11/11/17 06:00 Respiratory Rate 19 11/11/17 06:00 Blood Pressure 152/62 11/11/17 06:00 O2 Sat by Pulse Oximetry (%) 95 11/11/17 01:59 Constitutional: Yes: Well Nourished, Calm Eyes: Yes: WNL HENT: Yes: WNL Neck: Yes: WNL Cardiovascular: Yes: Regular Rate and Rhythm, S1, S2 Respiratory: Yes: Diminished Gastrointestinal: Yes: Normal Bowel Sounds, Soft Extremities: Yes: WNL Edema: No Labs: CBC, BMP Problem List - Problems (1) Leukopenia Code(s): D72.819 - DECREASED WHITE BLOOD CELL COUNT, UNSPECIFIED (2) COPD exacerbation Code(s): J44.1 - CHRONIC OBSTRUCTIVE PULMONARY DISEASE W (ACUTE) EXACERBATION (3) Acute on chronic respiratory failure with hypoxemia Code(s): J96.21 - ACUTE AND CHRONIC RESPIRATORY FAILURE WITH HYPOXIA (4) Hypoxia Code(s): R09.02 - HYPOXEMIA (5) Lung nodule Code(s): R91.1 - SOLITARY PULMONARY NODULE Assessment/Plan IMP ACUTE ON CHRONIC HYPOXEMIC RESPIRATORY FAILURE improving COPD EXACERBATION LIKELY VIRAL BRONCHITIS RUL NODULE STABLE LEUKOPENIA IMPROVED PLAN ABX PER ID STEROIDS TAPER SUPPLEMENTAL O2 INHALED BRONCHODILATORS DR ARANDA Problem List - Problems (1) Leukopenia Code(s): D72.819 - DECREASED WHITE BLOOD CELL COUNT, UNSPECIFIED (2) COPD exacerbation Code(s): J44.1 - CHRONIC OBSTRUCTIVE PULMONARY DISEASE W (ACUTE) EXACERBATION (3) Acute on chronic respiratory failure with hypoxemia Code(s): J96.21 - ACUTE AND CHRONIC RESPIRATORY FAILURE WITH HYPOXIA (4) Hypoxia Code(s): R09.02 - HYPOXEMIA (5) Lung nodule Code(s): R91.1 - SOLITARY PULMONARY NODULE
[2017-11-11 08:26] LABS: HEMATOCRIT 39.9 % (32.4-45.2); HEMOGLOBIN 13.1 GM/dl (10.7-15.3); RDW 13.5 % (11.6-15.6)
[2017-11-11] MEDS: ALBUTEROL SO4 2.5/IPRATROPIUM 0.5 INH SOL 3 ML VIAL.NEB. NEB SCH ×4 (08:30→20:03)
--- NOTE | 2017-11-11 09:02 | PN ---
Physical Exam: SUBJECTIVE: Patient seen and examined, reports feeling much improved, sitting in bedside chair, denies any chest pain, denies any dyspnea upon exertion. OBJECTIVE: patient is a 82-year-old woman with past medical history of hypertension and COPD ( dependent on home oxygen) admitted for COPD exacerbation and PNA Vital Signs Period Temp Pulse Resp BP Sys/Huitron Pulse Ox Last 24 Hr 97.6 F-98.3 F 55-67 18-20 133-155/53-71 94-100 GENERAL: The patient is awake, alert, and fully oriented, in no acute distress. HEAD: Normal with no signs of trauma. EYES: PERRL, extraocular movements intact, sclera anicteric, conjunctiva clear. No ptosis. ENT: Ears normal, nares patent, oropharynx clear without exudates, moist mucous membranes. NECK: Trachea midline, full range of motion, supple. LUNGS: Breath sounds equal, clear to auscultation bilaterally, diminished to base, no wheezes, no crackles, no accessory muscle use. HEART: Regular rate and rhythm, S1, S2 without murmur, rub or gallop. ABDOMEN: Soft, nontender, nondistended, normoactive bowel sounds, no guarding, no rebound, no hepatosplenomegaly, no masses. EXTREMITIES: 2+ pulses, warm, well-perfused, no edema. NEUROLOGICAL: Cranial nerves II through XII grossly intact. Normal speech, gait not observed. PSYCH: Normal mood, normal affect. SKIN: Warm, dry, normal turgor, no rashes or lesions noted Laboratory Results - last 24 hr 11/07/17 11/09/17 11/10/17 17:45 06:00 06:45 WBC 9.3 D RBC 3.67 Hgb 11.6 Hct 34.0 MCV 92.9 MCH 31.8 MCHC 34.2 RDW 13.5 Plt Count 283 MPV 11.4 H Neutrophils % No Result Required. Neutrophils % (Manual) 26.0 L Band Neutrophils % 17.0 H Lymphocytes % No Result Required. Lymphocytes % (Manual) 22.0 Monocytes % (Manual) 16 H* Myelocytes % (Man) 4 H 8 H Metamyelocytes 9 H Differential Comment Many large platelets VBG pH 7.37 POC VBG pCO2 50.6 POC VBG pO2 50.9 H D Mixed VBG HCO3 28.8 H Sodium Potassium Chloride Carbon Dioxide Anion Gap BUN Creatinine Random Glucose Calcium 11/10/17 06:45 WBC RBC Hgb Hct MCV MCH MCHC RDW Plt Count MPV Neutrophils % Neutrophils % (Manual) Band Neutrophils % Lymphocytes % Lymphocytes % (Manual) Monocytes % (Manual) Myelocytes % (Man) Metamyelocytes Differential Comment VBG pH POC VBG pCO2 POC VBG pO2 Mixed VBG HCO3 Sodium 139 Potassium 4.1 Chloride 99 Carbon Dioxide 29 H Anion Gap 11 BUN 30 H Creatinine 0.8 Random Glucose 137 H Calcium 8.6 Active Medications Generic Name Dose Route Start Last Admin Trade Name Freq PRN Reason Stop Dose Admin Albuterol/Ipratropium 1 amp 11/07/17 20:00 11/11/17 08:30 Duoneb - NEB 1 amp RQID PATRICIA Administration Amlodipine Besylate 5 mg 11/08/17 18:20 11/10/17 09:26 Norvasc - PO 5 mg DAILY PATRICIA Administration Aspirin 81 mg 11/09/17 10:00 11/10/17 09:26 Ecotrin - PO 81 mg DAILY PATRICIA Administration Atorvastatin Calcium 10 mg 11/09/17 22:00 11/10/17 21:27 Lipitor - PO 10 mg HS PATRICIA Administration Budesonide/Formoterol Fumarate 2 puff 11/08/17 10:00 11/10/17 21:26 Symbicort 80/4.5mcg - IH 2 puff BID PATRICIA Administration Furosemide 20 mg 11/09/17 10:00 11/10/17 15:18 Lasix - PO 20 mg DAILY PATRICIA Administration Heparin Sodium (Porcine) 5,000 unit 11/08/17 10:00 11/10/17 21:27 Heparin - SQ 5,000 unit BID PATRICIA Administration Levofloxacin 250 mg 11/10/17 10:15 11/10/17 15:19 Levaquin - PO 250 mg DAILY PATRICIA Administration Methylprednisolone Sodium Succinate 40 mg 11/11/17 14:00 Solu-Medrol - IVPUSH TID PATRICIA Nebivolol 5 mg 11/08/17 10:00 11/10/17 21:27 Bystolic - PO 5 mg BID PATRICIA Administration Ranolazine 500 mg 11/08/17 22:00 11/10/17 21:27 Ranexa - PO 500 mg BID PATRICIA Administration Valsartan 80 mg 11/09/17 10:00 11/10/17 15:16 Diovan - PO 80 mg DAILY PATRICIA Administration Microbiology 11/08/17 11:15 Blood - Peripheral Venous Blood Culture - Preliminary NO GROWTH OBTAINED AFTER 72 HOURS, INCUBATION TO CONTINUE FOR 2 DAYS. 11/08/17 11:20 Blood - Peripheral Venous Blood Culture - Preliminary NO GROWTH OBTAINED AFTER 72 HOURS, INCUBATION TO CONTINUE FOR 2 DAYS. 11/07/17 22:00 Urine - Urine Clean Catch Urine Culture - Final NO GROWTH OBTAINED 11/07/17 17:45 Nasopharyngeal Swab Influenza Types A,B Antigen (DMAIÁN) - Final , negative 11/07/17 17:45 Nasopharyngeal Swab - Final, negative ASSESSMENT/PLAN: Imaging: CT chest without contrast. Indication: Pneumonia. Technique: Axial noncontrast chest CT with coronal and sagittal reformations. Comparison: 11/05/[address] Findings: Large airways of the central tracheobronchial tree are patent. There is nodularity along the dependent wall of the trachea and right mainstem bronchus, most likely secretions. There is wall thickening along the segmental and subsegmental airways throughout, increased since prior chest CT, reflecting nonspecific airways disease. Moderately severe centrilobular emphysematous changes. There are ill-defined hazy centrilobular groundglass nodular opacities in the left upper lobe, to lesser extent in the anterior right upper lobe and right middle lobe. There are ill-defined centrilobular opacities in the right lung base. There are subsegmental opacities in both lung bases, right more than left favored to represent atelectasis. There is new 10 mm pleural based nodular opacity in the right lung base (image 71 of series 3), which may represent focal atelectatic change. Approximately 2.0 x 1.8 cm right upper lobe nodule with eccentric coarse calcification appears unchanged in size and configuration from the prior CT. There are additional bilateral solid noncalcified nodular opacities, similar in size to 11/05/2016. There are trace layering pleural effusions. There is no pneumothorax. The axillary regions are unremarkable. No pathologically enlarged mediastinal lymph nodes by CT size criteria. There is no evidence of bulky hilar lymphadenopathy, within the limitations of no IV contrast. Shotty subcentimeter pretracheal mediastinal lymph nodes aren't right hilar lymph nodes are similar in size to the prior exam. The heart is not enlarged. Trace pericardial fluid may be physiologic. There is mild to moderate coronary artery calcific atherosclerosis. Normal caliber thoracic aorta with calcific atherosclerosis along the arch and takeoff of the great vessels. Main pulmonary artery measures 30 mm in diameter. There is a small hiatal hernia. There is no mass in the adrenal glands. There are small hypoattenuating lesions in the upper poles of the kidneys which are incompletely visualized, likely cysts. There is osseous demineralization. Chronic anterior wedging compression fracture of the T12 vertebral body with moderate to severe loss of height is unchanged. Impression: 1. Ill-defined bilateral groundglass opacities as above, presumably infectious. Follow-up chest CT is recommended in 3 months. Trace layering bilateral pleural effusions. 2. Bronchial wall thickening along bilateral segmental and subsegmental airways is increased since prior chest CT, reflecting nonspecific airways disease. Please correlate clinically for active bronchitis. 3. Moderately severe centrilobular emphysematous changes. Previously described solid bilateral pulmonary nodules measuring up to 2.0 cm in the right upper lobe are unchanged in size. Continued follow-up is suggested. 4. Prominent main pulmonary artery for degree of emphysematous change. Please correlate clinically for pulmonary artery hypertension. Reported By: Amy Cerna DO 11/08/17 1120 ASSESSMENT/PLAN: 1) Pulm COPD exacerbation - much improved decrease Methylprednisone 40 mg every 8 hours IV - continue duonebs qid - keep spo2 above 92% with supplemental O2 - Pulm Dr Morris following PNA - Cefepime and Zithromax (11/08 - 11/10) transitioned to levaquin as per ID - ID, Dr Estrella consulted and following 2) cardiovascular Chest pain resolved - no events on cardiac monitoring - continue Ranexa hypertension - continue Nebivolol and norvasc, b/p at goal - echo LV WNL, EF 65-70% - myoviewe perfusion scan, negative stress, normal myocardial perfusion, ef 79% . hyperlipidemia - continue Lipitor 10mg F/E/N - Low Na diet - Replete prn PPX - sqh Dispo- requires continued inpatient evaluation Visit type - Emergency Visit Emergency Visit: Yes ED Registration Date: 11/07/17 Care time: The patient presented to the Emergency Department on the above date and was hospitalized for further evaluation of their emergent condition. - New Patient This patient is new to me today: No - Critical Care Critical Care patient: No - Discharge Referral Referred to [facility] No
[2017-11-11 09:09] LABS: MCH 30.2 pg (25.7-33.7); MCHC 32.8 g/dl (32.0-36.0); PLATELET COUNT 367 K/MM3 (134-434); RBC 4.34 M/mm3 (3.60-5.2); WHITE BLOOD COUNT 17.3 K/mm3 (4.0-10.8)
[2017-11-11 09:14] LABS: ALBUMIN 3.9 g/dl (3.5-5.0); ALK PHOS 52 U/L (32-92); ANION GAP 10 (8-16); BILIRUBIN,TOTAL 0.5 mg/dl (0.2-1.0); BLOOD UREA NITROGEN 25 mg/dl (7-18); CALCIUM 8.9 mg/dl (8.4-10.2); CHLORIDE 96 mmol/L (98-107); CO2 33 mmol/L (22-28); CREATININE 0.9 mg/dl (0.6-1.3); GLUCOSE,RANDOM 159 mg/dl (74-106); MAGNESIUM 2.3 mg/dL (1.8-2.4); PHOSPHOROUS 3.1 mg/dl (2.5-4.6); POTASSIUM 3.9 mmol/L (3.5-5.1); SGOT/AST 35 U/L (10-42); SGPT/ALT 43 U/L (10-40); SODIUM 139 mmol/L (136-145); TOT PROT 6.9 g/dl (6.4-8.3)
[2017-11-11] MEDS ORDERED: PT OWN MED DRAWER 7, Y5N ONE ×3 (09:42→21:09)
[2017-11-11] MEDS: NEBIVOLOL 5 MG TABLET (FP) PO SCH ×2 (09:47→21:32)
[2017-11-11] MEDS: VALSARTAN 80 MG TABLET (UD) PO SCH (09:47)
[2017-11-11] MEDS: ASPIRIN COATED 81 MG TABLET.EC PO SCH (09:48)
[2017-11-11] MEDS: HEPARIN NA (PORCINE) 5,000 UNITS/ML 1ML VIAL SQ SCH ×2 (09:48→21:32)
[2017-11-11] MEDS: RANOLAZINE E.R. 500 MG TABLET (FP) PO SCH ×2 (09:48→21:32)
[2017-11-11] MEDS: amLODIPine BESYLATE 5 MG TABLET (FP) PO SCH (09:48)
[2017-11-11] MEDS: FUROSEMIDE 20 MG TABLET (FP) PO SCH (09:48)
[2017-11-11] MEDS: LEVOFLOXACIN 250 MG TABLET (FP) PO SCH (09:48)
[2017-11-11] MEDS: BUDESONIDE/FORMETEROL FUMARATE 80/4.5 mcg INHALER IH SCH ×2 (09:49→21:32)
--- NOTE | 2017-11-11 10:09 | PN ---
Progress Note, Physician Chief Complaint: Events noted Feels better Cardiac testing report noted and as outlined on previous note History of Present Illness: Patient was seen and examined. Awake and alert. Chart was reviewed Denies chest pain, SOB or palpitations - Current Medication List Current Medications: Active Medications Albuterol/Ipratropium (Duoneb -) 1 amp NEB RQID [facility] Last Admin: 11/11/17 08:30 Dose: 1 amp Amlodipine Besylate (Norvasc -) 5 mg PO DAILY [facility] Last Admin: 11/11/17 09:48 Dose: 5 mg Aspirin (Ecotrin -) 81 mg PO DAILY [facility] Last Admin: 11/11/17 09:48 Dose: 81 mg Atorvastatin Calcium (Lipitor -) 10 mg PO HS [facility] Last Admin: 11/10/17 21:27 Dose: 10 mg Budesonide/Formoterol Fumarate (Symbicort 80/4.5mcg -) 2 puff IH BID [facility] Last Admin: 11/11/17 09:49 Dose: 2 puff Furosemide (Lasix -) 20 mg PO DAILY [facility] Last Admin: 11/11/17 09:48 Dose: 20 mg Heparin Sodium (Porcine) (Heparin -) 5,000 unit SQ BID [facility] Last Admin: 11/11/17 09:48 Dose: 5,000 unit Levofloxacin (Levaquin -) 250 mg PO DAILY [facility] Last Admin: 11/11/17 09:48 Dose: 250 mg Methylprednisolone Sodium Succinate (Solu-Medrol -) 40 mg IVPUSH TID [facility] Nebivolol (Bystolic -) 5 mg PO BID [facility] Last Admin: 11/11/17 09:47 Dose: 5 mg Ranolazine (Ranexa -) 500 mg PO BID [facility] Last Admin: 11/11/17 09:48 Dose: 500 mg Valsartan (Diovan -) 80 mg PO DAILY [facility] Last Admin: 11/11/17 09:47 Dose: 80 mg - Objective Vital Signs: Vital Signs Temperature 98.3 F 11/11/17 06:00 Pulse Rate 58 L 11/11/17 08:34 Respiratory Rate 19 11/11/17 06:00 Blood Pressure 152/62 11/11/17 06:00 O2 Sat by Pulse Oximetry (%) 95 11/11/17 08:34 Neck: Yes: Supple Cardiovascular: Yes: Regular Rate and Rhythm, Murmur (Soft SM), S1, S2 Respiratory: Yes: Diminished Gastrointestinal: Yes: Normal Bowel Sounds, Soft. No: Tenderness Edema: No Labs: CBC, BMP 11/11/17 07:00 11/11/17 07:00 Problem List - Problems (1) Pulmonary hypertension Code(s): I27.20 - PULMONARY HYPERTENSION, UNSPECIFIED (2) COPD exacerbation Code(s): J44.1 - CHRONIC OBSTRUCTIVE PULMONARY DISEASE W (ACUTE) EXACERBATION (3) Diastolic dysfunction without heart failure Code(s): I51.9 - HEART DISEASE, UNSPECIFIED (4) Hyperlipidemia Code(s): E78.5 - HYPERLIPIDEMIA, UNSPECIFIED Qualifiers: Hyperlipidemia type: pure hypercholesterolemia Qualified Code(s): E78.00 - Pure hypercholesterolemia, unspecified; E78.0 - Pure hypercholesterolemia (5) Leukopenia Code(s): D72.819 - DECREASED WHITE BLOOD CELL COUNT, UNSPECIFIED (6) Acute on chronic respiratory failure with hypoxemia Code(s): J96.21 - ACUTE AND CHRONIC RESPIRATORY FAILURE WITH HYPOXIA (7) Hyponatremia Code(s): E87.1 - HYPO-OSMOLALITY AND HYPONATREMIA Assessment/Plan 1. Acute exacerbation of chronic obstructive airway disease with acute bronchitis 2. Acute on chronic class I-II NYHA classification LV congestive failure related to diastolic LV dysfunction, resolving 3. CAD angina pectoris with negative Nuclear myocardial perfusion imaging for ischemia 4. HTN 5. Hyperglycemia 6. Hypercholesterolemia 7. Pulmonary HTN, probably multi-factorial (diastolic LV dysfunction and chronic obstructive airway disease) 8. Neutropenia PLAN: 1. Continue Bystolic, Norvasc and Diovan 2. Continue Lasix 3. Continue Ranexa and ASA. Continue Lipitor 4. Antibiotics coverage, IV steroids and bronchodilators Continue present management Rudi Harris MD
--- NOTE | 2017-11-11 10:55 | CONS ---
DATE OF CONSULTATION: 11/08/2017 REQUESTING PHYSICIAN: Edgar Morris MD CHIEF COMPLAINT: Dyspnea, chest heaviness, cardiovascular evaluation. HISTORY: An 82-year-old female with known history of probable coronary artery disease, angina pectoris, diastolic left ventricular dysfunction with chronic class 1 [place] [employer] classification left ventricular failure, heart murmur related to aortic valve disease, aortic valve stenosis moderate in severity on echocardiography performed recently, hypertensive cardiovascular disease, hypercholesterolemia, advanced chronic obstructive pulmonary disease on home oxygen therapy who presented to [facility] with increasing dyspnea, which has been progressive over the last several days and, in addition, cough productive of yellowish sputum. The patient has been reporting dyspnea with minimal physical exertion and, in addition, increasing bilateral lower extremity edema. The patient, in addition, reported exertional retrosternal chest discomfort described as heaviness, which was alleviated with rest. The patient denied any orthopnea or paroxysmal or nocturnal dyspnea. The patient reported progressive fatigue and tiredness. The patient denied any palpitations, dizziness, lightheadedness, or syncope. Upon evaluation, the patient was noted to have evidence of congestive heart failure on a chest x-ray. PAST MEDICAL HISTORY: Probable coronary artery disease, angina pectoris, diastolic left ventricular dysfunction with chronic class 1 [place] [employer] classification left ventricular failure, aortic valve disease, aortic valve status moderate in severity, hypertensive cardiovascular disease, hypercholesterolemia, advanced chronic obstructive pulmonary disease on home oxygen therapy, pulmonary hypertension probably multifactorial. PAST SURGICAL HISTORY: Cataract extraction, lens implant, appendectomy. SOCIAL HISTORY: Prior history of smoking. Patient quit in the . Smoked for greater than 20 years. FAMILY HISTORY: Positive for coronary artery disease. ALLERGIES: None reported. MEDICAL THERAPY: Currently includes DuoNeb nebulizer, Norvasc 10 mg once a day, Symbicort 2 puffs twice a day, cefepime 1 g every 8 hours, heparin subcutaneously 5000 units twice a day, Zithromax 500 mg once a day, methylprednisolone 40 mg IV every 6 hours, and Bystolic 5 mg twice a day. REVIEW OF SYSTEMS: Head and Neck: Denies headache, photophobia, blurring of vision. Respiratory: Reports cough productive of sputum. Cardiovascular: As noted above. Gastrointestinal: No reported nausea, vomiting, diarrhea, constipation, or abdominal discomfort. Musculoskeletal: No symptoms reported. Endocrine: No symptoms reported. PHYSICAL EXAMINATION: Vital Signs: Blood pressure is 135/46 mmHg, pulse rate 98 beats per minute. Head and Neck: Pupils equal, round, and reactive to light and accommodation. Extraocular muscles are intact. Anicteric sclerae. Negative JVD. Soft bilateral carotid bruits probably transmitted heart murmur. Cardiovascular: S1, S2 regular. Rate grade 2/6 systolic ejection murmur. No clicks or gallops. Abdomen: Soft, benign. Normoactive bowel sounds. Extremities: Trace edema. Have 1+ distal pulses. No calf tenderness. DIAGNOSTIC DATA: Echocardiogram reveals sinus rhythm with sinus arrhythmia, early transition with nonspecific T-wave abnormality. CBC revealed white cell count 2, hemoglobin 11.6, platelet count 225. Basic metabolic profile reveals sodium 137, potassium 3.7, BUN 14, creatinine 0.7, glucose 163, INR 1.20. ASSESSMENT: 1. Clinical presentation is consistent with acute exacerbation of chronic obstructive pulmonary disease, oxygen-dependent obstructive airway disease. 2. Acute on chronic diastolic left ventricular dysfunction with class 1-2 [place] [employer] classification congestive heart failure. 3. Clinical presentation is suggestive of coronary artery disease, angina pectoris progressive. 4. Aortic valve stenosis moderate in severity, aortic valve area of 0.8 cm2. 5. Hypertensive cardiovascular disease. 6. Hyperglycemia. 7. Diabetes mellitus, no history. 8. Hypercholesterolemia. 9. Pulmonary hypertension probably multifactorial including the above-noted diastolic left ventricular dysfunction, aortic stenosis, and chronic obstructive pulmonary disease. 10. Neutropenia. RECOMMENDATION: 1. Continuation of Bystolic therapy with caution. 2. Continuation of Norvasc therapy but decreasing dosage. 3. Addition of MINAL inhibitors or angiotensin receptor blockers considering the above-noted clinical presentation. 4. Addition of diuretics with caution considering the above-noted presentation. 5. Addition of Ranexa consisting the above-noted presentation. 6. Antibiotics, steroids, and bronchodilators as per the Pulmonary team. 7. Obtain lipid profile and hemoglobin A1C and consideration for therapy initiation accordingly. 8. Echocardiography study to be reviewed in reference to the above-noted valvular pathology. 9. Pharmacologic myocardial perfusion imaging study for evaluation of the above-noted presentation to be considered pending review of the above-noted echocardiography. Thank you for the kind referral. CLARITZA MICHELLE M.D. [id number]
[2017-11-11] MEDS: ATORVASTATIN CA 10 MG TABLET (FP) PO SCH (21:32)
[2017-11-12 04:56] VITALS: BP 154/64; TEMP 97.6
[2017-11-12] MEDS: methylPREDNISolone NA SUCC 40 MG/1 ML VIAL IVPUSH SCH (05:26)
--- NOTE | 2017-11-12 07:26 | PN ---
Progress Note, Physician History of Present Illness: pulmonary alert,feeling better,-cp,sob improved. o2 sat 95% on o2 - Current Medication List Current Medications: Active Medications Albuterol/Ipratropium (Duoneb -) 1 amp NEB RQID [facility] Last Admin: 11/11/17 20:03 Dose: 1 amp Amlodipine Besylate (Norvasc -) 5 mg PO DAILY [facility] Last Admin: 11/11/17 09:48 Dose: 5 mg Aspirin (Ecotrin -) 81 mg PO DAILY [facility] Last Admin: 11/11/17 09:48 Dose: 81 mg Atorvastatin Calcium (Lipitor -) 10 mg PO HS [facility] Last Admin: 11/11/17 21:32 Dose: 10 mg Budesonide/Formoterol Fumarate (Symbicort 80/4.5mcg -) 2 puff IH BID [facility] Last Admin: 11/11/17 21:32 Dose: 2 puff Furosemide (Lasix -) 20 mg PO DAILY [facility] Last Admin: 11/11/17 09:48 Dose: 20 mg Heparin Sodium (Porcine) (Heparin -) 5,000 unit SQ BID [facility] Last Admin: 11/11/17 21:32 Dose: 5,000 unit Levofloxacin (Levaquin -) 250 mg PO DAILY [facility] Last Admin: 11/11/17 09:48 Dose: 250 mg Methylprednisolone Sodium Succinate (Solu-Medrol -) 40 mg IVPUSH TID [facility] Last Admin: 11/12/17 05:26 Dose: 40 mg Nebivolol (Bystolic -) 5 mg PO BID [facility] Last Admin: 11/11/17 21:32 Dose: 5 mg Ranolazine (Ranexa -) 500 mg PO BID [facility] Last Admin: 11/11/17 21:32 Dose: 500 mg Valsartan (Diovan -) 80 mg PO DAILY [facility] Last Admin: 11/11/17 09:47 Dose: 80 mg - Objective Vital Signs: Vital Signs Temperature 97.6 F 11/12/17 04:55 Pulse Rate 64 11/12/17 04:55 Respiratory Rate 18 11/12/17 04:55 Blood Pressure 154/64 11/12/17 04:55 O2 Sat by Pulse Oximetry (%) 93 L 11/12/17 04:55 Constitutional: Yes: Well Nourished, Calm Eyes: Yes: WNL HENT: Yes: WNL Neck: Yes: WNL Cardiovascular: Yes: Regular Rate and Rhythm, S1, S2 Respiratory: Yes: Diminished Gastrointestinal: Yes: Normal Bowel Sounds, Soft Extremities: Yes: WNL Edema: No Labs: CBC, BMP Problem List - Problems (1) Leukopenia Code(s): D72.819 - DECREASED WHITE BLOOD CELL COUNT, UNSPECIFIED (2) COPD exacerbation Code(s): J44.1 - CHRONIC OBSTRUCTIVE PULMONARY DISEASE W (ACUTE) EXACERBATION (3) Acute on chronic respiratory failure with hypoxemia Code(s): J96.21 - ACUTE AND CHRONIC RESPIRATORY FAILURE WITH HYPOXIA (4) Hypoxia Code(s): R09.02 - HYPOXEMIA (5) Lung nodule Code(s): R91.1 - SOLITARY PULMONARY NODULE Assessment/Plan IMP ACUTE ON CHRONIC HYPOXEMIC RESPIRATORY FAILURE improving COPD EXACERBATION LIKELY VIRAL BRONCHITIS RUL NODULE STABLE LEUKOPENIA IMPROVED PLAN ABX PREDNISONE TAPER SUPPLEMENTAL O2 INHALED BRONCHODILATORS DR ARANDA Problem List - Problems (1) Leukopenia Code(s): D72.819 - DECREASED WHITE BLOOD CELL COUNT, UNSPECIFIED (2) COPD exacerbation Code(s): J44.1 - CHRONIC OBSTRUCTIVE PULMONARY DISEASE W (ACUTE) EXACERBATION (3) Acute on chronic respiratory failure with hypoxemia Code(s): J96.21 - ACUTE AND CHRONIC RESPIRATORY FAILURE WITH HYPOXIA (4) Hypoxia Code(s): R09.02 - HYPOXEMIA (5) Lung nodule Code(s): R91.1 - SOLITARY PULMONARY NODULE
[2017-11-12] MEDS: ALBUTEROL SO4 2.5/IPRATROPIUM 0.5 INH SOL 3 ML VIAL.NEB. NEB SCH ×2 (08:45→12:50)
[2017-11-12 09:03] VITALS: PULSE 60
[2017-11-12] MEDS ORDERED: PT OWN MED DRAWER 7, Y5N ONE (10:20)
[2017-11-12] MEDS: ASPIRIN COATED 81 MG TABLET.EC PO SCH (10:29)
[2017-11-12] MEDS: LEVOFLOXACIN 250 MG TABLET (FP) PO SCH (10:29)
[2017-11-12] MEDS: amLODIPine BESYLATE 5 MG TABLET (FP) PO SCH (10:29)
[2017-11-12] MEDS: FUROSEMIDE 20 MG TABLET (FP) PO SCH (10:29)
[2017-11-12] MEDS: BUDESONIDE/FORMETEROL FUMARATE 80/4.5 mcg INHALER IH SCH (10:30)
[2017-11-12] MEDS: NEBIVOLOL 5 MG TABLET (FP) PO SCH (10:30)
[2017-11-12] MEDS: VALSARTAN 80 MG TABLET (UD) PO SCH (10:30)
[2017-11-12] MEDS: HEPARIN NA (PORCINE) 5,000 UNITS/ML 1ML VIAL SQ SCH (10:30)
--- NOTE | 2017-11-12 11:24 | PN ---
Physical Exam: SUBJECTIVE: Patient seen and examined, sitting in bedside chair, denies any chest pain or shortness of breath. OBJECTIVE: This is an 82 year old female with a significant PMH of COPD and PNA 1 year ago who presented to the ED with a 3 day history of increasingly productive cough ( brownish phlegm) and SOB. She is supposed to be on continuous home O2 but does not utilize it consistently during the day. Her oxygen saturation at home was 54 % on room air this morning which prompted her daughter to bring her to the ED. ER course was notable for: (1) Pulse ox 75 on RA, up to 89% on 3LNC (2) given ceftriaxone, zithromax, solumedrol 60, duonebs (3) WBC 2.0 Vital Signs Period Temp Pulse Resp BP Sys/Huitron Pulse Ox Last 24 Hr 97.6 F-98.3 F 60-64 18-19 130-154/60-66 92-95 GENERAL: The patient is awake, alert, and fully oriented, in no acute distress. HEAD: Normal with no signs of trauma. EYES: PERRL, extraocular movements intact, sclera anicteric, conjunctiva clear. No ptosis. ENT: Ears normal, nares patent, oropharynx clear without exudates, moist mucous membranes. NECK: Trachea midline, full range of motion, supple. LUNGS: Breath sounds equal, clear to auscultation bilaterally to apexes, diminished to base, no wheezes, no crackles, no accessory muscle use. HEART: Regular rate and rhythm, S1, S2 without murmur, rub or gallop. ABDOMEN: Soft, nontender, nondistended, normoactive bowel sounds, no guarding, no rebound, no hepatosplenomegaly, no masses. EXTREMITIES: 2+ pulses, warm, well-perfused, no edema. NEUROLOGICAL: Cranial nerves II through XII grossly intact. Normal speech, gait not observed. PSYCH: Normal mood, normal affect. SKIN: Warm, dry, normal turgor, no rashes or lesions noted Laboratory Results - last 24 hr 11/11/17 07:00 Neutrophils % (Manual) 32.0 L Band Neutrophils % 11.0 H Lymphocytes % (Manual) 20.0 Monocytes % (Manual) 6 Myelocytes % (Man) 22 H Metamyelocytes 8 H Active Medications Generic Name Dose Route Start Last Admin Trade Name Freq PRN Reason Stop Dose Admin Albuterol/Ipratropium 1 amp 11/07/17 20:00 11/12/17 08:45 Duoneb - NEB 1 amp RQID PATRICIA Administration Amlodipine Besylate 5 mg 11/08/17 18:20 11/12/17 10:29 Norvasc - PO 5 mg DAILY PATRICIA Administration Aspirin 81 mg 11/09/17 10:00 11/12/17 10:29 Ecotrin - PO 81 mg DAILY PATRICIA Administration Atorvastatin Calcium 10 mg 11/09/17 22:00 11/11/17 21:32 Lipitor - PO 10 mg HS PATRICIA Administration Budesonide/Formoterol Fumarate 2 puff 11/08/17 10:00 11/12/17 10:30 Symbicort 80/4.5mcg - IH 2 puff BID PATRICIA Administration Furosemide 20 mg 11/09/17 10:00 11/12/17 10:29 Lasix - PO 20 mg DAILY PATRICIA Administration Heparin Sodium (Porcine) 5,000 unit 11/08/17 10:00 11/12/17 10:30 Heparin - SQ 5,000 unit BID [facility] Administration Levofloxacin 250 mg 11/10/17 10:15 11/12/17 10:29 Levaquin - PO 250 mg DAILY PATRICIA Administration Methylprednisolone Sodium Succinate 40 mg 11/11/17 14:00 11/12/17 05:26 Solu-Medrol - IVPUSH 40 mg TID PATRICIA Administration Nebivolol 5 mg 11/08/17 10:00 11/12/17 10:30 Bystolic - PO 5 mg BID PATRICIA Administration Ranolazine 500 mg 11/08/17 22:00 11/11/17 21:32 Ranexa - PO 500 mg BID [facility] Administration Valsartan 80 mg 11/09/17 10:00 11/12/17 10:30 Diovan - PO 80 mg DAILY PATRICIA Administration Microbiology 11/08/17 11:15 Blood - Peripheral Venous Blood Culture - Preliminary NO GROWTH OBTAINED AFTER 72 HOURS, INCUBATION TO CONTINUE FOR 2 DAYS. 11/08/17 11:20 Blood - Peripheral Venous Blood Culture - Preliminary NO GROWTH OBTAINED AFTER 72 HOURS, INCUBATION TO CONTINUE FOR 2 DAYS. 11/07/17 22:00 Urine - Urine Clean Catch Urine Culture - Final NO GROWTH OBTAINED 11/07/17 17:45 Nasopharyngeal Swab Influenza Types A,B Antigen (DAMIÁN) - Final , negative 11/07/17 17:45 Nasopharyngeal Swab - Final, negative Imaging: CT chest without contrast. Indication: Pneumonia. Technique: Axial noncontrast chest CT with coronal and sagittal reformations. Comparison: 11/05/[address] Findings: Large airways of the central tracheobronchial tree are patent. There is nodularity along the dependent wall of the trachea and right mainstem bronchus, most likely secretions. There is wall thickening along the segmental and subsegmental airways throughout, increased since prior chest CT, reflecting nonspecific airways disease. Moderately severe centrilobular emphysematous changes. There are ill-defined hazy centrilobular groundglass nodular opacities in the left upper lobe, to lesser extent in the anterior right upper lobe and right middle lobe. There are ill-defined centrilobular opacities in the right lung base. There are subsegmental opacities in both lung bases, right more than left favored to represent atelectasis. There is new 10 mm pleural based nodular opacity in the right lung base (image 71 of series 3), which may represent focal atelectatic change. Approximately 2.0 x 1.8 cm right upper lobe nodule with eccentric coarse calcification appears unchanged in size and configuration from the prior CT. There are additional bilateral solid noncalcified nodular opacities, similar in size to 11/05/2016. There are trace layering pleural effusions. There is no pneumothorax. The axillary regions are unremarkable. No pathologically enlarged mediastinal lymph nodes by CT size criteria. There is no evidence of bulky hilar lymphadenopathy, within the limitations of no IV contrast. Shotty subcentimeter pretracheal mediastinal lymph nodes aren't right hilar lymph nodes are similar in size to the prior exam. The heart is not enlarged. Trace pericardial fluid may be physiologic. There is mild to moderate coronary artery calcific atherosclerosis. Normal caliber thoracic aorta with calcific atherosclerosis along the arch and takeoff of the great vessels. Main pulmonary artery measures 30 mm in diameter. There is a small hiatal hernia. There is no mass in the adrenal glands. There are small hypoattenuating lesions in the upper poles of the kidneys which are incompletely visualized, likely cysts. There is osseous demineralization. Chronic anterior wedging compression fracture of the T12 vertebral body with moderate to severe loss of height is unchanged. Impression: 1. Ill-defined bilateral groundglass opacities as above, presumably infectious. Follow-up chest CT is recommended in 3 months. Trace layering bilateral pleural effusions. 2. Bronchial wall thickening along bilateral segmental and subsegmental airways is increased since prior chest CT, reflecting nonspecific airways disease. Please correlate clinically for active bronchitis. 3. Moderately severe centrilobular emphysematous changes. Previously described solid bilateral pulmonary nodules measuring up to 2.0 cm in the right upper lobe are unchanged in size. Continued follow-up is suggested. 4. Prominent main pulmonary artery for degree of emphysematous change. Please correlate clinically for pulmonary artery hypertension. Reported By: Amy Cerna DO 11/08/17 1120 HOSPITAL COURSE: Patient was 1) Pulm COPD exacerbation - much improved decrease Methylprednisone 40 mg every 8 hours IV - continue duonebs qid - keep spo2 above 92% with supplemental O2 - Pulm Dr Morris following PNA - Cefepime and Zithromax (11/08 - 11/10) transitioned to levaquin as per ID - ID, Dr Estrella consulted and following 2) cardiovascular Chest pain resolved - no events on cardiac monitoring - continue Ranexa hypertension - continue Nebivolol and norvasc, b/p at goal - echo LV WNL, EF 65-70% - myoviewe perfusion scan, negative stress, normal myocardial perfusion, ef 79% . hyperlipidemia - continue Lipitor 10mg
[2017-11-12] MEDS ORDERED: predniSONE 20 MG TABLET (UD) PO ONE (12:00)
--- NOTE | 2017-11-12 12:03 | DS ---
Physical Exam: SUBJECTIVE: Patient seen and examined, sitting at bedside, denies any chest pain or shortness of breath OBJECTIVE: This is an 82 year old female with a significant PMH of COPD and PNA 1 year ago who presented to the ED with a 3 day history of increasingly productive cough ( brownish phlegm) and SOB. She is supposed to be on continuous home O2 but does not utilize it consistently during the day. Her oxygen saturation at home was 54 % on room air this morning which prompted her daughter to bring her to the ED. ER course was notable for: (1) Pulse ox 75 on RA, up to 89% on 3LNC (2) given ceftriaxone, zithromax, solumedrol 60, duonebs (3) WBC 2.0 Vital Signs Period Temp Pulse Resp BP Sys/Huitron Pulse Ox Last 24 Hr 97.6 F-98.3 F 60-64 18-19 130-154/60-66 92-95 PHYSICAL EXAM GENERAL: The patient is awake, alert, and fully oriented, in no acute distress. HEAD: Normal with no signs of trauma. EYES: PERRL, extraocular movements intact, sclera anicteric, conjunctiva clear. No ptosis. ENT: Ears normal, nares patent, oropharynx clear without exudates, moist mucous membranes. NECK: Trachea midline, full range of motion, supple. LUNGS: Breath sounds equal, clear to auscultation bilaterally, diminished to base, no wheezes, no crackles, no accessory muscle use. HEART: Regular rate and rhythm, S1, S2 without murmur, rub or gallop. ABDOMEN: Soft, nontender, nondistended, normoactive bowel sounds, no guarding, no rebound, no hepatosplenomegaly, no masses. EXTREMITIES: 2+ pulses, warm, well-perfused, no edema. NEUROLOGICAL: Cranial nerves II through XII grossly intact. Normal speech, gait not observed. PSYCH: Normal mood, normal affect. SKIN: Warm, dry, normal turgor, no rashes or lesions noted LABS Laboratory Results - last 24 hr CBC WBC 17.3 K/mm3 (4.0-10.8) H D 11/11/17 07:00 RBC 4.34 M/mm3 (3.60-5.2) 11/11/17 07:00 Hgb 13.1 GM/dl (10.7-15.3) D 11/11/17 07:00 Hct 39.9 % (32.4-45.2) D 11/11/17 07:00 MCV 92.0 fl (80-96) 11/11/17 07:00 MCH 30.2 pg (25.7-33.7) 11/11/17 07:00 MCHC 32.8 g/dl (32.0-36.0) 11/11/17 07:00 RDW 13.5 % (11.6-15.6) 11/11/17 07:00 Plt Count 367 K/MM3 (134-434) 11/11/17 07:00 MPV 11.0 fl (7.5-11.1) 11/11/17 07:00 Neutrophils % No Result Required. 11/11/17 07:00 Neutrophils % (Manual) 32.0 % (42.8-82.8) L 11/11/17 07:00 Band Neutrophils % 11.0 % (0-10) H 11/11/17 07:00 Lymphocytes % No Result Required. 11/11/17 07:00 Lymphocytes % (Manual) 20.0 % (8-40) 11/11/17 07:00 Monocytes % [employer]falfa Dehydrator Operator 11/08/17 07:47 Monocytes % (Manual) 6 % (3.8-10.2) 11/11/17 07:00 Eosinophils % [employer] Dehydrator Operator 11/08/17 07:47 Eosinophils % (Manual) 2.0 % (0-4.5) 11/09/17 06:00 Basophils % [employer]falfa Dehydrator Operator 11/08/17 07:47 Myelocytes % (Man) 22 % (0-2) H 11/11/17 07:00 Metamyelocytes 8 % (0-2) H 11/11/17 07:00 Differential Comment Many large platelets 11/10/17 06:45 Platelet Estimate Adequate 11/09/17 06:00 Platelet Comment Few giant plts 11/08/17 07:47 CMP Sodium 139 mmol/L (136-145) 11/11/17 07:00 Potassium 3.9 mmol/L (3.5-5.1) 11/11/17 07:00 Chloride 96 mmol/L (98-107) L 11/11/17 07:00 Carbon Dioxide 33 mmol/L (22-28) H 11/11/17 07:00 Anion Gap 10 (8-16) 11/11/17 07:00 BUN 25 mg/dl (7-18) H 11/11/17 07:00 Creatinine 0.9 mg/dl (0.6-1.3) 11/11/17 07:00 Creat Clearance w eGFR 59.65 (>60) 11/11/17 07:00 Random Glucose 159 mg/dl (74-106) H 11/11/17 07:00 Lactic Acid 1.2 mmol/L (0.0-2.0) 11/07/17 17:45 Calcium 8.9 mg/dl (8.4-10.2) 11/11/17 07:00 Phosphorus 3.1 mg/dl (2.5-4.6) D 11/11/17 07:00 Magnesium 2.3 mg/dL (1.8-2.4) 11/11/17 07:00 Total Bilirubin 0.5 mg/dl (0.2-1.0) D 11/11/17 07:00 AST 35 U/L (10-42) 11/11/17 07:00 ALT 43 U/L (10-40) H 11/11/17 07:00 Alkaline Phosphatase 52 U/L (32-92) 11/11/17 07:00 Creatine Kinase 220 IU/L (26-192) H 11/07/17 14:50 Creatine Kinase Index 0.7 % (0.0-5.0) 11/07/17 14:50 CK-MB (CK-2) 1.7 ng/mL (0.3-4.0) 11/07/17 14:50 Troponin I < 0.03 ng/ml (0.03-0.50) L 11/07/17 14:50 B-Natriuretic Peptide 1771.66 pg/ml (5-450) H 11/07/17 16:30 Total Protein 6.9 g/dl (6.4-8.3) 11/11/17 07:00 Albumin 3.9 g/dl (3.5-5.0) 11/11/17 07:00 Triglycerides 89 mg/dl (35-160) 11/09/17 06:00 Cholesterol 219 mg/dl 11/09/17 06:00 Total LDL Cholesterol 141 mg/dl 11/09/17 06:00 HDL Cholesterol 60 mg/dl (29-89) 11/09/17 06:00 Imaging: CT chest without contrast. Indication: Pneumonia. Technique: Axial noncontrast chest CT with coronal and sagittal reformations. Comparison: 11/05/[address] Findings: Large airways of the central tracheobronchial tree are patent. There is nodularity along the dependent wall of the trachea and right mainstem bronchus, most likely secretions. There is wall thickening along the segmental and subsegmental airways throughout, increased since prior chest CT, reflecting nonspecific airways disease. Moderately severe centrilobular emphysematous changes. There are ill-defined hazy centrilobular groundglass nodular opacities in the left upper lobe, to lesser extent in the anterior right upper lobe and right middle lobe. There are ill-defined centrilobular opacities in the right lung base. There are subsegmental opacities in both lung bases, right more than left favored to represent atelectasis. There is new 10 mm pleural based nodular opacity in the right lung base (image 71 of series 3), which may represent focal atelectatic change. Approximately 2.0 x 1.8 cm right upper lobe nodule with eccentric coarse calcification appears unchanged in size and configuration from the prior CT. There are additional bilateral solid noncalcified nodular opacities, similar in size to 11/05/2016. There are trace layering pleural effusions. There is no pneumothorax. The axillary regions are unremarkable. No pathologically enlarged mediastinal lymph nodes by CT size criteria. There is no evidence of bulky hilar lymphadenopathy, within the limitations of no IV contrast. Shotty subcentimeter pretracheal mediastinal lymph nodes aren't right hilar lymph nodes are similar in size to the prior exam. The heart is not enlarged. Trace pericardial fluid may be physiologic. There is mild to moderate coronary artery calcific atherosclerosis. Normal caliber thoracic aorta with calcific atherosclerosis along the arch and takeoff of the great vessels. Main pulmonary artery measures 30 mm in diameter. There is a small hiatal hernia. There is no mass in the adrenal glands. There are small hypoattenuating lesions in the upper poles of the kidneys which are incompletely visualized, likely cysts. There is osseous demineralization. Chronic anterior wedging compression fracture of the T12 vertebral body with moderate to severe loss of height is unchanged. Impression: 1. Ill-defined bilateral groundglass opacities as above, presumably infectious. Follow-up chest CT is recommended in 3 months. Trace layering bilateral pleural effusions. 2. Bronchial wall thickening along bilateral segmental and subsegmental airways is increased since prior chest CT, reflecting nonspecific airways disease. Please correlate clinically for active bronchitis. 3. Moderately severe centrilobular emphysematous changes. Previously described solid bilateral pulmonary nodules measuring up to 2.0 cm in the right upper lobe are unchanged in size. Continued follow-up is suggested. 4. Prominent main pulmonary artery for degree of emphysematous change. Please correlate clinically for pulmonary artery hypertension. Reported By: Amy Cerna DO 11/08/17 1120 Microbiology 11/08/17 11:15 Blood - Peripheral Venous Blood Culture - Preliminary NO GROWTH OBTAINED AFTER 96 HOURS, INCUBATION TO CONTINUE FOR 1 DAYS. 11/08/17 11:20 Blood - Peripheral Venous Blood Culture - Preliminary NO GROWTH OBTAINED AFTER 96 HOURS, INCUBATION TO CONTINUE FOR 1 DAYS. 11/07/17 22:00 Urine - Urine Clean Catch Urine Culture - Final NO GROWTH OBTAINED 11/07/17 17:45 Nasopharyngeal Swab Influenza Types A,B Antigen (DAMIÁN) - Final , negative 11/07/17 17:45 Nasopharyngeal Swab - Final, negative HOSPITAL COURSE: Patient was admitted from the emergency department for COPD exacerbation, much improved after starting Methylprednisone 40 mg every 8 hours IV, started on duonebs qid standing. spo2 was kept above 92% with supplemental O2, patient' s private water plant maintenance mechanic, Dr Morris was consulted and followed patient throughout admission. She was noted to have community acquired PNA, Cefepime and Zithromax (11/08 - 11/10) transitioned to levaquin as per ID, Dr Estrella, ID was consulted Chest pain resolved after hospital day 1, most likely pleuretic, no events on cardiac monitoring. Ranexa was continued throughout admission. blood pressure remained at goal with Nebivolol and norvasc. ECHO LV WNL, EF 65- 70%. myoviewe perfusion scan, negative stress, normal myocardial perfusion, ef 79%. lipid profile was noted and patient was started on Lipitor 10mg. Date of Admission:11/07/17 Date of Discharge: 11/12/17 Minutes to complete discharge: 45 Discharge Summary Reason For Visit: PNUEMONIA Current Active Problems COPD exacerbation (Acute) Diastolic dysfunction without heart failure (Acute) Hyperlipidemia (Acute) Hypertensive cardiomyopathy (Acute) Leukopenia (Acute) Pulmonary hypertension (Acute) Condition: Improved - Instructions Diet, Activity, Other Instructions: you were to the hospital for pneumonia and COPD excerbation please continue prednisone as prescribed, take prednisone with food continue levaquin daily continue advair daily and albuterol nebulizer every 4 hours as needed for shortness of breath or wheezing diovan, renexa, and lasix was added to your medication regimen as per the recommendation of the surg rn please follow up with Dr Morris within 3 weeks please follow up with Dr Ma cardiology within 3 weeks if any new or persistent symptoms develop please return to the emergency department Referrals: Edgar Morris MD [Staff Physician] - 3 Weeks Tera Tyson MD [Staff Physician] - 3 Weeks Ольга Rico MD [Primary Care Provider] - Jesus Romeo MD [Staff Physician] - Disposition: VNS/HOME HEALTH CARE - Home Medications Comprehensive Discharge Medication List: Ambulatory Orders Amlodipine Besylate [Norvasc -] 10 mg PO DAILY 12/28/13 Nebivolol HCl [Bystolic] 5 mg PO BID 12/28/13 Salmeterol/Fluticasone [Advair 250Mcg/50Mcg -] 1 inh IH BID 12/28/13 Albuterol Sulfate [Proair Respiclick] 90 mcg IH Q6H PRN #1 [email or web address] 11/08/16 Aspirin Coated [Ecotrin -] 81 mg PO DAILY #30 tablet.ec 11/12/17 Atorvastatin Ca [Lipitor] 10 mg PO HS #30 tablet 11/12/17 Furosemide [Lasix -] 20 mg PO DAILY #30 tablet 11/12/17 Levofloxacin [Levaquin -] 250 mg PO DAILY #4 tablet 11/12/17 Prednisone [Deltasone -] 5 mg PO ASDIR #32 tab 11/12/17 Ranolazine [Ranexa -] 500 mg PO BID #60 tab 11/12/17 Valsartan [Diovan] 80 mg PO DAILY #30 tablet 11/12/17 This patient is new to me today: No Emergency Visit: Yes ED Registration Date: 11/07/17 Care time: The patient presented to the Emergency Department on the above date and was hospitalized for further evaluation of their emergent condition. Critical Care patient: No - Discharge Referral Referred to [facility] No
[2017-11-12] MEDS: RANOLAZINE E.R. 500 MG TABLET (FP) PO SCH (12:05)
== END 2017-11-12 14:27 | disposition home health service (06) | DRG 189 ==
LOC: FER 13:05 → FM/S 21:28
PROVIDERS: ADMIT Internal Medicine; ATTEND Nurse Practitioner Family
DX: J96.01 Acute respiratory failure with hypoxia (principal); J18.9 Pneumonia, unspecified organism; I50.33 Acute on chronic diastolic (congestive) heart failure; J44.1 Chronic obstructive pulmonary disease with (acute) exacerbation; J40 Bronchitis, not specified as acute or chronic; Z87.891 Personal history of nicotine dependence; R91.1 Solitary pulmonary nodule; D70.9 Neutropenia, unspecified; I27.20 Pulmonary hypertension, unspecified; I11.0 Hypertensive heart disease with heart failure; I35.0 Nonrheumatic aortic (valve) stenosis; R73.9 Hyperglycemia, unspecified; I25.119 Atherosclerotic heart disease of native coronary artery with unspecified angina pectoris
CPT/HCPCS: 36415; 36600; 71045-TC; 71250-TC; 78452-TC; 80048; 80053; 80061; 81003; 81015; 82375; 82550; 82553; 82803; 83050; 83605; 83735; 83880; 84100; 84484; 85025; 85610; 87040; 87086; 87804; 93005; 93017; 93306-TC; 94640; 97116-GP; 97161-GP; 99284-25; A9502

== ENCOUNTER 2021-02-12 16:00 | Emergency (ER) | payer OTHER ==
[2021-02-12 16:59] VITALS: BP 150/52; PULSE 66; TEMP 98.9; BMI 24.0
[2021-02-12 18:01] LABS: HEMATOCRIT 30.9 % (32.4-45.2); HEMOGLOBIN 10.1 GM/dl (10.7-15.3); MCH 28.7 pg (25.7-33.7); MCHC 32.8 g/dl (32.0-36.0); MEAN CELL VOLUME 87.7 fl (80-96); MEAN PLT VOLUME 10.3 fl (7.5-11.1); PLATELET COUNT 832 K/MM3 (134-434); RBC 3.52 M/mm3 (3.60-5.2); RDW 17.3 % (11.6-15.6); WHITE BLOOD COUNT 3.3 K/mm3 (4.0-10.8)
[2021-02-12] MEDS ORDERED: ACETAMINOPHEN 500 MG TABLET (FP) PO ONE (18:13)
[2021-02-12 18:14] LABS: ALBUMIN 3.4 g/dl (3.4-5.0); BILIRUBIN,TOTAL 0.4 mg/dl (0.2-1); CALCIUM 8.8 mg/dl (8.5-10); CREATININE 0.9 mg/dl (0.55-1.3); TOT PROT 5.9 g/dl (6.4-8.2)
[2021-02-12] MEDS ORDERED: ACETAMINOPHEN 500 MG TABLET (FP) ONE (18:14)
[2021-02-12 18:33] LABS: EPITHELIAL CELLS FEW /hpf
[2021-02-12] MEDS ORDERED: CEPHALEXIN MONOHYDRATE 500 MG CAPSULE (UD) PO ONE (18:58)
[2021-02-12] MEDS ORDERED: CEPHALEXIN MONOHYDRATE 500 MG CAPSULE (UD) ONE (19:05)
[2021-02-12 19:57] LABS: PLATELET ESTIMATE INCREASED
[2021-02-12 19:58] LABS: ANISOCYTOSIS 1+
== END 2021-02-12 19:55 | disposition home or self-care (01) ==
LOC: FER 16:00
DX: L03.114 Cellulitis of left upper limb (principal); M25.531 Pain in right wrist; M25.522 Pain in left elbow
CPT/HCPCS: 36415; 70450-TC; 70486-TC; 71045-TC-FY; 73070-TC-LT-FY; 73110-TC-LT-FY; 73130-TC-LT-FY; 80053; 81003; 81015; 85025; 87086; 99285-25